=== PATIENT | female | born 1950 | race Caucasian/White ===

== ENCOUNTER 2016-09-03 07:36 | Outpatient (RCR) | payer BC ==
--- OUTSIDE RECORDS SUMMARY | 2016-08-28 08:23 | XMS REPORT | Continuity of Care Document ---
Author Author [facility] Organization [facility] Address Unknown Phone Unavailable Care Team Providers Care Human Resources Training Manager Name Role Phone MANE CUNNINGHAM MD PCP Insurance Providers Payer Name Policy Number Subscriber Name Relationship [facility] [id number] Glenda George 20 Self / Same As Patient Advance Directives Directive Response Recorded Date/Time Advance Directives No 01/04/15 7:58am Health Care Power of Pmp No 01/04/15 7:58am Organ Donor Yes 01/04/15 7:58am Resuscitation Status Full Code 01/04/15 7:58am Problems No known problems or medical conditions. Medications Medication Dose Route Sig Days/Qty Instructions Order Date Discontinued Date Status [place]-3/Dha/Epa/Fish Oil 2,000 Mg PO DAILY TAKES 2 (1000MG) CAPS IN THE MORNING AND 1 (1000MG) CAP IN THE EVENING 01/23/13 Active Niacin/Inositol Niacinate 1 Each PO DAILY 01/23/13 03/09/13 Discontinued Aspirin 81 Mg PO DAILY 01/23/13 Active Amlodipine Besylate (Norvasc 5 Mg) 7.5 Mg PO BEDTIME 01/23/13 Active Lisinopril 40 Mg PO DAILY 01/23/13 03/09/13 Discontinued Pravastatin Sodium 40 Mg PO DAILY 01/23/13 Active Metformin HCl (Glucophage) 1,000 Mg PO TWICE A DAY 01/23/13 Active Estradiol/Drospirenone 1 Each PO DAILY 01/23/13 03/09/13 Discontinued [place]-3/Dha/Epa/Fish Oil 1,000 Mg PO BEDTIME TAKES 2 (1000MG) CAPS IN THE MORNING AND 1 (1000MG) CAP IN THE EVENING 03/09/13 Active Cyanocobalamin 2,000 Mcg PO DAILY 03/09/13 Active Cholecalciferol 1,000 Unit PO DAILY 03/09/13 Active Ascorbate Calcium 500 Mg PO DAILY 03/09/13 Active Estradiol 1 Mg PO DAILY 03/09/13 Active Pioglitazone Hcl 30 Mg PO DAILY 03/09/13 Active Lisinopril (Zestril) 1 Each PO DAILY 05/11/13 Active Social History Social History Problem Response Recorded Date/Time Recent Foreign Travel No 11/22/2014 7:38am Hospital Discharge Instructions No hospital discharge instructions. Plan of Care No plan of care. Functional Status No functional status results. Allergies, Adverse Reactions, Alerts Allergen Type Severity Reaction Status Last Updated No Known Drug Allergies Allergy Unknown Active 09/12/07 Immunizations Name Given Type Date of Pneumonia Vaccine 06/20/12 Historical Date of Influenza Vaccine 06/20/12 Historical Vital Signs Acute Vital Signs Vital Response Date/Time Temperature (Fahrenheit) 97.5 degrees F (97.6 - 99.5) Temperature (Calculated Celsius) 36.00294 degrees C (36.4 - 37.5) Temperature Source Temporal Pulse Rate (adult) 76 bpm (60 - 90) Respiratory Rate 18 bpm (12 - 24) Blood Pressure 141/69 mm Hg Pain Pain Intensity 0 Height (Feet) 5 feet Height (Inches) 6.00 inches Height (Calculated Centimeters) 167.798977 cm Weight (Pounds) 285 pounds Weight (Ounces) 0.0 oz Weight (Calculated Grams) 967420.827 gm Weight (Calculated Kilograms) 129.480802 kilograms Height 5 ft 6 in Weight 285 lb Body Mass Index 46.0 kg/m^2 Results Laboratory Results Test Name Result Units Flags Reference Collection Date/Time Result Date/ Time Comments White Blood Count 7.1 10^3/uL 4.3-11.0 01/04/2015 7:45am 01/04/2015 8: 38am Red Blood Count 3.27 10^6/uL L 4.35-5.85 01/04/2015 7:45am 01/04/2015 8: 38am Hemoglobin 9.0 G/DL L 11.5-16.0 01/04/2015 7:45am 01/04/2015 8:38am Hematocrit 30 % L 35-52 01/04/2015 7:45am 01/04/2015 8:38am Mean Corpuscular Volume 92 FL 80-99 01/04/2015 7:45am 01/04/2015 8: 38am Mean Corpuscular Hemoglobin 28 PG 25-34 01/04/2015 7:45am 01/04/2015 8: 38am Mean Corpuscular Hemoglobin Concent 30 G/DL L 32-36 01/04/2015 7:45am 8:38am Red Cell Distribution Width 14.9 % H 10.0-14.5 01/04/2015 7:45am 2014 8:38am Platelet Count 225 10^3/uL 130-400 01/04/2015 7:45am 01/04/2015 8:38am Mean Platelet Volume 10.5 FL H 7.4-10.4 01/04/2015 7:45am 01/04/2015 8: 38am Neutrophils (%) (Auto) 63 % 42-75 01/04/2015 7:45am 01/04/2015 8:38am Lymphocytes (%) (Auto) 26 % 12-44 01/04/2015 7:45am 01/04/2015 8:38am Monocytes (%) (Auto) 7 % 0-12 01/04/2015 7:45am 01/04/2015 8:38am Eosinophils (%) (Auto) 4 % 0-10 01/04/2015 7:45am 01/04/2015 8:38am Basophils (%) (Auto) 0 % 0-10 01/04/2015 7:45am 01/04/2015 8:38am Neutrophils # (Auto) 4.4 X 10^3 1.8-7.8 01/04/2015 7:45am 01/04/2015 8: 38am Lymphocytes # (Auto) 1.8 X 10^3 1.0-4.0 01/04/2015 7:45am 01/04/2015 8: 38am Monocytes # (Auto) 0.5 X 10^3 0.0-1.0 01/04/2015 7:45am 01/04/2015 8: 38am Eosinophils # (Auto) 0.3 10^3/uL 0.0-0.3 01/04/2015 7:45am 01/04/2015 8 :38am Basophils # (Auto) 0.0 10^3/uL 0.0-0.1 01/04/2015 7:45am 01/04/2015 8: 38am Sodium Level 139 MMOL/L 135-145 01/04/2015 7:45am 01/04/2015 9:04am Potassium Level 5.0 MMOL/L 3.6-5.0 01/04/2015 7:45am 01/04/2015 9:04am Chloride Level 113 MMOL/L H 98-107 01/04/2015 7:45am 01/04/2015 9:04am Carbon Dioxide Level 19 MMOL/L L 21-32 01/04/2015 7:45am 01/04/2015 9: 04am Blood Urea Nitrogen 27 MG/DL H 7-18 01/04/2015 7:45am 01/04/2015 9:04am Creatinine 0.84 MG/DL 0.60-1.30 01/04/2015 7:45am 01/04/2015 9:04am BUN/Creatinine Ratio 32 01/04/2015 7:45am 01/04/2015 9:04am Estimat Glomerular Filtration Rate > 60 01/04/2015 7:45am 2014 9:04am GFR INTERPRETIVE DATA UNITS FOR ESTIMATED GFR (eGFR): mL/min/1.73 M2 REFERENCE RANGE FOR ESTIMATED GFR (eGFR) eGFR NORMAL eGFR >60 MODERATELY DECREASED eGFR 30-59 SEVERLY DECREASED eGFR 15-29 KIDNEY FAILURE <15 (OR DIALYSIS) Glucose Level 96 MG/DL 70-105 01/04/2015 7:45am 01/04/2015 9:04am Calcium Level 9.4 MG/DL 8.5-10.1 01/04/2015 7:45am 01/04/2015 9:04am Total Bilirubin 0.2 MG/DL 0.1-1.0 01/04/2015 7:45am 01/04/2015 9:04am Alkaline Phosphatase 74 U/L 40-136 01/04/2015 7:45am 01/04/2015 9:04am Aspartate Amino Transf (AST/SGOT) 11 U/L 5-34 01/04/2015 7:45am 2014 9:04am Alanine Aminotransferase (ALT/SGPT) 10 U/L 0-55 01/04/2015 7:45am 01/04 9:04am Total Protein 7.3 G/DL 6.4-8.2 01/04/2015 7:45am 01/04/2015 9:04am Albumin 3.9 G/DL 3.2-4.5 01/04/2015 7:45am 01/04/2015 9:04am Triglycerides Level 141 MG/DL <150 01/04/2015 7:45am 01/04/2015 9:04am Cholesterol Level 154 MG/DL < 200 01/04/2015 7:45am 01/04/2015 9:04am HDL Cholesterol 52 MG/DL 40-60 01/04/2015 7:45am 01/04/2015 9:04am LDL Cholesterol Direct 79 MG/DL 1-129 01/04/2015 7:45am 01/04/2015 9: 04am VLDL Cholesterol 28 MG/DL 5-40 01/04/2015 7:45am 01/04/2015 9:04am Thyroid Stimulating Hormone (TSH) 0.68 UIU/ML 0.35-4.94 01/04/2015 7: 45am 01/04/2015 9:19am Hemoglobin A1c 5.8 % 4.5-6.2 01/04/2015 7:45am 01/04/2015 9:23am Ferritin 121 NG/ML 15-150 01/04/2015 7:45am 01/07/2015 7:36am Iron Level 52 UG/DL 35-180 01/04/2015 7:45am 01/07/2015 7:36am Transferrin % Saturation 17 % 15-50 01/04/2015 7:45am 01/07/2015 7: 36am Total Iron Binding Capacity 315 UG/DL 280-380 01/04/2015 7:45am 2014 7:36am TESTING PERFORMED BY: [facility] [address] [place] [address] Procedures No known history of procedures. Encounters Encounter Location Date/Time Discharged Recurring Via [facility] 02/14/15 8:43am
[2016-08-28 08:57] VITALS: BP 177/74
[2016-08-28] MEDS: NS IV SCH (08:57)
[2016-08-28] MEDS: IRON SUCROSE IV SCH (08:57)
[2016-08-28] MEDS: ACETAMINOPHEN 500 MG TAB (TYLENOL) PO PRN (09:01)
[2016-08-28] MEDS: diphenhydrAMINE 50 MG/ML INJ (BENADRYL) IV PRN (09:01)
[2016-08-28 10:39] VITALS: BP 177/74
[2016-08-31] MEDS: NS IV SCH (16:15)
[2016-08-31] MEDS: IRON SUCROSE IV SCH (16:15)
[2016-08-31 18:03] VITALS: BP 133/64
[~2016-09-03] VITALS: Ht 167.6 cm; Wt 129.3 kg
[~2016-09-03 07:36] MED LIST: AMLO5TAB2 PO; ASCO-262 PO; ASP81TEC PO; CHOL10003 PO; CYAN10007 PO; ESTR-21 PO; ESTR1TAB24 PO; LISI40TA PO; METF-380 PO; NIAC1CAP PO; OMEG-12 PO; PIOG30TA25 PO; PRAV40TA PO
[2016-09-03 07:55] VITALS: BP 141/75
[2016-09-03] MEDS: IRON SUCROSE IV SCH (07:55)
[2016-09-03] MEDS: NS IV SCH (07:55)
[2016-09-03] MEDS: diphenhydrAMINE 50 MG/ML INJ (BENADRYL) IV PRN (08:38)
[2016-09-03] MEDS: ACETAMINOPHEN 500 MG TAB (TYLENOL) PO PRN (08:39)
[2016-09-03 09:20] VITALS: BP 141/75
== END 2016-11-26 | disposition home or self-care (01) ==
LOC: SDC 07:36
PROVIDERS: ATTEND Nurse Practitioner Family
DX: D50.9 Iron deficiency anemia, unspecified (principal)
CPT/HCPCS: 96365

== ENCOUNTER → 2016-11-05 | Outpatient (CLI) | payer BC ==
[~2016-11-05] VITALS: Ht 167.6 cm; Wt 129.3 kg
--- OUTSIDE RECORDS SUMMARY | 2016-11-05 08:09 | XMS REPORT | Continuity of Care Document ---
Author Author [facility] Organization [facility] Address Unknown Phone Unavailable Care Team Providers Care Auto Air Conditioning Apprentice Name Role Phone MANE CUNNINGHAM MD PCP Insurance Providers Payer Name Policy Number Subscriber Name Relationship [facility] [id number] Glenda George 20 Self / Same As Patient Advance Directives Directive Response Recorded Date/Time Advance Directives No 01/04/15 7:58am Health Care Power of Windows Server Architect No 01/04/15 7:58am Organ Donor Yes 01/04/15 7:58am Resuscitation Status Full Code 01/04/15 7:58am Problems No known problems or medical conditions. Medications Medication Dose Route Sig Days/Qty Instructions Order Date Discontinued Date Status [place]-3/Dha/Epa/Fish Oil 2,000 Mg PO DAILY TAKES 2 [...] 1 Each PO DAILY 01/23/13 03/09/13 Discontinued [place]-3/Dha/Epa/Fish Oil 1,000 Mg PO BEDTIME TAKES 2 [...] F (97.6 - 99.5) Temperature (Calculated Celsius) 36.66197 degrees C (36.4 - 37.5) Temperature Source Temporal Pulse Rate (adult) 76 bpm (60 - 90) Respiratory Rate 18 bpm (12 - 24) Blood Pressure 141/69 mm Hg Pain Pain Intensity 0 Height (Feet) 5 feet Height (Inches) 6.00 inches Height (Calculated Centimeters) 167.384246 cm Weight (Pounds) 285 pounds Weight (Ounces) 0.0 oz Weight (Calculated Grams) 390607.827 gm Weight (Calculated Kilograms) 129.705408 kilograms Height 5 ft 6 in Weight [...] 01/04/2015 7:45am 2014 7:36am TESTING PERFORMED BY: [facility] [address] [place] [address] Procedures No known history of procedures. Encounters Encounter Location Date/Time Discharged Recurring [facility] 02/14/15 8:43am
[2016-11-05 08:26] VITALS: BP 144/72
== END ==
LOC: EDSTATUS 06-12 08:05 → SDC 08:05
PROVIDERS: ATTEND Family Medicine
DX: Z45.2 Encounter for adjustment and management of vascular access device (principal)
CPT/HCPCS: 96523

== ENCOUNTER → 2017-01-07 | Outpatient (CLI) | payer BC ==
[~2017-01-07] VITALS: Ht 167.6 cm; Wt 129.3 kg
[2017-01-07 11:02] VITALS: BP 133/79
== END ==
LOC: SDC 10:30
PROVIDERS: ATTEND Family Medicine
DX: Z45.2 Encounter for adjustment and management of vascular access device (principal)
CPT/HCPCS: 96523

== ENCOUNTER → 2017-03-04 | Outpatient (CLI) | payer BC, MEDICARE ==
[~2017-03-04] VITALS: Ht 167.6 cm; Wt 129.3 kg
[2017-03-04 09:01] VITALS: BP 154/69
== END ==
LOC: SDC 08:28
PROVIDERS: ATTEND Family Medicine
DX: Z45.2 Encounter for adjustment and management of vascular access device (principal)
CPT/HCPCS: 96523

== ENCOUNTER → 2017-05-27 | Outpatient (CLI) | payer BC, MEDICARE ==
[~2017-05-27] VITALS: Ht 167.6 cm; Wt 129.3 kg
[2017-05-27 08:40] VITALS: BP 168/80
== END ==
LOC: SDC 08:25
PROVIDERS: ATTEND Family Medicine
DX: Z45.2 Encounter for adjustment and management of vascular access device (principal)
CPT/HCPCS: 96523

== ENCOUNTER → 2017-08-06 | Outpatient (CLI) | payer BC, MEDICARE ==
--- NOTE | 2017-08-09 20:00 | Diagnostic Imaging Report ---
Bilateral screening mammogram 2D views with tomosynthesis. The current study was also evaluated with a Computer Aided Detection (CAD) system. INDICATION: Screening. No current complaints stated on the questionnaire. COMPARISON: 08/31/2014. FINDINGS: The breasts are composed of scattered fibroglandular densities. There are occasional benign-appearing calcifications. Allowing for technique and positional differences, no suspicious change is seen. IMPRESSION: No significant change. ACR BI-RADS Category 2: Benign findings. Result letter will be mailed to the patient. Note: At least 10% of breast cancer is not imaged by mammography. Dictated by: Dictated on workstation # [id number]
== END ==
LOC: RAD 12:43
PROVIDERS: ATTEND Family Medicine
DX: Z12.31 Encounter for screening mammogram for malignant neoplasm of breast (principal)
CPT/HCPCS: 77067

== ENCOUNTER → 2017-08-10 | Outpatient (CLI) | payer BC, MEDICARE ==
--- NOTE | 2017-08-10 16:29 | Diagnostic Imaging Report ---
Three views of the left knee. INDICATION: Left knee pain. FINDINGS: No fracture, dislocation, or radiopaque foreign body. There is yjfj-ih-dvyprldu joint space narrowing in the medial compartment and tricompartment osteophyte formation seen. There is no suprapatellar effusion. No fracture, dislocation, or radiopaque foreign body. 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 Dictated by: Dictated on workstation # [id number]
== END ==
LOC: RAD 10:43
PROVIDERS: ATTEND Family Medicine
DX: M17.12 Unilateral primary osteoarthritis, left knee (principal)
CPT/HCPCS: 73562

== ENCOUNTER 2017-08-17 07:31 | Outpatient (RCR) | payer BC, MEDICARE ==
[2017-08-06] MEDS: ACETAMINOPHEN 325 MG TABLET/CAPLET (TYLENOL) PO PRN (10:58)
[2017-08-06] MEDS: IRON SUCROSE 300 MG/NS 250 ML (IVPB) IV SCH ×2 (10:58)
[2017-08-06] MEDS: diphenhydrAMINE 50 MG/ML INJ (BENADRYL) IV PRN (10:58)
[2017-08-06 12:30] VITALS: BP 164/78
[2017-08-09 15:50] VITALS: BP 136/57
[2017-08-09] MEDS: IRON SUCROSE 300 MG/NS 250 ML (IVPB) IV SCH ×2 (16:25)
[2017-08-09 17:58] VITALS: BP 136/57
[2017-08-11 08:35] VITALS: BP 160/63
[2017-08-11] MEDS: IRON SUCROSE 300 MG/NS 250 ML (IVPB) IV SCH ×2 (08:38)
[2017-08-11] MEDS: ACETAMINOPHEN 325 MG TABLET/CAPLET (TYLENOL) PO PRN (10:31)
[2017-08-11] MEDS: diphenhydrAMINE 50 MG/ML INJ (BENADRYL) IV PRN (10:31)
[2017-08-13] MEDS: diphenhydrAMINE 50 MG/ML INJ (BENADRYL) IV PRN (08:09)
[2017-08-13] MEDS: IRON SUCROSE 300 MG/NS 250 ML (IVPB) IV SCH ×2 (08:09)
[2017-08-13] MEDS: ACETAMINOPHEN 325 MG TABLET/CAPLET (TYLENOL) PO PRN (08:09)
[2017-08-13 09:46] VITALS: BP 163/70
[~2017-08-17] VITALS: Ht 167.6 cm; Wt 129.3 kg
[2017-08-17] MEDS: IRON SUCROSE 300 MG/NS 250 ML (IVPB) IV SCH ×2 (08:07)
[2017-08-17 10:00] VITALS: BP 140/63
[2017-10-20] MEDS ORDERED: LISI40TA PO (09:14)
[2017-10-20] MEDS ORDERED: ESTR1TAB24 PO (09:14)
[2017-10-20] MEDS ORDERED: METF1000 PO (09:14)
[2017-10-20] MEDS ORDERED: PRAV40TA2 PO (09:14)
[2017-10-20] MEDS ORDERED: [UNRECOGNIZED DRUG - CODE] PO ×2 (09:14)
[2017-10-20] MEDS ORDERED: CHOL100045 PO (09:14)
[2017-10-20] MEDS ORDERED: ASPI-983 PO (09:14)
[2017-10-20] MEDS ORDERED: PIOG30TA26 PO (09:14)
[2017-10-20] MEDS ORDERED: [UNRECOGNIZED DRUG - CODE] PO (09:14)
[2017-10-20] MEDS ORDERED: AMLO5TAB2 PO (09:14)
[2017-10-20] MEDS ORDERED: ASCO-262 PO (09:14)
== END 2017-11-04 | disposition home or self-care (01) ==
LOC: SDC 07:31
PROVIDERS: ATTEND Family Medicine
DX: D50.9 Iron deficiency anemia, unspecified (principal)
CPT/HCPCS: 96365; 96366

== ENCOUNTER → 2017-10-20 | Outpatient (CLI) | payer BC, MEDICARE ==
[~2017-10-20] VITALS: Ht 167.6 cm; Wt 129.3 kg
[~2017-10-20] MED LIST changes: +ASPI-983 PO; +CHOL100045 PO; +METF1000 PO; +PIOG30TA26 PO; +PRAV40TA2 PO; +[UNRECOGNIZED DRUG - CODE] PO; +[UNRECOGNIZED DRUG - CODE] PO
[2017-10-20 08:46] VITALS: BP 165/73
== END ==
LOC: SDC 07:45
PROVIDERS: ATTEND Family Medicine
DX: Z45.2 Encounter for adjustment and management of vascular access device (principal)
CPT/HCPCS: 96523

== ENCOUNTER → 2018-01-18 | Outpatient (CLI) | payer BC, MEDICARE ==
[~2018-01-18] VITALS: Ht 167.6 cm; Wt 129.3 kg
[~2018-01-18] MED LIST changes: -METF1000 PO; +METF10002 PO
[2018-01-18 12:40] VITALS: BP 136/69
== END ==
LOC: SDC 12:34
PROVIDERS: ATTEND Family Medicine
DX: Z45.2 Encounter for adjustment and management of vascular access device (principal)
CPT/HCPCS: 96523

== ENCOUNTER 2018-03-24 09:37 | Outpatient (CLI) | payer MEDICARE, OTHER ==
[~2018-03-24] VITALS: Ht 167.6 cm; Wt 129.3 kg
[~2018-03-24 09:37] MED LIST changes: -PIOG30TA26 PO; +PIOG30TA71 PO
[2018-03-24 10:00] VITALS: BP 113/74
== END 2018-03-24 10:00 | disposition home or self-care (01) ==
LOC: SDC 09:37
PROVIDERS: ATTEND Family Medicine
DX: Z45.2 Encounter for adjustment and management of vascular access device (principal)
CPT/HCPCS: 96523

== ENCOUNTER → 2018-05-19 | Outpatient (CLI) | payer MEDICARE, OTHER ==
[~2018-05-19] VITALS: Ht 167.6 cm; Wt 129.3 kg
[~2018-05-19] MED LIST changes: +AMLO5TAB7 PO; +METF-399 PO; -METF10002 PO
[2018-05-19 09:55] VITALS: BP 103/61
== END ==
LOC: SDC 09:35
PROVIDERS: ATTEND Family Medicine
DX: Z45.2 Encounter for adjustment and management of vascular access device (principal)
CPT/HCPCS: 96523

== ENCOUNTER 2018-06-28 07:50 | Outpatient (CLI) | payer MEDICARE, OTHER ==
[~2018-06-28] VITALS: Ht 167.6 cm; Wt 129.3 kg
[2018-06-28 08:50] VITALS: BP 128/69
[2018-06-28 09:03] LABS: BASOPHILS % (AUTO) 0 % (0-10); EOSINOPHILS # (AUTO) 0.2 10^3/uL (0.0-0.3); EOSINOPHILS % (AUTO) 2 % (0-10); HEMATOCRIT 29 % (35-52); LYMPHOCYTES # (AUTO) 1.5 X 10^3 (1.0-4.0); LYMPHOCYTES % (AUTO) 21 % (12-44); MEAN CORPUSCULAR HEMOGLOBIN 27 PG (25-34); MEAN CORPUSCULAR HGB CONC 31 G/DL (32-36); MEAN CORPUSCULAR VOLUME 89 FL (80-99); MEAN PLATELET VOLUME 10.2 FL (7.4-10.4); MONOCYTES # (AUTO) 0.7 X 10^3 (0.0-1.0); MONOCYTES % (AUTO) 9 % (0-12); NEUTROPHILS # (AUTO) 4.9 X 10^3 (1.8-7.8); NEUTROPHILS % (AUTO) 68 % (42-75); PLATELET COUNT 253 10^3/uL (130-400); RED CELL DISTRIBUTION WIDTH 16.2 % (10.0-14.5); WHITE BLOOD COUNT 7.2 10^3/uL (4.3-11.0)
== END 2018-06-28 08:55 | disposition home or self-care (01) ==
LOC: SDC 07:50 → LAB 08:55
PROVIDERS: ATTEND Family Medicine
DX: D50.9 Iron deficiency anemia, unspecified (principal)
CPT/HCPCS: 36415; 83540; 85025

== ENCOUNTER 2018-07-18 08:28 | Outpatient (RCR) | payer MEDICARE, OTHER ==
[2018-07-08 08:40] VITALS: BP 125/53
[2018-07-08] MEDS: IRON SUCROSE 200 MG/10 ML (VENOFER) VIAL IV SCH (09:05)
[2018-07-08] MEDS: diphenhydrAMINE 25 MG TAB (BENADRYL) PO SCH (09:11)
[2018-07-08] MEDS: ACETAMINOPHEN 325 MG TABLET PO SCH (09:12)
[2018-07-11 09:00] VITALS: BP 118/60
[2018-07-11] MEDS: IRON SUCROSE 200 MG/10 ML (VENOFER) VIAL IV SCH (09:21)
[2018-07-11] MEDS: diphenhydrAMINE 25 MG TAB (BENADRYL) PO SCH (09:27)
[2018-07-11] MEDS: ACETAMINOPHEN 325 MG TABLET PO SCH (09:27)
[2018-07-13] MEDS: IRON SUCROSE 200 MG/10 ML (VENOFER) VIAL IV SCH (09:54)
[2018-07-13 10:20] VITALS: BP 106/52
[2018-07-13] MEDS: ACETAMINOPHEN 325 MG TABLET PO SCH (12:05)
[2018-07-13] MEDS: diphenhydrAMINE 25 MG TAB (BENADRYL) PO SCH (12:05)
[2018-07-15] MEDS: IRON SUCROSE 200 MG/10 ML (VENOFER) VIAL IV SCH (08:27)
[2018-07-15] MEDS: diphenhydrAMINE 25 MG TAB (BENADRYL) PO SCH (08:43)
[2018-07-15] MEDS: ACETAMINOPHEN 325 MG TABLET PO SCH (08:44)
[2018-07-15 08:55] VITALS: BP 120/52
[~2018-07-18] VITALS: Ht 167.6 cm; Wt 129.3 kg
[~2018-07-18 08:28] MED LIST changes: +IRON SUCROSE 200 MG/10 ML (VENOFER) VIAL IV ONE
[2018-07-18] MEDS: IRON SUCROSE 200 MG/10 ML (VENOFER) VIAL IV SCH (08:39)
[2018-07-18] MEDS: ACETAMINOPHEN 325 MG TABLET PO SCH (08:48)
[2018-07-18] MEDS: diphenhydrAMINE 25 MG TAB (BENADRYL) PO SCH (08:48)
[2018-07-18 09:15] VITALS: BP 122/61
== END 2018-07-18 09:15 | disposition home or self-care (01) ==
LOC: SDC 08:28
PROVIDERS: ATTEND Family Medicine
DX: D50.9 Iron deficiency anemia, unspecified (principal)
CPT/HCPCS: 96365

== ENCOUNTER 2018-09-08 09:24 | Outpatient (RCR) | payer MEDICARE, OTHER ==
[~2018-09-08] VITALS: Ht 167.6 cm; Wt 129.3 kg
[~2018-09-08 09:24] MED LIST changes: -IRON SUCROSE 200 MG/10 ML (VENOFER) VIAL IV ONE
[2018-09-08 10:09] VITALS: BP 155/57
== END 2018-09-26 | disposition home or self-care (01) ==
LOC: SDC 09:24
PROVIDERS: ATTEND Family Medicine
DX: Z45.2 Encounter for adjustment and management of vascular access device (principal)
CPT/HCPCS: 96523

== ENCOUNTER 2018-09-15 10:21 | Outpatient (RCR) | payer MEDICARE, OTHER ==
[2018-09-01 12:33] LABS: ABSOLUTE RETIC # 83 10e9/L (24-90); BASOPHILS % (AUTO) 0 % (0-10); EOSINOPHILS # (AUTO) 0.3 10^3/uL (0.0-0.3); EOSINOPHILS % (AUTO) 3 % (0-10); HEMATOCRIT 32 % (35-52); HEMOGLOBIN 9.6 G/DL (11.5-16.0); LYMPHOCYTES # (AUTO) 1.4 X 10^3 (1.0-4.0); LYMPHOCYTES % (AUTO) 16 % (12-44); MEAN CORPUSCULAR HEMOGLOBIN 28 PG (25-34); MEAN CORPUSCULAR HGB CONC 30 G/DL (32-36); MEAN CORPUSCULAR VOLUME 95 FL (80-99); MEAN PLATELET VOLUME 9.6 FL (7.4-10.4); MONOCYTES # (AUTO) 0.7 X 10^3 (0.0-1.0); MONOCYTES % (AUTO) 7 % (0-12); NEUTROPHILS # (AUTO) 6.6 X 10^3 (1.8-7.8); NEUTROPHILS % (AUTO) 74 % (42-75); PLATELET COUNT 219 10^3/uL (130-400); RED CELL DISTRIBUTION WIDTH 15.5 % (10.0-14.5); RETICULOCYTE % 2.45 % (0.50-2.40); WHITE BLOOD COUNT 8.9 10^3/uL (4.3-11.0)
[2018-09-01 12:52] LABS: ALBUMIN 4.1 GM/DL (3.2-4.5); BILIRUBIN,TOTAL 0.2 MG/DL (0.1-1.0); CALCIUM 9.8 MG/DL (8.5-10.1); CREATININE SERUM 0.98 MG/DL (0.60-1.30); POTASSIUM 5.3 MMOL/L (3.6-5.0); TOTAL PROTEIN 7.8 GM/DL (6.4-8.2)
[~2018-09-15 10:21] MED LIST changes: -AMLO5TAB7 PO; +AMLO5TAB9 PO
== END 2018-11-30 | disposition home or self-care (01) ==
LOC: ONC 10:21
PROVIDERS: ATTEND Internal Medicine Hematology & Oncology
DX: D64.9 Anemia, unspecified (principal); E11.9 Type 2 diabetes mellitus without complications; I10 Essential (primary) hypertension; E78.5 Hyperlipidemia, unspecified; Z79.82 Long term (current) use of aspirin; Z79.84 Long term (current) use of oral hypoglycemic drugs; Z79.899 Other long term (current) drug therapy; Z87.891 Personal history of nicotine dependence
CPT/HCPCS: 36415; 80053; 82525; 82607; 82668; 82728; 82746; 83540; 83883; 84155; 84165; 84238; 85025; 85045; 99213; 99214

== ENCOUNTER → 2018-11-15 | Outpatient (CLI) | payer MEDICARE, OTHER ==
[~2018-11-15] VITALS: Ht 167.6 cm; Wt 129.3 kg
[~2018-11-15] MED LIST changes: +CATHETER FLUSH 10 ML SYR IV PRN; +CATHETER FLUSH 10 ML SYR IV SCH
[2018-11-15 10:20] VITALS: BP 145/73
== END ==
LOC: EDSTATUS 09-27 09:54 → SDC 09:55
PROVIDERS: ATTEND Family Medicine
DX: Z45.2 Encounter for adjustment and management of vascular access device (principal)
CPT/HCPCS: 96523

== ENCOUNTER → 2019-01-27 | Outpatient (CLI) | payer MEDICARE, OTHER ==
[~2019-01-27] VITALS: Ht 167.6 cm; Wt 129.3 kg
[~2019-01-27] MED LIST changes: -CATHETER FLUSH 10 ML SYR IV PRN; -CATHETER FLUSH 10 ML SYR IV SCH
[2019-01-27 11:20] VITALS: BP 123/60
== END | disposition home or self-care (01) ==
LOC: SDC 11:15
PROVIDERS: ATTEND Family Medicine
DX: Z45.2 Encounter for adjustment and management of vascular access device (principal)
CPT/HCPCS: 96523

== ENCOUNTER → 2019-03-24 | Outpatient (CLI) | payer MEDICARE, OTHER ==
[~2019-03-24] VITALS: Ht 167.6 cm; Wt 129.3 kg
[~2019-03-24] MED LIST changes: +CATHETER FLUSH 10 ML SYR IV PRN
[2019-03-24 08:45] VITALS: BP 145/83
== END ==
LOC: SDC 08:33
PROVIDERS: ATTEND Family Medicine
DX: Z45.2 Encounter for adjustment and management of vascular access device (principal)
CPT/HCPCS: 96523

== ENCOUNTER → 2019-05-19 | Outpatient (CLI) | payer MEDICARE, OTHER ==
[~2019-05-19] VITALS: Ht 167.6 cm; Wt 129.3 kg
[~2019-05-19] MED LIST changes: -CATHETER FLUSH 10 ML SYR IV PRN
[2019-05-19 08:00] VITALS: BP 145/61
== END ==
LOC: SDC 07:56
PROVIDERS: ATTEND Family Medicine
DX: Z45.2 Encounter for adjustment and management of vascular access device (principal)
CPT/HCPCS: 96523

== ENCOUNTER 2019-09-22 08:31 | Outpatient (RCR) | payer MEDICARE, OTHER ==
[2019-07-28 08:15] VITALS: BP 141/66
[~2019-09-22] VITALS: Ht 162.6 cm
[~2019-09-22 08:31] MED LIST changes: +CATHETER FLUSH 10 ML SYR IV PRN
[2019-09-22 08:43] VITALS: BP 148/80
== END 2019-10-26 | disposition home or self-care (01) ==
LOC: SDC 08:31
PROVIDERS: ATTEND Nurse Practitioner Family
DX: Z45.2 Encounter for adjustment and management of vascular access device (principal)
CPT/HCPCS: 96523

== ENCOUNTER 2019-10-24 14:48 | Outpatient (RCR) | payer MEDICARE, OTHER ==
[~2019-10-24 14:48] MED LIST changes: -CATHETER FLUSH 10 ML SYR IV PRN
== END 2020-01-22 | disposition home or self-care (01) ==
PROVIDERS: ATTEND Family Medicine
DX: I89.0 Lymphedema, not elsewhere classified (principal)

== ENCOUNTER → 2019-11-20 | Outpatient (CLI) | payer MEDICARE, OTHER ==
[~2019-11-20] VITALS: Ht 162.6 cm
[2019-11-20 08:10] VITALS: BP 108/82
== END ==
LOC: EDSTATUS 10-27 08:04 → SDC 08:04
PROVIDERS: ATTEND Nurse Practitioner Family
DX: Z45.2 Encounter for adjustment and management of vascular access device (principal)
CPT/HCPCS: 96523

== ENCOUNTER → 2019-11-23 | Outpatient (CLI) | payer MEDICARE, OTHER | LOC: WOUNDCARE 08:46 | PROVIDERS: ATTEND Surgery | DX: E11.622 Type 2 diabetes mellitus with other skin ulcer (principal); E11.52 Type 2 diabetes mellitus with diabetic peripheral angiopathy with gangrene; I70.262 Atherosclerosis of native arteries of extremities with gangrene, left leg; L97.221 Non-pressure chronic ulcer of left calf limited to breakdown of skin; L97.211 Non-pressure chronic ulcer of right calf limited to breakdown of skin; I89.0 Lymphedema, not elsewhere classified; E66.01 Morbid (severe) obesity due to excess calories; I65.22 Occlusion and stenosis of left carotid artery | CPT/HCPCS: 99214 ==

== ENCOUNTER → 2019-11-28 | Outpatient (CLI) | payer MEDICARE, OTHER | LOC: LAB 10:30 | PROVIDERS: ATTEND Surgery | DX: E11.622 Type 2 diabetes mellitus with other skin ulcer (principal); L97.221 Non-pressure chronic ulcer of left calf limited to breakdown of skin; I89.0 Lymphedema, not elsewhere classified; E66.01 Morbid (severe) obesity due to excess calories; I65.22 Occlusion and stenosis of left carotid artery ==

== ENCOUNTER → 2019-11-28 | Outpatient (CLI) | payer MEDICARE, OTHER | LOC: WOUNDCARE 09:11 | PROVIDERS: ATTEND Surgery | DX: E11.622 Type 2 diabetes mellitus with other skin ulcer (principal); E11.52 Type 2 diabetes mellitus with diabetic peripheral angiopathy with gangrene; I96 Gangrene, not elsewhere classified; L97.221 Non-pressure chronic ulcer of left calf limited to breakdown of skin; I65.22 Occlusion and stenosis of left carotid artery; I89.0 Lymphedema, not elsewhere classified; E66.01 Morbid (severe) obesity due to excess calories | CPT/HCPCS: 99213 ==

== ENCOUNTER → 2019-11-28 | Outpatient (CLI) | payer MEDICARE, OTHER ==
--- NOTE | 2019-11-28 13:10 | Diagnostic Imaging Report ---
INDICATION: Routine screening. Comparison is made prior mammogram from 08/06/2017 and 08/31/2014. 2-D and 3-D bilateral screening mammography was performed with CAD. Scattered fibroglandular densities are identified bilaterally. Scattered benign calcifications are noted in both breasts. No mass or malignant-appearing microcalcifications are seen. Axillae are unremarkable. IMPRESSION: BI-RADS Category 2 No mammographic features suspicious for malignancy are identified. ACR BI-RADS Category 2: Benign findings. Result letter will be mailed to the patient. Note: At least 10% of breast cancer is not imaged by mammography. Dictated by: Dictated on workstation # [id number]
--- NOTE | 2019-11-28 14:22 | Diagnostic Imaging Report ---
PROCEDURE: US carotid duplex, bilateral. TECHNIQUE: Multiple real-time grayscale images were obtained over the carotid arteries in various projections, bilaterally. Additional spectral analysis and color Doppler duplex images were also obtained. INDICATION: Bilateral carotid bruits. FINDINGS: There is some mild plaque identified in the bilateral carotid bulbs and carotid bifurcations. Velocities are normal bilaterally. No velocity elevation or stenosis is seen. Both vertebral arteries show antegrade flow. IMPRESSION: Mild bilateral carotid plaque. There is no evidence of a hemodynamically significant stenosis. Parameters based on the consensus panel Price-Scale and Doppler ultrasound criteria published July 2003, Radiology, Volume 229. DOPPLER (peak systolic velocity M/S Right Left CCA .76 1.06 ICA Proximal .69 .89 ICA Mid .86 1 ICA Distal .92 .91 RATIO 1.20 .94 ECA 1.07 1.32 VERT .74 .52 Dictated by: Dictated on workstation # [id number]
== END ==
LOC: RAD 10:21
PROVIDERS: ATTEND Family Medicine
DX: Z12.31 Encounter for screening mammogram for malignant neoplasm of breast (principal); I65.23 Occlusion and stenosis of bilateral carotid arteries
CPT/HCPCS: 36415; 77067; 84134; 93880

== ENCOUNTER → 2019-12-07 | Outpatient (CLI) | payer MEDICARE, OTHER | LOC: WOUNDCARE 08:01 | PROVIDERS: ATTEND Surgery | DX: E11.622 Type 2 diabetes mellitus with other skin ulcer (principal); E11.620 Type 2 diabetes mellitus with diabetic dermatitis; L97.221 Non-pressure chronic ulcer of left calf limited to breakdown of skin; I89.0 Lymphedema, not elsewhere classified; E66.01 Morbid (severe) obesity due to excess calories; I65.22 Occlusion and stenosis of left carotid artery | CPT/HCPCS: 99213 ==

== ENCOUNTER → 2019-12-21 | Outpatient (CLI) | payer MEDICARE, OTHER | LOC: WOUNDCARE 08:08 | PROVIDERS: ATTEND Surgery | DX: E11.622 Type 2 diabetes mellitus with other skin ulcer (principal); E11.620 Type 2 diabetes mellitus with diabetic dermatitis; L97.221 Non-pressure chronic ulcer of left calf limited to breakdown of skin; I89.0 Lymphedema, not elsewhere classified; E66.01 Morbid (severe) obesity due to excess calories | CPT/HCPCS: 99213 ==

== ENCOUNTER → 2020-01-04 | Outpatient (CLI) | payer MEDICARE, OTHER | LOC: WOUNDCARE 08:12 | PROVIDERS: ATTEND Surgery | DX: E11.622 Type 2 diabetes mellitus with other skin ulcer (principal); L97.221 Non-pressure chronic ulcer of left calf limited to breakdown of skin; I89.0 Lymphedema, not elsewhere classified; E66.01 Morbid (severe) obesity due to excess calories | CPT/HCPCS: 29581 ==

== ENCOUNTER → 2020-01-08 | Outpatient (CLI) | payer MEDICARE, OTHER | LOC: WOUNDCARE 09:50 | PROVIDERS: ATTEND Surgery | DX: E11.622 Type 2 diabetes mellitus with other skin ulcer (principal); L97.222 Non-pressure chronic ulcer of left calf with fat layer exposed; I89.0 Lymphedema, not elsewhere classified; E66.01 Morbid (severe) obesity due to excess calories | CPT/HCPCS: 99213 ==

== ENCOUNTER → 2020-01-15 | Outpatient (CLI) | payer MEDICARE, OTHER ==
[2020-01-15 08:14] VITALS: BP 177/97
== END ==
LOC: SDC 07:56
PROVIDERS: ATTEND Family Medicine
DX: Z45.2 Encounter for adjustment and management of vascular access device (principal)
CPT/HCPCS: 96523

== ENCOUNTER → 2020-01-25 | Outpatient (CLI) | payer MEDICARE, OTHER | LOC: WOUNDCARE 08:11 | PROVIDERS: ATTEND Surgery | DX: E11.622 Type 2 diabetes mellitus with other skin ulcer (principal); L97.222 Non-pressure chronic ulcer of left calf with fat layer exposed; I89.0 Lymphedema, not elsewhere classified; E66.01 Morbid (severe) obesity due to excess calories | CPT/HCPCS: 99213 ==

== ENCOUNTER → 2020-03-11 | Outpatient (CLI) | payer MEDICARE, OTHER ==
[~2020-03-11] VITALS: Ht 167.6 cm
[2020-03-11 10:30] VITALS: BP 170/79
== END ==
LOC: SDC 10:02
PROVIDERS: ATTEND Nurse Practitioner Family
DX: Z45.2 Encounter for adjustment and management of vascular access device (principal)
CPT/HCPCS: 96523

== ENCOUNTER 2020-04-25 12:56 | Outpatient (RCR) | payer MEDICARE, OTHER | END 2020-04-29 | disposition home or self-care (01) | PROVIDERS: ATTEND Family Medicine | DX: I89.0 Lymphedema, not elsewhere classified (principal); M17.0 Bilateral primary osteoarthritis of knee ==

== ENCOUNTER → 2020-05-06 | Outpatient (CLI) | payer MEDICARE, OTHER ==
[2020-05-06 08:30] VITALS: BP 162/66
== END ==
LOC: SDC 08:22
PROVIDERS: ATTEND Nurse Practitioner Family
DX: Z45.2 Encounter for adjustment and management of vascular access device (principal)
CPT/HCPCS: 96523

== ENCOUNTER → 2020-07-01 | Outpatient (CLI) | payer MEDICARE, OTHER ==
[~2020-07-01] MED LIST changes: +ASPI-1238 PO; -ASPI-983 PO
[2020-07-01 08:30] VITALS: BP 146/66
== END ==
LOC: SDC 08:13
PROVIDERS: ATTEND Family Medicine
DX: Z45.2 Encounter for adjustment and management of vascular access device (principal)
CPT/HCPCS: 96523

== ENCOUNTER → 2020-07-25 | Outpatient (CLI) | payer MEDICARE, OTHER ==
[~2020-07-25] MED LIST changes: +AMLO-250 PO; -AMLO5TAB9 PO
== END ==
LOC: WOUNDCARE 08:56
PROVIDERS: ATTEND Surgery
DX: I89.0 Lymphedema, not elsewhere classified (principal); L97.221 Non-pressure chronic ulcer of left calf limited to breakdown of skin; E66.01 Morbid (severe) obesity due to excess calories; E11.622 Type 2 diabetes mellitus with other skin ulcer; I70.203 Unspecified atherosclerosis of native arteries of extremities, bilateral legs; I96 Gangrene, not elsewhere classified; Z68.44 Body mass index [BMI] 60.0-69.9, adult
CPT/HCPCS: 99214

== ENCOUNTER → 2020-07-31 | Outpatient (CLI) | payer MEDICARE, OTHER ==
--- NOTE | 2020-07-31 11:13 | Diagnostic Imaging Report ---
PROCEDURE: US Bilateral lower extremity arterial. TECHNIQUE: Multiple real-time grayscale images are obtained through both lower extremity arterial systems with color Doppler imaging and color Doppler spectral analysis. INDICATION: Atherosclerosis and diabetes. Study is somewhat limited due to patient's body habitus. FINDINGS: Right lower extremity: Right common femoral artery does show triphasic waveforms. There are biphasic waveforms in the superficial femoral artery and popliteal artery. The proximal and mid anterior tibial artery is not visualized. Distal anterior tibial artery is biphasic. Posterior tibial artery is monophasic throughout its course. Dorsalis pedis artery is biphasic and patent. Left lower extremity: Left common femoral artery is monophasic. There are some biphasic waveforms in the proximal left SFA with monophasic waveforms in the mid left SFA. There are also some monophasic waveforms in the popliteal artery. The proximal and mid anterior tibial artery is monophasic with biphasic waveforms distally. Posterior tibial artery is biphasic and patent. The dorsalis pedis is monophasic. IMPRESSION: The velocities appear to be fairly symmetric bilaterally apart from some dampened velocities within the posterior tibial artery on the right compared to the left. There is some dampening of velocities in the right popliteal artery compared to the left as well. The proximal and mid right anterior tibial artery was not visualized. Dictated by: Dictated on workstation # [id number]
== END ==
LOC: RAD 09:00
PROVIDERS: ATTEND Surgery
DX: I70.203 Unspecified atherosclerosis of native arteries of extremities, bilateral legs (principal); I89.0 Lymphedema, not elsewhere classified; L97.221 Non-pressure chronic ulcer of left calf limited to breakdown of skin; E66.01 Morbid (severe) obesity due to excess calories; E11.622 Type 2 diabetes mellitus with other skin ulcer
CPT/HCPCS: 93925

== ENCOUNTER → 2020-08-01 | Outpatient (CLI) | payer MEDICARE, OTHER | LOC: WOUNDCARE 08:22 | PROVIDERS: ATTEND Surgery | DX: I89.0 Lymphedema, not elsewhere classified (principal); L97.221 Non-pressure chronic ulcer of left calf limited to breakdown of skin; E66.01 Morbid (severe) obesity due to excess calories; E11.622 Type 2 diabetes mellitus with other skin ulcer; E11.52 Type 2 diabetes mellitus with diabetic peripheral angiopathy with gangrene | CPT/HCPCS: 99213 ==

== ENCOUNTER → 2020-08-08 | Outpatient (CLI) | payer MEDICARE, OTHER | LOC: WOUNDCARE 08:12 | PROVIDERS: ATTEND Surgery | DX: I89.0 Lymphedema, not elsewhere classified (principal); L97.221 Non-pressure chronic ulcer of left calf limited to breakdown of skin; E66.01 Morbid (severe) obesity due to excess calories; E11.622 Type 2 diabetes mellitus with other skin ulcer | CPT/HCPCS: 99213 ==

== ENCOUNTER → 2020-08-22 | Outpatient (CLI) | payer MEDICARE, OTHER | LOC: WOUNDCARE 08:17 | PROVIDERS: ATTEND Surgery | DX: I89.0 Lymphedema, not elsewhere classified (principal); L97.221 Non-pressure chronic ulcer of left calf limited to breakdown of skin; E66.01 Morbid (severe) obesity due to excess calories; E11.622 Type 2 diabetes mellitus with other skin ulcer; L30.9 Dermatitis, unspecified | CPT/HCPCS: 99212 ==

== ENCOUNTER → 2020-09-05 | Outpatient (CLI) | payer MEDICARE, OTHER | LOC: WOUNDCARE 08:23 | PROVIDERS: ATTEND Surgery | DX: I89.0 Lymphedema, not elsewhere classified (principal); E66.01 Morbid (severe) obesity due to excess calories; L30.9 Dermatitis, unspecified | CPT/HCPCS: 99212 ==

== ENCOUNTER → 2020-09-19 | Outpatient (CLI) | payer MEDICARE, OTHER | LOC: WOUNDCARE 08:15 | PROVIDERS: ATTEND Surgery | DX: I89.0 Lymphedema, not elsewhere classified (principal); E66.01 Morbid (severe) obesity due to excess calories; L30.9 Dermatitis, unspecified | CPT/HCPCS: 99212 ==

== ENCOUNTER → 2021-01-31 | Day surgery (SDC) | payer MEDICARE, OTHER ==
[2020-11-20 10:32] VITALS: BP 154/93
[~2021-01-31] VITALS: Ht 152 cm
[~2021-01-31] MED LIST changes: +LISI40TA9 PO
[2021-01-31 09:00] VITALS: BP 145/70
== END | disposition home or self-care (01) ==
LOC: EDSTATUS 11-12 09:56 → SDC 11-20 09:57
PROVIDERS: ATTEND Family Medicine
DX: Z45.2 Encounter for adjustment and management of vascular access device (principal)
CPT/HCPCS: 96523

== ENCOUNTER → 2021-05-08 | Outpatient (CLI) | payer MEDICARE, OTHER ==
[~2021-05-08] VITALS: Ht 157 cm; Wt 100.0 kg
[2021-05-08 08:10] VITALS: BP 129/61
== END ==
LOC: SDC 08:04
PROVIDERS: ATTEND Nurse Practitioner Family
DX: Z45.2 Encounter for adjustment and management of vascular access device (principal)
CPT/HCPCS: 96523

== ENCOUNTER 2021-07-03 08:37 | Outpatient (CLI) | payer MEDICARE, OTHER ==
[2021-07-03 08:50] VITALS: BP 133/61
== END 2021-07-03 09:31 | disposition home or self-care (01) ==
LOC: SDC 08:37
PROVIDERS: ATTEND Family Medicine
DX: Z45.2 Encounter for adjustment and management of vascular access device (principal)
CPT/HCPCS: 96523

== ENCOUNTER → 2021-08-28 | Outpatient (CLI) | payer MEDICARE, OTHER ==
[~2021-08-28] MED LIST changes: +CYAN2000 PO; -[UNRECOGNIZED DRUG - CODE] PO
[2021-08-28 09:04] VITALS: BP 146/69
== END ==
LOC: SDC 08:49
PROVIDERS: ATTEND Family Medicine
DX: Z45.2 Encounter for adjustment and management of vascular access device (principal)
CPT/HCPCS: 96523

== ENCOUNTER → 2021-10-31 | Outpatient (CLI) | payer MEDICARE, OTHER ==
[~2021-10-31] VITALS: Wt 100.0 kg
[2021-10-31 09:00] VITALS: BP 141/65
== END ==
LOC: SDC 08:45
PROVIDERS: ATTEND Family Medicine
DX: Z45.2 Encounter for adjustment and management of vascular access device (principal)
CPT/HCPCS: 96523

== ENCOUNTER → 2021-12-26 | Outpatient (CLI) | payer MEDICARE, OTHER ==
[2021-12-26 09:00] VITALS: BP 131/58
== END ==
LOC: SDC 08:57
PROVIDERS: ATTEND Family Medicine
DX: Z45.2 Encounter for adjustment and management of vascular access device (principal)
CPT/HCPCS: 96523

== ENCOUNTER → 2022-02-03 | Outpatient (CLI) | payer MEDICARE, OTHER ==
--- NOTE | 2022-02-03 13:18 | Diagnostic Imaging Report ---
INDICATION: Routine screening. COMPARISON: 11/28/2019 and 08/06/2017. TECHNIQUE: 2D and 3D bilateral screening mammography was performed with CAD. FINDINGS: Scattered fibroglandular densities are identified bilaterally. An ovoid retroareolar density in the right breast appears stable. No new mass or malignant-appearing microcalcifications are seen. There are scattered benign calcifications in both breasts. No malignant-appearing microcalcifications are seen. The axillae are unremarkable. IMPRESSION: No mammographic features suspicious for malignancy are identified. ACR BI-RADS Category 2: Benign findings. Result letter will be mailed to the patient. Note: At least 10% of breast cancer is not imaged by mammography. Dictated by: Dictated on workstation # [id number]
== END ==
LOC: RAD 08:45
PROVIDERS: ATTEND Family Medicine
DX: Z12.31 Encounter for screening mammogram for malignant neoplasm of breast (principal); Z78.0 Asymptomatic menopausal state
CPT/HCPCS: 77063; 77067

== ENCOUNTER → 2022-02-03 | Outpatient (CLI) | payer MEDICARE, OTHER ==
[~2022-02-03] MED LIST changes: +IRON DEXTRAN 1,000 MG/NS 250 ML IVPB IV ONE; +IRON DEXTRAN 25 MG/NS 6.25 ML TOTAL VOLUME IV ONE
[2022-02-03 13:45] VITALS: BP 130/53
== END ==
LOC: SDC 10:32
PROVIDERS: ATTEND Nurse Practitioner Family
DX: D50.9 Iron deficiency anemia, unspecified (principal)
CPT/HCPCS: 96365

== ENCOUNTER → 2022-02-03 | Outpatient (CLI) | payer MEDICARE, OTHER ==
[~2022-02-03] MED LIST changes: -IRON DEXTRAN 1,000 MG/NS 250 ML IVPB IV ONE; -IRON DEXTRAN 25 MG/NS 6.25 ML TOTAL VOLUME IV ONE
== END ==
LOC: WOUNDCARE 09:02
PROVIDERS: ATTEND Family Medicine
DX: L97.221 Non-pressure chronic ulcer of left calf limited to breakdown of skin (principal); L97.211 Non-pressure chronic ulcer of right calf limited to breakdown of skin; I89.0 Lymphedema, not elsewhere classified; E66.01 Morbid (severe) obesity due to excess calories; E11.621 Type 2 diabetes mellitus with foot ulcer; L97.509 Non-pressure chronic ulcer of other part of unspecified foot with unspecified severity; D50.8 Other iron deficiency anemias; E11.22 Type 2 diabetes mellitus with diabetic chronic kidney disease; N18.30 Chronic kidney disease, stage 3 unspecified
CPT/HCPCS: 99214

== ENCOUNTER → 2022-02-05 | Outpatient (CLI) | payer MEDICARE, OTHER ==
--- NOTE | 2022-02-05 13:02 | Diagnostic Imaging Report ---
INDICATION: Peripheral vascular disease. TECHNIQUE: Noninvasive study performed in the routine fashion. FINDINGS: On the right side, ankle-brachial index was 0.98 for the calf and 0.90 for the posterior tibial artery at the ankle and 0.92 for dorsalis pedis at the ankle. Digital ankle-brachial index fell to 0.44. On the left side, the ankle-brachial index at the calf level was 1.10, posterior tibial was 0.90 at the ankle level, and dorsalis pedis was 0.89 at the ankle level. Ankle-brachial index dropped to 0.60 at the digital level. Waveforms appeared symmetric. IMPRESSION: Evidence of distal small vessel disease as described above. Dictated by: Dictated on workstation # [id number]
== END ==
LOC: RAD 09:45
PROVIDERS: ATTEND Family Medicine
DX: L97.221 Non-pressure chronic ulcer of left calf limited to breakdown of skin (principal); I73.9 Peripheral vascular disease, unspecified
CPT/HCPCS: 93923

== ENCOUNTER → 2022-02-09 | Outpatient (CLI) | payer MEDICARE, OTHER | LOC: WOUNDCARE 08:01 | PROVIDERS: ATTEND Family Medicine | DX: L97.221 Non-pressure chronic ulcer of left calf limited to breakdown of skin (principal); L97.211 Non-pressure chronic ulcer of right calf limited to breakdown of skin; I89.0 Lymphedema, not elsewhere classified; E66.01 Morbid (severe) obesity due to excess calories; E11.622 Type 2 diabetes mellitus with other skin ulcer; D50.8 Other iron deficiency anemias; N18.30 Chronic kidney disease, stage 3 unspecified; D63.1 Anemia in chronic kidney disease; E11.52 Type 2 diabetes mellitus with diabetic peripheral angiopathy with gangrene; B37.2 Candidiasis of skin and nail | CPT/HCPCS: 29581; A6207; A6253; G0463 ==

== ENCOUNTER → 2022-02-12 | Outpatient (CLI) | payer MEDICARE, OTHER | LOC: WOUNDCARE 08:06 | PROVIDERS: ATTEND Family Medicine | DX: E11.622 Type 2 diabetes mellitus with other skin ulcer (principal); L97.221 Non-pressure chronic ulcer of left calf limited to breakdown of skin; L97.211 Non-pressure chronic ulcer of right calf limited to breakdown of skin; E11.51 Type 2 diabetes mellitus with diabetic peripheral angiopathy without gangrene; D63.1 Anemia in chronic kidney disease; E11.40 Type 2 diabetes mellitus with diabetic neuropathy, unspecified; I10 Essential (primary) hypertension; I89.0 Lymphedema, not elsewhere classified; I96 Gangrene, not elsewhere classified | CPT/HCPCS: 29581; A6207; A6253; G0463 ==

== ENCOUNTER → 2022-02-17 | Outpatient (CLI) | payer MEDICARE, OTHER | LOC: WOUNDCARE 08:40 | PROVIDERS: ATTEND Family Medicine | DX: E11.622 Type 2 diabetes mellitus with other skin ulcer (principal); L97.221 Non-pressure chronic ulcer of left calf limited to breakdown of skin; I89.0 Lymphedema, not elsewhere classified; D50.8 Other iron deficiency anemias; N18.30 Chronic kidney disease, stage 3 unspecified; E66.01 Morbid (severe) obesity due to excess calories; E11.52 Type 2 diabetes mellitus with diabetic peripheral angiopathy with gangrene; I96 Gangrene, not elsewhere classified; Z68.44 Body mass index [BMI] 60.0-69.9, adult | CPT/HCPCS: 29581; G0463; 29580 ==

== ENCOUNTER → 2022-02-23 | Outpatient (CLI) | payer MEDICARE, OTHER | LOC: WOUNDCARE 08:03 | PROVIDERS: ATTEND Family Medicine | DX: I89.0 Lymphedema, not elsewhere classified (principal); E11.622 Type 2 diabetes mellitus with other skin ulcer; E11.52 Type 2 diabetes mellitus with diabetic peripheral angiopathy with gangrene; E11.22 Type 2 diabetes mellitus with diabetic chronic kidney disease; I96 Gangrene, not elsewhere classified; D50.8 Other iron deficiency anemias; N18.30 Chronic kidney disease, stage 3 unspecified | CPT/HCPCS: 99212 ==

== ENCOUNTER → 2022-03-05 | Outpatient (CLI) | payer MEDICARE, OTHER | LOC: CARD 08:06 | PROVIDERS: ATTEND Internal Medicine Cardiovascular Disease | DX: R06.00 Dyspnea, unspecified (principal) | CPT/HCPCS: 93306 ==

== ENCOUNTER → 2022-03-10 | Outpatient (CLI) | payer MEDICARE, OTHER ==
[~2022-03-10] VITALS: Ht 162 cm; Wt 155.0 kg
[~2022-03-10] MED LIST changes: +REGADENOSON 0.4 MG/5 ML SYR (LEXISCAN) IV ONE
[2022-03-10] MEDS: CATHETER FLUSH 10 ML SYR IVP PRN ×2 (08:01→09:37)
[2022-03-10 09:36] VITALS: BP 155/70
--- NOTE | 2022-03-11 15:04 | STRESS TEST ---
DATE OF SERVICE: 03/10/2022 RESTING AND POST REGADENOSON TECHNETIUM-99M TETROFOSMIN SPECT CT IMAGING ORDERING PHYSICIAN: Dr. Calix. PRIMARY PHYSICIAN: Dr. Lezama. CLINICAL DIAGNOSIS: Shortness of breath. Baseline images were carried out after injection of 10.55 mCi of technetium-99m Tetrofosmin. This was followed by 0.4 mg regadenoson and 28.4 mCi of technetium-99m Tetrofosmin for stress imaging. The electrocardiogram showed sinus rhythm at baseline. It did not change significantly with the regadenoson infusion. The patient did not report symptoms. This is a technically difficult study because of the patient's body habitus. Review of images shows a patchy tracer uptake. This is seen both at rest and following regadenoson infusion. Corrected images do not exhibit significant defect. Gated images show normal global left ventricular systolic function with normal regional wall motion. Left ventricular ejection fraction is calculated to be 83%. CONCLUSIONS: 1. Technically difficult study. 2. There does not appear to be significant myocardial ischemia or infarction on this study. 3. Normal to hyperdynamic left ventricular systolic function with a calculated ejection fraction of 83%. Job ID: [id number] DocumentID: [id number] Dictated Date: 03/11/2022 09:23:26 [employer] Professor Date: 03/11/2022 15:03:57 Dictated By: SEYMOUR CALIX MD, MA, FACP, FACC,
== END ==
LOC: CARD 08:15
PROVIDERS: ATTEND Internal Medicine Cardiovascular Disease
DX: R06.02 Shortness of breath (principal)
CPT/HCPCS: 78452; 93017; A9502

== ENCOUNTER → 2022-04-22 | Outpatient (CLI) | payer MEDICARE, OTHER ==
[~2022-04-22] MED LIST changes: -REGADENOSON 0.4 MG/5 ML SYR (LEXISCAN) IV ONE
== END ==
LOC: WOUNDCARE 13:12
PROVIDERS: ATTEND Family Medicine
DX: E11.622 Type 2 diabetes mellitus with other skin ulcer (principal); L97.212 Non-pressure chronic ulcer of right calf with fat layer exposed; L92.2 Granuloma faciale [eosinophilic granuloma of skin]; I89.0 Lymphedema, not elsewhere classified; E66.01 Morbid (severe) obesity due to excess calories; D50.9 Iron deficiency anemia, unspecified; I87.333 Chronic venous hypertension (idiopathic) with ulcer and inflammation of bilateral lower extremity; Z68.44 Body mass index [BMI] 60.0-69.9, adult
CPT/HCPCS: 29581; A6253; G0463

== ENCOUNTER → 2022-04-22 | Outpatient (CLI) | payer MEDICARE, OTHER ==
[~2022-04-22] VITALS: Wt 155.0 kg
[2022-04-22 10:30] VITALS: BP 138/48
== END ==
LOC: SDC 10:20
PROVIDERS: ATTEND Nurse Practitioner Family
DX: Z45.2 Encounter for adjustment and management of vascular access device (principal)
CPT/HCPCS: 96523

== ENCOUNTER → 2022-04-29 | Outpatient (CLI) | payer MEDICARE, OTHER | LOC: WOUNDCARE 08:46 | PROVIDERS: ATTEND Family Medicine | DX: I89.0 Lymphedema, not elsewhere classified (principal); L97.212 Non-pressure chronic ulcer of right calf with fat layer exposed; L97.222 Non-pressure chronic ulcer of left calf with fat layer exposed; E11.622 Type 2 diabetes mellitus with other skin ulcer; E11.52 Type 2 diabetes mellitus with diabetic peripheral angiopathy with gangrene; I96 Gangrene, not elsewhere classified; D50.9 Iron deficiency anemia, unspecified; I87.333 Chronic venous hypertension (idiopathic) with ulcer and inflammation of bilateral lower extremity; E66.01 Morbid (severe) obesity due to excess calories; Z68.44 Body mass index [BMI] 60.0-69.9, adult | CPT/HCPCS: 29581; A6253; G0463 ==

== ENCOUNTER → 2022-05-06 | Outpatient (CLI) | payer MEDICARE, OTHER | LOC: WOUNDCARE 09:00 | PROVIDERS: ATTEND Family Medicine | DX: I89.0 Lymphedema, not elsewhere classified (principal); E11.622 Type 2 diabetes mellitus with other skin ulcer; D50.9 Iron deficiency anemia, unspecified; I87.333 Chronic venous hypertension (idiopathic) with ulcer and inflammation of bilateral lower extremity; D46.4 Refractory anemia, unspecified; E66.01 Morbid (severe) obesity due to excess calories; Z68.44 Body mass index [BMI] 60.0-69.9, adult | CPT/HCPCS: 29581; G0463 ==

== ENCOUNTER → 2022-05-13 | Outpatient (CLI) | payer MEDICARE, OTHER | LOC: WOUNDCARE 08:55 | PROVIDERS: ATTEND Family Medicine | DX: I87.333 Chronic venous hypertension (idiopathic) with ulcer and inflammation of bilateral lower extremity (principal); I89.0 Lymphedema, not elsewhere classified; E66.01 Morbid (severe) obesity due to excess calories; E11.621 Type 2 diabetes mellitus with foot ulcer; D50.9 Iron deficiency anemia, unspecified; D46.4 Refractory anemia, unspecified | CPT/HCPCS: 99212 ==

== ENCOUNTER → 2022-06-04 | Outpatient (CLI) | payer MEDICARE, OTHER | LOC: WOUNDCARE 13:15 | PROVIDERS: ATTEND Family Medicine | DX: I89.0 Lymphedema, not elsewhere classified (principal); L97.222 Non-pressure chronic ulcer of left calf with fat layer exposed; E66.01 Morbid (severe) obesity due to excess calories; E11.52 Type 2 diabetes mellitus with diabetic peripheral angiopathy with gangrene; I96 Gangrene, not elsewhere classified; E11.622 Type 2 diabetes mellitus with other skin ulcer; D50.9 Iron deficiency anemia, unspecified; D46.4 Refractory anemia, unspecified; B37.2 Candidiasis of skin and nail; L03.116 Cellulitis of left lower limb; I87.332 Chronic venous hypertension (idiopathic) with ulcer and inflammation of left lower extremity; Z68.44 Body mass index [BMI] 60.0-69.9, adult | CPT/HCPCS: 11042; A6253; G0463 ==

== ENCOUNTER → 2022-06-09 | Outpatient (CLI) | payer MEDICARE, OTHER | LOC: WOUNDCARE 08:22 | PROVIDERS: ATTEND Family Medicine | DX: I89.0 Lymphedema, not elsewhere classified (principal); E66.01 Morbid (severe) obesity due to excess calories; E11.622 Type 2 diabetes mellitus with other skin ulcer; D50.9 Iron deficiency anemia, unspecified; D46.4 Refractory anemia, unspecified; L97.222 Non-pressure chronic ulcer of left calf with fat layer exposed; I87.332 Chronic venous hypertension (idiopathic) with ulcer and inflammation of left lower extremity | CPT/HCPCS: 29581; G0463 ==

== ENCOUNTER → 2022-06-16 | Outpatient (CLI) | payer MEDICARE, OTHER | LOC: WOUNDCARE 08:20 | PROVIDERS: ATTEND Family Medicine | DX: Z53.9 Procedure and treatment not carried out, unspecified reason (principal) | CPT/HCPCS: 99212 ==

== ENCOUNTER → 2022-06-24 | Outpatient (CLI) | payer MEDICARE, OTHER ==
[~2022-06-24] VITALS: Wt 155.0 kg
[2022-06-24 08:50] VITALS: BP 141/51
== END ==
LOC: SDC 08:39
PROVIDERS: ATTEND Nurse Practitioner Family
DX: Z45.2 Encounter for adjustment and management of vascular access device (principal)
CPT/HCPCS: 96523

== ENCOUNTER → 2022-08-10 | Outpatient (CLI) | payer MEDICARE, OTHER ==
[2022-08-12 11:29] LABS: BASOPHILS % (AUTO) 1 % (0-10); EOSINOPHILS % (AUTO) 3 % (0-10); HEMATOCRIT 25 % (35-52); HEMOGLOBIN 7.4 g/dL (11.5-16.0); LYMPHOCYTES % (AUTO) 14 % (12-44); MEAN CORPUSCULAR HEMOGLOBIN 28 pg (25-34); MEAN CORPUSCULAR HGB CONC 29 g/dL (32-36); MEAN CORPUSCULAR VOLUME 96 fL (80-99); MEAN PLATELET VOLUME 10.2 fL (9.0-12.2); MONOCYTES % (AUTO) 7 % (0-12); NEUTROPHILS # (AUTO) 6.6 X 10^3 (1.8-7.8); NEUTROPHILS % (AUTO) 75 % (42-75); PLATELET COUNT 205 10^3/uL (130-400); WHITE BLOOD COUNT 8.7 10^3/uL (4.3-11.0)
[2022-08-12 11:30] LABS: BASOPHILS # (AUTO) 0.1 10^3/uL (0.0-0.1); EOSINOPHILS # (AUTO) 0.2 10^3/uL (0.0-0.3); LYMPHOCYTES # (AUTO) 1.3 X 10^3 (1.0-4.0); MONOCYTES # (AUTO) 0.6 X 10^3 (0.0-1.0)
== END ==
LOC: LABNPT 09:30
PROVIDERS: ATTEND Family Medicine
DX: Z01.89 Encounter for other specified special examinations (principal)
CPT/HCPCS: 82728; 83540; 83550; 85025

== ENCOUNTER → 2022-08-10 | Outpatient (CLI) | payer MEDICARE, OTHER ==
[2022-08-10 09:50] LABS: BASOPHILS # (AUTO) 0.1 10^3/uL (0.0-0.1); BASOPHILS % (AUTO) 1 % (0-10); EOSINOPHILS # (AUTO) 0.2 10^3/uL (0.0-0.3); EOSINOPHILS % (AUTO) 3 % (0-10); HEMATOCRIT 25 % (35-52); HEMOGLOBIN 7.4 g/dL (11.5-16.0); LYMPHOCYTES # (AUTO) 1.3 10^3/uL (1.0-4.0); LYMPHOCYTES % (AUTO) 14 % (12-44); MEAN CORPUSCULAR HEMOGLOBIN 28 pg (25-34); MEAN CORPUSCULAR HGB CONC 29 g/dL (32-36); MEAN CORPUSCULAR VOLUME 96 fL (80-99); MEAN PLATELET VOLUME 10.2 fL (9.0-12.2); MONOCYTES # (AUTO) 0.6 10^3/uL (0.0-1.0); MONOCYTES % (AUTO) 7 % (0-12); NEUTROPHILS # (AUTO) 6.6 10^3/uL (1.8-7.8); NEUTROPHILS % (AUTO) 75 % (42-75); PLATELET COUNT 205 10^3/uL (130-400); WHITE BLOOD COUNT 8.7 10^3/uL (4.3-11.0)
[2022-08-10 10:04] LABS: ALANINE AMINOTRANSFERASE < 6 U/L (0-55); ALBUMIN 3.9 GM/DL (3.2-4.5); ALKALINE PHOSPHATASE 66 U/L (40-136); BILIRUBIN,TOTAL 0.2 MG/DL (0.1-1.0); BUN/CREATININE RATIO 14; CALCIUM 9.2 MG/DL (8.5-10.1); CARBON DIOXIDE 16 MMOL/L (21-32); CHLORIDE 113 MMOL/L (98-107); CREATININE SERUM 1.29 MG/DL (0.60-1.30); GFR ESTIMATED 45; GLUCOSE 111 MG/DL (70-105); POTASSIUM 4.8 MMOL/L (3.6-5.0); SODIUM 140 MMOL/L (135-145); TOTAL PROTEIN 8.1 GM/DL (6.4-8.2)
== END ==
LOC: WOUNDCARE 08:33
PROVIDERS: ATTEND Family Medicine
DX: L97.212 Non-pressure chronic ulcer of right calf with fat layer exposed (principal); I89.0 Lymphedema, not elsewhere classified; E11.622 Type 2 diabetes mellitus with other skin ulcer; E66.01 Morbid (severe) obesity due to excess calories; D46.4 Refractory anemia, unspecified; E11.22 Type 2 diabetes mellitus with diabetic chronic kidney disease; N18.30 Chronic kidney disease, stage 3 unspecified; G90.09 Other idiopathic peripheral autonomic neuropathy; I12.9 Hypertensive chronic kidney disease with stage 1 through stage 4 chronic kidney disease, or unspecified chronic kidney disease; T78.8XXA Other adverse effects, not elsewhere classified, initial encounter
CPT/HCPCS: 11042; 80053; 82607; 82728; 82746; 83036; 83540; 83550; 85025; A6197; G0463; 36415

== ENCOUNTER → 2022-08-17 | Outpatient (CLI) | payer MEDICARE, OTHER | LOC: WOUNDCARE 08:07 | PROVIDERS: ATTEND Family Medicine | DX: I89.0 Lymphedema, not elsewhere classified (principal); I96 Gangrene, not elsewhere classified; E11.622 Type 2 diabetes mellitus with other skin ulcer; E11.22 Type 2 diabetes mellitus with diabetic chronic kidney disease; E11.52 Type 2 diabetes mellitus with diabetic peripheral angiopathy with gangrene; D46.4 Refractory anemia, unspecified; I12.9 Hypertensive chronic kidney disease with stage 1 through stage 4 chronic kidney disease, or unspecified chronic kidney disease; N18.30 Chronic kidney disease, stage 3 unspecified; L97.212 Non-pressure chronic ulcer of right calf with fat layer exposed; G90.09 Other idiopathic peripheral autonomic neuropathy; T78.8XXA Other adverse effects, not elsewhere classified, initial encounter; Z68.44 Body mass index [BMI] 60.0-69.9, adult | CPT/HCPCS: 11042; G0463 ==

== ENCOUNTER → 2022-08-24 | Outpatient (CLI) | payer MEDICARE, OTHER | LOC: WOUNDCARE 08:05 | PROVIDERS: ATTEND Family Medicine | DX: I89.0 Lymphedema, not elsewhere classified (principal); E11.622 Type 2 diabetes mellitus with other skin ulcer; I12.9 Hypertensive chronic kidney disease with stage 1 through stage 4 chronic kidney disease, or unspecified chronic kidney disease; E11.22 Type 2 diabetes mellitus with diabetic chronic kidney disease; N18.30 Chronic kidney disease, stage 3 unspecified; D46.4 Refractory anemia, unspecified; G90.09 Other idiopathic peripheral autonomic neuropathy; E66.01 Morbid (severe) obesity due to excess calories; Z68.44 Body mass index [BMI] 60.0-69.9, adult | CPT/HCPCS: 99212 ==

== ENCOUNTER 2022-08-31 08:26 | Outpatient (RCR) | payer MEDICARE, OTHER ==
[2022-08-24 08:40] VITALS: BP 156/61
[2022-08-24] MEDS: FERRIC CARBOXYMALTOSE INJ 750 MG in NS (IVPB) 250 ML IV SCH (09:35)
[2022-08-31 08:45] VITALS: BP 166/64
[2022-08-31] MEDS: FERRIC CARBOXYMALTOSE INJ 750 MG in NS (IVPB) 250 ML IV SCH (09:06)
== END 2022-09-19 | disposition home or self-care (01) ==
LOC: SDC 08:26
PROVIDERS: ATTEND Family Medicine
DX: D50.8 Other iron deficiency anemias (principal)
CPT/HCPCS: 96365

== ENCOUNTER 2022-12-11 12:52 | Inpatient (IN) | payer MEDICARE, OTHER ==
[~2022-12-11] VITALS: Ht 162 cm; Wt 158.8 kg
--- NOTE | 2022-12-11 14:11 | ED General ---
General Chief Complaint: General Problems/Pain Stated Complaint: CHEST CONGESTION | BILAT FOOT PAIN Nursing Triage Note: PT TO TRIAGE PER W/C PT CO OF CONGESTION FOR APPROX 3 WEEKS, PAIN IN LOWER EXT BILAT 05/30. PT HAS NOT BEEN GETTING OUT OF RECLINER SINCE WEDNESDAY EVENING. PT HAS NOT BEEN GETTING UP TO EAT,DRINK OR USE BATHROOM. PT HAS 2 OPEN WOUNDS, ONE ON COCCYX AND ONE ON LOWER EXT. PT HAS LYMPHADEMA OF LOWER EXT. PT HAS TAKEN 12 ALIEVE ALREADY TODAY FOR LEG PAIN Source of Information: Patient History of Present Illness Date Seen by Provider: Dec 11, 2022 Time Seen by Provider: 13:55 Initial Comments Patient is a 72-year-old female who presents to the emergency room with her daughter chief complaint congestion, cough for about 3 weeks, lower extremity pain in her feet that is severe and "sores on my butt". Patient is a diabetic but states that she has good control of her diabetes her hemoglobin A1c is 5. She states due to her congestion and cough and the pain in her feet however she has been relatively immobile for the last several days. Her daughter does come over to the house to help her. She states the cough is occasionally productive of clear yellow sputum. No fevers or chills. She states she has been taking massive amounts of Aleve for the pain in her feet 12 today and in the past 24 during the day. ("whatever will take care of the pain") She is morbidly obese. History of hypertension. No heart disease no history of kidney disease. She does suffer from chronic lymphedema but does not attend the lymphedema lymphedema/wound care clinic anymore. She describes the pain in her feet as a on fire/burning sensation. this pain has intensified this week whereas normally she states it has never lasted this long. Timing/Duration: 1 Week Severity: Severe (burning) Associated Systoms: Weakness Allergies and Home Medications Allergies Coded Allergies: No Known Drug Allergies (Verified , 09/12/07) Patient Home Medication List Home Medication List Reviewed: Yes Amlodipine Besylate (Amlodipine Besylate) 5 Mg Tablet, 7.5 MG PO HS, (Reported) Entered as Reported by: AGUILA MACK on 10/20/17913 Ascorbate Calcium (Vitamin C) 500 Mg Tablet, 500 MG PO DAILY, (Reported) Entered as Reported by: AGUILA MCAK on 10/20/17913 Aspirin (Aspirin EC) 81 Mg Tablet.dr, 81 MG PO DAILY, (Reported) Entered as Reported by: AGUILA MACK on 10/20/17913 Cholecalciferol (Vitamin D3) (Vitamin D) 1,000 Unit Tablet, 1,000 UNIT PO DAILY, (Reported) Entered as Reported by: AGUILA MACK on 10/20/17913 Cyanocobalamin (Vitamin B-12) (Vitamin B-12) 2,000 Mcg Tablet.er, 2,000 MCG PO DAILY, (Reported) Entered as Reported by: AGUILA MACK on 10/20/17913 Estradiol (Estradiol Tablet) 1 Mg Tablet, 1 MG PO DAILY, (Reported) Entered as Reported by: AGUILA MACK on 10/20/17913 Lisinopril (Lisinopril) 40 Mg Tablet, 40 MG PO DAILY, (Reported) Entered as Reported by: AGUILA MACK on 10/20/17913 Metformin HCl (Metformin HCl) 1,000 Mg Tablet, 1,000 MG PO BID, (Reported) Entered as Reported by: AGUILA MACK on 10/20/17913 [place]-3/Dha/Epa/Fish Oil ([place]-3 Fish Oil 1,000 mg Sfgl) 1,000 Mg Capsule, 2,000 MG PO DAILY, (Reported) Entered as Reported by: AGUILA MACK on 10/20/17913 [place]-3/Dha/Epa/Fish Oil ([place]-3 Fish Oil 1,000 mg Sfgl) 1,000 Mg Capsule, 1,000 MG PO HS, (Reported) Entered as Reported by: AGUILA MACK on 10/20/17913 Pioglitazone HCl (Pioglitazone HCl) 30 Mg Tablet, 30 MG PO DAILY, (Reported) Entered as Reported by: AGUILA MACK on 10/20/17913 Pravastatin Sodium (Pravastatin Sodium) 40 Mg Tablet, 40 MG PO DAILY, (Reported) Entered as Reported by: AGUILA MACK on 10/20/17913 Review of Systems Review of Systems Constitutional: see HPI EENTM: no symptoms reported Respiratory: cough, phlegm Cardiovascular: no symptoms reported Gastrointestinal: no symptoms reported Genitourinary: decreased output Musculoskeletal: joint pain (Bilateral foot pain plantar surface) Skin: other ("Sores" to buttock) Psychiatric/Neurological: No Symptoms Reported All Other Systems Reviewed Negative Unless Noted: Yes Past Klcvldg-Bxkkyj-Rbiphm Hx Patient Social History Tobacco Use?: No Substance use?: No Alcohol Use?: No Pt feels they are or have been: No Immunizations Up To Date Tetanus Booster (TDap): Unknown Influenza Vaccine Up-to-Date: Yes; Up-to-Date First/Initial COVID19 Vaccinat: YES Second COVID19 Vaccination Tomás: YES Past Medical History Surgery/Hospitalization HX: LYMPHADEMA, HTN, DIABETES, HYST, INFUSAPORT, IRON DEF ANEMIA, BILATERAL FOOT SURG. CATERACTS DAVE Physical Exam Vital Signs Vital Signs - First Documented 12/11/22 13:25 Temp 36.5 Pulse 90 Resp 16 B/P (MAP) 136/79 (98) Pulse Ox 100 Capillary Refill : Less Than 3 Seconds Height, Weight, BMI Height: 5'6.00" Weight: 285lbs. 0.0oz. [id number]; 57.00 BMI Method: General Appearance: No Apparent Distress, WD/WN, Obese, Other (Pleasant smiling interactive, no acute distress) Eyes: Bilateral Eye Normal Inspection, Bilateral Eye PERRL, Bilateral Eye EOMI HEENT: PERRL/EOMI, TMs Normal, Pharynx Normal, Moist Mucous Membranes Neck: Normal Inspection Respiratory: Lungs Clear, Normal Breath Sounds, No Accessory Muscle Use, No Respiratory Distress Cardiovascular: Regular Rate, Rhythm, Normal Peripheral Pulses, Systolic Murmur (? 3/6 maik lusb) Gastrointestinal: Non Tender, Soft Genital/Rectal: Other (Shallow ulcerations noted upper third of the bilateral buttocks no surrounding) Back: Normal Inspection Extremity: No Calf Tenderness, Other (Severe lymphedema bilateral lower extremities, no open wounds on the feet) Neurologic/Psychiatric: Alert, Oriented x3, No Motor/Sensory Deficits, Normal Mood/Affect Skin: Warm/Dry, Pallor (Slight), Other (In all skin folds the patient has extensive candidal dermatitis especially under the breasts, under the pannus in the folds of the lower extremities) Progress/Results/Core Measures Suspected Sepsis SIRS Temperature: Pulse: 90 Respiratory Rate: 16 Laboratory Tests 12/11/22 14:18: White Blood Count 13.2H Blood Pressure 136 /79 Mean: 98 Laboratory Tests 12/11/22 14:18: Creatinine 4.31H, Platelet Count 197, Total Bilirubin 0.2 Results/Orders Lab Results Laboratory Tests Test 12/11/22 14:18 12/11/22 14:30 Range/Units White Blood Count 13.2 H 4.3-11.0 10^3/uL Red Blood Count 2.31 L 3.80-5.11 10^6/uL Hemoglobin 6.8 *L 11.5-16.0 g/dL Hematocrit 23 L 35-52 % Mean Corpuscular Volume 101 H 80-99 fL Mean Corpuscular Hemoglobin 29 25-34 pg Mean Corpuscular Hemoglobin Concent 29 L 32-36 g/dL Red Cell Distribution Width 16.2 H 10.0-14.5 % Platelet Count 197 130-400 10^3/uL Mean Platelet Volume 10.4 9.0-12.2 fL Immature Granulocyte % (Auto) 1 % Neutrophils (%) (Auto) 80 H 42-75 % Lymphocytes (%) (Auto) 8 L 12-44 % Monocytes (%) (Auto) 9 0-12 % Eosinophils (%) (Auto) 2 0-10 % Basophils (%) (Auto) 0 0-10 % Neutrophils # (Auto) 10.6 H 1.8-7.8 10^3/uL Lymphocytes # (Auto) 1.0 1.0-4.0 10^3/uL Monocytes # (Auto) 1.1 H 0.0-1.0 10^3/uL Eosinophils # (Auto) 0.3 0.0-0.3 10^3/uL Basophils # (Auto) 0.0 0.0-0.1 10^3/uL Immature Granulocyte # (Auto) 0.1 0.0-0.1 10^3/uL Neutrophils % (Manual) 80 % Lymphocytes % (Manual) 11 % Monocytes % (Manual) 5 % Eosinophils % (Manual) 1 % Band Neutrophils 3 % Polychromasia SLIGHT Macrocytosis SLIGHT Sodium Level 137 135-145 MMOL/L Potassium Level 5.4 H 3.6-5.0 MMOL/L Chloride Level 117 H 98-107 MMOL/L Carbon Dioxide Level 11 L 21-32 MMOL/L Anion Gap 9 5-14 MMOL/L Blood Urea Nitrogen 64 H 7-18 MG/DL Creatinine 4.31 H 0.60-1.30 MG/DL Estimat Glomerular Filtration Rate 10 BUN/Creatinine Ratio 15 Glucose Level 100 70-105 MG/DL Calcium Level 8.7 8.5-10.1 MG/DL Phosphorus Level 4.7 2.3-4.7 MG/DL Total Bilirubin 0.2 0.1-1.0 MG/DL Direct Bilirubin 0.1 0.0-0.3 MG/DL Indirect Bilirubin 0.1 MG/DL Aspartate Amino Transf (AST/SGOT) 14 5-34 U/L Alanine Aminotransferase (ALT/SGPT) 9 0-55 U/L Alkaline Phosphatase 60 40-136 U/L Total Protein 7.3 6.4-8.2 GM/DL Albumin 3.5 3.2-4.5 GM/DL Urine Color YELLOW Urine Clarity CLOUDY Urine pH 5.5 5-9 Urine Specific [place] 1.025 H 1.016-1.022 Urine Protein 3+ H NEGATIVE Urine Glucose (UA) NEGATIVE NEGATIVE Urine Ketones NEGATIVE NEGATIVE Urine Nitrite NEGATIVE NEGATIVE Urine Bilirubin NEGATIVE NEGATIVE Urine Urobilinogen 0.2 < = 1.0 MG/DL Urine Leukocyte Esterase 3+ H NEGATIVE Urine RBC (Auto) 3+ H NEGATIVE Urine RBC >100 H /HPF Urine WBC >100 H /HPF Urine Crystals NONE /LPF Urine Bacteria LARGE H /HPF Urine Casts NONE /LPF Urine Mucus NEGATIVE /LPF Urine Culture Indicated YES Micro Results Microbiology 12/11/22 Urine Culture - Preliminary, Resulted Probable E.coli My Orders Orders - NICKY MOSES MD Ed Iv/Invasive Line Start (12/11/22 14:05) Cbc With Automated Diff (12/11/22 14:05) Basic Metabolic Panel (12/11/22 14:05) Ua Culture If Indicated (12/11/22 14:05) Manual Differential (12/11/22 14:18) Urine Culture (12/11/22 14:30) Liver Panel (12/11/22 15:46) Phosphorus (12/11/22 15:46) Ceftriaxone 1 Gm Pre-Mix (Rocephin 1 Gm (12/11/22 16:00) Catheter(Urinary) Insert & Ass 03,15 (12/11/22 15:46) Lidocaine 2% (Urojet) (Xylocaine Urojet) (12/11/22 16:00) Pantoprazole Injection (Protonix Injecti (12/11/22 16:00) Red Cells Leukocytes Reduced (12/11/22 15:52) Type And Screen (12/11/22 15:52) Vital Signs/I&O 12/11/22 12/11/22 13:25 16:43 Temp 36.5 Pulse 90 89 Resp 16 22 B/P (MAP) 136/79 (98) 114/81 Pulse Ox 100 98 12/12/22 00:00 Intake Total 50 ml Balance 50 ml Capillary Refill : Less Than 3 Seconds Blood Pressure Mean: 98 Progress Note : Time: 15:40 Progress Note Patient seen and examined by me, evaluation today includes physical exam, CBC, basic metabolic panel and urinalysis. Physical exam pertinent for morbidly obese female awake, pleasant alert conversant in no acute distress. Vital signs are stable. Not requiring supplemental oxygen. Patient's primary complaint is foot pain, decreased urine output generalized weakness. Using large amounts of Aleve for foot pain. She has diffuse candidal dermatitis in skin folds. Soft abdomen, clear lungs although somewhat diminished secondary to obesity. Heart is regular. No focal neurologic deficits. Was able to spontaneously void for us. Differential diagnosis based on history and physical examination neuropathy, acute kidney injury secondary to NSAID use, UTI/sepsis Labs reviewed, CBC shows elevated white blood cell count at 13.2. Hemoglobin 6.8, platelets 197. Basic metabolic panel shows sodium of 137, potassium of 5.4, chloride 117, CO2 of 11, BUN of 64, creatinine of 4.3 which is significantly off of her prior baseline. Serum glucose is 100. Urinalysis shows 3+ protein with greater than 100 whites and reds and large bacteria. Bárbara rodríguez was treated in the emergency room with normal saline as well as Rocephin 1 g IV for urinary tract infection. Pichardo catheter was placed due to acute kidney injury/renal failure. I have discussed findings and plan of care for admission with the patient and family letting them know that the patient was in acute renal failure and might possibly be transferred to a facility with nephrology services. Daughter was very tearful at this information. I discussed the case with Dr. Alexia Neil on for the hospitalist service who recommended adding phosphorus level, liver functions. Was agreeable with transfusion and hydration overnight to see if we could improve her renal function at all. Patient will be admitted to the medical floor. Patient has no concerning findings for sepsis at this time. She is not tachycardic, hypotensive, altered. Suspect she does have some degree of neuropathy secondary to her obesity. Antibiotics for her urinary tract infection. Counseling on NSAID use. Departure Communication (Admissions) Time/Spoke to Admitting Phy: 15:[address] Neil - admit IP cardiac stepdown Impression Primary Impression: Acute renal failure Qualified Codes: N17.9 - Acute kidney failure, unspecified Additional Impressions: Adverse effect of other nonsteroidal anti-inflammatory drugs [NSAID], initial encounter Anemia Qualified Codes: D64.9 - Anemia, unspecified Candidal dermatitis Disposition: ADMITTED INPATIENT Condition: Stable Admissions Decision to Admit Reason: Admit from ER (General) Decision to Admit/Date: Dec 11, 2022 Time/Decision to Admit Time: 15:47 Departure-Patient Inst. Referrals: MANE CUNNINGHAM MD (PCP/Family) Primary Care Physician Copy Copies To 1: MANE CUNNINGHAM MD, KATHRYN M MD Dec 11, 2022 14:11
[2022-12-11 14:25] LABS: BASOPHILS % (AUTO) 0 % (0-10); EOSINOPHILS # (AUTO) 0.3 10^3/uL (0.0-0.3); EOSINOPHILS % (AUTO) 2 % (0-10); HEMATOCRIT 23 % (35-52); LYMPHOCYTES % (AUTO) 8 % (12-44); MEAN CORPUSCULAR HEMOGLOBIN 29 pg (25-34); MEAN CORPUSCULAR HGB CONC 29 g/dL (32-36); MEAN CORPUSCULAR VOLUME 101 fL (80-99); MEAN PLATELET VOLUME 10.4 fL (9.0-12.2); MONOCYTES # (AUTO) 1.1 10^3/uL (0.0-1.0); MONOCYTES % (AUTO) 9 % (0-12); NEUTROPHILS # (AUTO) 10.6 10^3/uL (1.8-7.8); NEUTROPHILS % (AUTO) 80 % (42-75); PLATELET COUNT 197 10^3/uL (130-400); WHITE BLOOD COUNT 13.2 10^3/uL (4.3-11.0)
[2022-12-11 14:28] LABS: HEMOGLOBIN 6.8 g/dL (11.5-16.0)
[2022-12-11 14:40] LABS: POTASSIUM 5.4 MMOL/L (3.6-5.0)
[2022-12-11 14:41] LABS: CALCIUM 8.7 MG/DL (8.5-10.1)
[2022-12-11 14:45] LABS: CREATININE SERUM 4.31 MG/DL (0.60-1.30)
[2022-12-11 14:49] LABS: BILIRUBIN,URINE NEGATIVE (NEGATIVE); CLARITY,URINE CLOUDY; COLOR,URINE YELLOW; GLUCOSE, URINE (UA) NEGATIVE (NEGATIVE); KETONES,URINE NEGATIVE (NEGATIVE); LEUKOCYTE ESTERASE ,URINE 3+ (NEGATIVE); NITRITE,URINE NEGATIVE (NEGATIVE); PH,URINE 5.5 (5-9); PROTEIN,URINE 3+ (NEGATIVE)
[2022-12-11 14:58] LABS: BAND NEUTROPHILS 3 %; EOSINOPHILS % (MANUAL) 1 %; LYMPHOCYTES % (MANUAL) 11 %; MONOCYTES % (MANUAL) 5 %; NEUTROPHILS % (MANUAL) 80 %; POLYCHROMASIA SLIGHT
[2022-12-11 15:10] LABS: BACTERIA,URINE LARGE /HPF; RBC,URINE >100 /HPF; WBC,URINE >100 /HPF
[2022-12-11 15:55] LABS: ALBUMIN 3.5 GM/DL (3.2-4.5)
[2022-12-11 15:58] LABS: TOTAL PROTEIN 7.3 GM/DL (6.4-8.2)
[2022-12-11 15:59] LABS: BILIRUBIN,TOTAL 0.2 MG/DL (0.1-1.0)
[2022-12-11] MEDS ORDERED: cefTRIAXone 1 GM PRE-MIX 50 ML IV ONE (16:00)
[2022-12-11] MEDS ORDERED: PANTOPRAZOLE 40 MG (PROTONIX) VIAL IV ONE (16:00)
[2022-12-11] MEDS ORDERED: LIDOCAINE UROJET 2% GEL 10 ML PKG TOP ONE (16:00)
[2022-12-11 16:01] LABS: PHOSPHORUS 4.7 MG/DL (2.3-4.7)
[2022-12-11 16:03] LABS: BILIRUBIN,DIRECT 0.1 MG/DL (0.0-0.3); BILIRUBIN,INDIRECT 0.1 MG/DL
[2022-12-11] MEDS ORDERED: metFORMIN 500 MG (GLUCOPHAGE) TAB PO SCH (18:00)
[2022-12-11] MEDS ORDERED: RT-ALBUTEROL SULF 2.5 MG/3 ML PRE-MIX VIAL INH PRN (18:15)
[2022-12-11] MEDS: NS IV 1000 ML 1,000 ML IV SCH ×2 (18:15→23:31)
[2022-12-11 20:00] VITALS: BP 118/57
[2022-12-11] MEDS ORDERED: MILK OF MAGNESIA 400 MG/5 ML 30 ML UDC PO PRN (20:30)
[2022-12-11] MEDS ORDERED: BENZONATATE 100 MG (TESSALON) CAPSULE PO PRN (20:30)
[2022-12-11] MEDS ORDERED: ONDANSETRON 4 MG/2 ML (SDV) Z0FRAN IV PRN (20:30)
[2022-12-11] MEDS ORDERED: ACETAMINOPHEN 325 MG TABLET PO PRN (20:30)
[2022-12-11] MEDS ORDERED: MELATONIN 3 MG TABLET PO PRN (20:30)
[2022-12-11] MEDS ORDERED: ANTACID SUSP 30 ML UDC (MYLANTA) PO PRN (20:30)
[2022-12-11] MEDS ORDERED: amLODIPine 5 MG (NORVASC) TAB PO SCH (21:00)
[2022-12-11 21:06] VITALS: BP 118/54
[2022-12-11 21:21] VITALS: BP 107/54
[2022-12-11 23:02] VITALS: BP 103/51
[2022-12-12] VITALS (9 sets, daily range): BP systolic 96–113; BP diastolic 34–63
[2022-12-12] MEDS ORDERED: NS IV 1000 ML 1,000 ML IV SCH (02:30)
[2022-12-12 04:17] LABS: HEMATOCRIT 21 % (35-52); MEAN CORPUSCULAR HEMOGLOBIN 29 pg (25-34); MEAN CORPUSCULAR HGB CONC 29 g/dL (32-36); MEAN CORPUSCULAR VOLUME 100 fL (80-99); MEAN PLATELET VOLUME 10.2 fL (9.0-12.2); PLATELET COUNT 170 10^3/uL (130-400); WHITE BLOOD COUNT 10.3 10^3/uL (4.3-11.0)
[2022-12-12 04:29] LABS: HEMOGLOBIN 6.3 g/dL (11.5-16.0)
[2022-12-12 04:34] LABS: POTASSIUM 5.4 MMOL/L (3.6-5.0)
[2022-12-12 04:35] LABS: CALCIUM 7.7 MG/DL (8.5-10.1)
[2022-12-12 04:39] LABS: CREATININE SERUM 4.6 MG/DL (0.60-1.30)
[2022-12-12] MEDS ORDERED: NS IV 500 ML 500 ML IV SCH (04:45)
[2022-12-12] MEDS ORDERED: PANTOPRAZOLE 40 MG (PROTONIX) VIAL IV SCH (09:00)
[2022-12-12] MEDS ORDERED: MICONAZOLE 2% POWDER (DESENEX AF) 90 GM TOP SCH (09:00)
[2022-12-12] MEDS ORDERED: lisINopril 20 MG (PRINIVIL) TABLET PO SCH (09:00)
[2022-12-12] MEDS ORDERED: SODIUM POLYSTYRENE POWDER 15 GM BOTTLE PO NR (10:00)
[2022-12-12] MEDS ORDERED: SODIUM BICARBONATE 8.4% SYR 150 MEQ in D5W 1000 ML IV SOLUTION 1,000 ML IV SCH (10:00)
--- NOTE | 2022-12-12 10:31 | Short Stay Summary-Hospitalist ---
History of Present Illness HPI/Chief Complaint Pt is a 72CF with a PMH of HTN, NIDDMII who presented to the ER due to leg pain. She states she has had a cough/cold for 2-3 weeks and this week she developed lower extremity pain. Her daughter brought her a bottle of Aleve to her on her on 11/12 and between then and yesterday afternoon she took 12 tabs. She was found to have an elevated creatinine of 4.3. She was admitted overnight for IVF to see if creatinine would improve. She was mildly hypotensive overnight and urine output was minimal. Potassium has remained 5.4 and she remains acidotic. Discussed plan with her and daughter to attempt transfer for nephrology evaluation. They are in agreement with plan and request Casey. Source: patient Date Seen 12/12/22 Time Seen by a Provider: 08:20 Attending Physician Shraddha Lezama MD PCP Admitting Physician: Alley Neil MD Attending Physician: Alley Neil MD Referring Physician Date of Admission Dec 11, 2022 at 17:02 Home Medications & Allergies Home Medications Reviewed patient Home Medication Reconciliation performed by pharmacy medication reconciliations oscillograph technician and/or nursing. Patients Allergies have been reviewed. Allergies Allergies Coded Allergies No Known Drug Allergies ([id number]/24/07) Past Wpprwop-Ehlaiw-Ctjswa Hx Patient Social History Tobacco Use?: No Use of E-Cig and/or Vaping dev: No Substance use?: No Alcohol Use?: No Pt feels they are or have been: No Immunizations Up To Date Date of Influenza Vaccine: Jun 20, 2022 First/Initial COVID19 Vaccinat: YES Second COVID19 Vaccination Tomás: YES Tetanus Booster (TDap): Unknown Date of Pneumonia Vaccine: Jun 20, 2012 Current Status status: No Advance Directives: No Communicates: Verbally Primary Language: Afghan Preferred Spoken Language: Afghan Is interpretation needed?: No Sensory deficits: Vision impairment Implanted or Applied Medical D: Port-a-cath Review of Systems Constitutional: see HPI Physical Exam Physical Exam Vital Signs Vital Signs - First Documented 12/11/22 12/11/22 12/12/22 13:25 18:49 08:26 Temp 36.5 Pulse 90 Resp 16 B/P (MAP) 136/79 (98) Pulse Ox 100 O2 Delivery Room Air O2 Flow Rate 0.00 Capillary Refill : Less Than 3 Seconds Height, Weight, BMI Height: 5'6.00" Weight: 285lbs. 0.0oz. [id number]; 60.50 BMI Method: General Appearance: No Apparent Distress, WD/WN, Obese, Other (Pleasant smiling interactive, no acute distress) Eyes: Bilateral Eye Normal Inspection, Bilateral Eye PERRL, Bilateral Eye EOMI HEENT: PERRL/EOMI, Moist Mucous Membranes Respiratory: Lungs Clear, No Accessory Muscle Use, No Respiratory Distress Cardiovascular: Regular Rate, Rhythm, Systolic Murmur Gastrointestinal: Normal Bowel Sounds, Non Tender, Soft Genital/Rectal: Other (Shallow ulcerations noted upper third of the bilateral buttocks no surrounding) Back: Normal Inspection Extremity: No Calf Tenderness, Other (Severe bilateral lower extremity lymphedema with skin thickening and peeling) Neurologic/Psychiatric: Alert, Oriented x3, Normal Mood/Affect Skin: Warm/Dry, Pallor (mild) Results Results/Procedures Labs Laboratory Tests 12/11/22 14:18 12/12/22 04:00 Patient resulted labs reviewed. Short Stay Diagnosis Discharge Diagnosis-Short Stay Admission Diagnosis Acute Oligouric Renal Failure Final Discharge Diagnosis Acute Oligouric Renal Failure Conclusion Plan Acute Oligouric Renal Failure Hyperkalemia Adverse effect of NSAIDs Creatine 1.2 in July up to 4.3 on admission Despite 3L of fluid and 2u pRBCs Creatinine up further to 4.6 today UOP minimal overnight Discussed with Dr Palomares at [facility] who accepts for transfer Recommended Bicarb gtt and Kayexelate- ordered Hold metformin and lisinopril Anemia Chronic- baseline 7.4 in July 1 unit given by ER and downto 6.3 with IVF overnight 1 more unit pRBCs ordered UTI No evidence of sepsis Continue IV abx Culture with e coli HTN BP lower side of normal overnight Continue IVF Hold antihypertensives NIDDMII BS well controlled, hold metformin Diagnosis/Problems Diagnosis/Problems (1) Essential (primary) hypertension (2) Debility (3) HLD (hyperlipidemia) (4) Non-insulin dependent type 2 diabetes mellitus (5) Normocytic anemia (6) Obesity (7) UTI (urinary tract infection) (8) Adverse effect of other nonsteroidal anti-inflammatory drugs [NSAID], initial encounter Status: Acute (9) Acute renal failure Status: Acute Qualifiers: Qualified Codes: N17.9 - Acute kidney failure, unspecified (10) Anemia Status: Acute Qualifiers: Qualified Codes: D64.9 - Anemia, unspecified ALLEY NEIL MD Dec 12, 2022 10:31
[2022-12-12] MEDS ORDERED: GABAPENTIN 100 MG (NEURONTIN) CAP PO NR (11:45)
[2022-12-12] MEDS ORDERED: cefTRIAXone 1 GM IV (PRE-MIX) 50 ML IV SCH (16:00)
== END 2022-12-12 17:05 | disposition short-term general hospital (02) | DRG 683 ==
LOC: EDUNIT# 12:52 → ER 12:55 → CSD 17:02
PROVIDERS: ADMIT Family Medicine; ATTEND Family Medicine
DX: N17.9 Acute kidney failure, unspecified (principal); N39.0 Urinary tract infection, site not specified; Z68.43 Body mass index [BMI] 50.0-59.9, adult; E87.5 Hyperkalemia; D64.9 Anemia, unspecified; B96.20 Unspecified Escherichia coli [E. coli] as the cause of diseases classified elsewhere; I10 Essential (primary) hypertension; E11.9 Type 2 diabetes mellitus without complications; T39.395A Adverse effect of other nonsteroidal anti-inflammatory drugs [NSAID], initial encounter; L98.419 Non-pressure chronic ulcer of buttock with unspecified severity; E78.5 Hyperlipidemia, unspecified; R53.81 Other malaise; E66.01 Morbid (severe) obesity due to excess calories; I89.0 Lymphedema, not elsewhere classified; B37.2 Candidiasis of skin and nail; G62.9 Polyneuropathy, unspecified; Z79.84 Long term (current) use of oral hypoglycemic drugs; Z79.899 Other long term (current) drug therapy
CPT/HCPCS: 36415; 51701; 51702; 80048; 80076; 81000; 84100; 85007; 85014; 85018; 85027; 86850; 86900; 86901; 86920; 87077; 87088; 87186; 94760

== ENCOUNTER → 2023-03-18 | Outpatient (CLI) | payer MEDICARE, OTHER ==
[2023-03-18 14:41] LABS: BASOPHILS % (AUTO) 1 % (0-10); EOSINOPHILS # (AUTO) 0.3 10^3/uL (0.0-0.3); EOSINOPHILS % (AUTO) 3 % (0-10); HEMATOCRIT 27 % (35-52); HEMOGLOBIN 8.3 g/dL (11.5-16.0); LYMPHOCYTES # (AUTO) 1.4 10^3/uL (1.0-4.0); LYMPHOCYTES % (AUTO) 18 % (12-44); MEAN CORPUSCULAR HEMOGLOBIN 30 pg (25-34); MEAN CORPUSCULAR HGB CONC 31 g/dL (32-36); MEAN CORPUSCULAR VOLUME 97 fL (80-99); MEAN PLATELET VOLUME 9.6 fL (9.0-12.2); MONOCYTES # (AUTO) 0.6 10^3/uL (0.0-1.0); MONOCYTES % (AUTO) 8 % (0-12); NEUTROPHILS # (AUTO) 5.7 10^3/uL (1.8-7.8); NEUTROPHILS % (AUTO) 71 % (42-75); PLATELET COUNT 210 10^3/uL (130-400)
[2023-03-18 14:53] LABS: ALBUMIN 3.9 GM/DL (3.2-4.5)
[2023-03-18 14:54] LABS: POTASSIUM 4.6 MMOL/L (3.6-5.0)
[2023-03-18 14:55] LABS: CALCIUM 9.5 MG/DL (8.5-10.1)
[2023-03-18 14:56] LABS: TOTAL PROTEIN 8.3 GM/DL (6.4-8.2)
[2023-03-18 14:58] LABS: BILIRUBIN,TOTAL 0.2 MG/DL (0.1-1.0)
[2023-03-18 14:59] LABS: CREATININE SERUM 1.81 MG/DL (0.60-1.30)
== END ==
LOC: WOUNDCARE 12:42
PROVIDERS: ATTEND Family Medicine
DX: L97.212 Non-pressure chronic ulcer of right calf with fat layer exposed (principal); L97.222 Non-pressure chronic ulcer of left calf with fat layer exposed; I89.0 Lymphedema, not elsewhere classified; E11.622 Type 2 diabetes mellitus with other skin ulcer; E66.01 Morbid (severe) obesity due to excess calories; Z68.43 Body mass index [BMI] 50.0-59.9, adult; B37.2 Candidiasis of skin and nail; L03.115 Cellulitis of right lower limb; L03.116 Cellulitis of left lower limb; D46.4 Refractory anemia, unspecified; E11.22 Type 2 diabetes mellitus with diabetic chronic kidney disease; N18.4 Chronic kidney disease, stage 4 (severe)
CPT/HCPCS: 11042; 11045; 80053; 83036; 85025; 87070; 87077; 87186; 87205; A6253; G0463; 36415

== ENCOUNTER → 2023-03-22 | Outpatient (CLI) | payer MEDICARE, OTHER | LOC: WOUNDCARE 07:53 | PROVIDERS: ATTEND Family Medicine | DX: S81.801A Unspecified open wound, right lower leg, initial encounter (principal); I10 Essential (primary) hypertension; E11.40 Type 2 diabetes mellitus with diabetic neuropathy, unspecified; I49.3 Ventricular premature depolarization | CPT/HCPCS: 29581; A6253; G0463 ==

== ENCOUNTER → 2023-03-26 | Outpatient (CLI) | payer MEDICARE, OTHER ==
--- NOTE | 2023-03-26 14:00 | Diagnostic Imaging Report ---
INDICATION: 73-year-old female, peripheral vascular disease. Lower extremity swelling. History of diabetes and hyperlipidemia with hypertension.. TECHNIQUE: Segmental pulse pressures were performed of the upper and lower extremities. FINDINGS: Resting Doppler Blood Pressures RIGHT Brachial: 168 mmHg Ankle (Posterior Tibial): 150 mm Hg Index: 0.89 Ankle (Dorsalis Pedis): 163 mm Hg Index: 0.97 LEFT Brachial: 164 mmHg Ankle (Posterior Tibial): 107 mm Hg Index: 0.93 Ankle (Dorsalis Pedis): 136 mm Hg Index: 0.81 IMPRESSION: Ankle-brachial indices as above. Ankle-Brachial Index Diagnosis/Interpretation <=0.90 Peripheral Arterial Disease 0.91-0.99 Borderline 1.00-1.40 Normal >1.40 Concern for noncompressible arteries, (assoc with Diabetes Mellitus) Dictated by: Dictated on workstation # [id number]
== END ==
LOC: RAD 07:07
PROVIDERS: ATTEND Family Medicine
DX: L97.212 Non-pressure chronic ulcer of right calf with fat layer exposed (principal); L97.222 Non-pressure chronic ulcer of left calf with fat layer exposed; I89.0 Lymphedema, not elsewhere classified; E11.622 Type 2 diabetes mellitus with other skin ulcer; E66.01 Morbid (severe) obesity due to excess calories; Z68.43 Body mass index [BMI] 50.0-59.9, adult; B37.2 Candidiasis of skin and nail; L03.115 Cellulitis of right lower limb; L03.116 Cellulitis of left lower limb; N18.4 Chronic kidney disease, stage 4 (severe); D63.1 Anemia in chronic kidney disease; I73.9 Peripheral vascular disease, unspecified; E78.5 Hyperlipidemia, unspecified
CPT/HCPCS: 93923

== ENCOUNTER → 2023-03-26 | Outpatient (CLI) | payer MEDICARE, OTHER | LOC: WOUNDCARE 08:38 | PROVIDERS: ATTEND Family Medicine | DX: E11.622 Type 2 diabetes mellitus with other skin ulcer (principal); L97.212 Non-pressure chronic ulcer of right calf with fat layer exposed; L97.222 Non-pressure chronic ulcer of left calf with fat layer exposed; I89.0 Lymphedema, not elsewhere classified; E66.01 Morbid (severe) obesity due to excess calories; E11.22 Type 2 diabetes mellitus with diabetic chronic kidney disease; N18.4 Chronic kidney disease, stage 4 (severe); B37.2 Candidiasis of skin and nail; L03.115 Cellulitis of right lower limb; L03.116 Cellulitis of left lower limb; D46.4 Refractory anemia, unspecified; D50.8 Other iron deficiency anemias; B95.61 Methicillin susceptible Staphylococcus aureus infection as the cause of diseases classified elsewhere; Z68.43 Body mass index [BMI] 50.0-59.9, adult | CPT/HCPCS: 29581; G0463 ==

== ENCOUNTER → 2023-04-02 | Outpatient (CLI) | payer MEDICARE, OTHER | LOC: WOUNDCARE 08:01 | PROVIDERS: ATTEND Family Medicine | DX: L97.212 Non-pressure chronic ulcer of right calf with fat layer exposed (principal); L97.222 Non-pressure chronic ulcer of left calf with fat layer exposed; I89.0 Lymphedema, not elsewhere classified; E11.622 Type 2 diabetes mellitus with other skin ulcer; E66.01 Morbid (severe) obesity due to excess calories; Z68.51 Body mass index [BMI] pediatric, less than 5th percentile for age; Z68.43 Body mass index [BMI] 50.0-59.9, adult; D46.4 Refractory anemia, unspecified; E11.22 Type 2 diabetes mellitus with diabetic chronic kidney disease; N18.4 Chronic kidney disease, stage 4 (severe); D50.8 Other iron deficiency anemias; I70.232 Atherosclerosis of native arteries of right leg with ulceration of calf; Y82.8 Other medical devices associated with adverse incidents | CPT/HCPCS: 99212 ==

== ENCOUNTER 2023-05-05 11:03 | Outpatient (RCR) | payer MEDICARE, OTHER ==
[~2023-05-05] VITALS: Ht 162.6 cm; Wt 162.0 kg
[2023-05-05] MEDS ORDERED: IRON SUCROSE 200 MG/10 ML VIAL IV ONE ×2 (11:27→11:45)
[2023-05-05 12:10] VITALS: BP 132/50
== END 2023-05-05 12:10 | disposition home or self-care (01) ==
LOC: SDC 11:03
PROVIDERS: ATTEND Family Medicine
DX: D50.8 Other iron deficiency anemias (principal)
CPT/HCPCS: 96365

== ENCOUNTER 2023-07-28 23:34 | Inpatient (IN) | payer MEDICARE, OTHER ==
[~2023-07-28] VITALS: Ht 162.5 cm; Wt 162.4 kg
--- NOTE | 2023-07-28 23:57 | ED Lower Extremity ---
General Chief Complaint: Lower Extremity Stated Complaint: FOOT PAIN/LEG SWELLING Source: patient, EMS Exam Limitations: no limitations History of Present Illness Date Seen by Provider: Jul 28, 2023 Time Seen by Provider: 23:37 Initial Comments 73-year-old female with history of chronic lymphedema presents emergency department today for leg swelling, pain bilaterally. She states symptoms worse in the last 3 daysbut overall present for about 3 weeks. Notably she did stop her lasix around that time due to increased urination. She has severe difficulty as here obesity makes it hard for her to get around. She has had an increase in swelling and pain, clear drainage bilaterally. She states the last time this happened she was in renal failure wants to be sure that she is not currently in renal failure. She has seen wound care in the past but states "I have not been able to get there." She last saw them in February. She has not been wearing her compression stockings due to increased swelling making it difficult to get them on. All other systems reviewed and negative except documented per HPI. Voice recognition software was used to help create this chart Allergies and Home Medications Allergies Coded Allergies: No Known Drug Allergies (Verified , 09/12/07) Patient Home Medication List Home Medication List Reviewed: Yes Amlodipine Besylate (Amlodipine Besylate) 5 Mg Tablet, 5 MG PO DAILY, (Reported) Entered as Reported by: AGUILA MACK on 10/20/17913 Last Action: Reviewed Ascorbate Calcium (Vitamin C) 500 Mg Tablet, 500 MG PO DAILY, (Reported) Entered as Reported by: AGUILA MACK on 10/20/17913 Last Action: Reviewed Aspirin (Aspirin EC) 81 Mg Tablet.dr, 81 MG PO HS, (Reported) Entered as Reported by: AGUILA MACK on 10/20/17913 Last Action: Reviewed Cholecalciferol (Vitamin D3) (Vitamin D3) 25 Mcg (1000 Unit) Tablet, 25 MCG PO DAILY, (Reported) Entered as Reported by: LINDA MURCIA on 07/29/23 2725 Last Action: Reviewed Cyanocobalamin (Vitamin B-12) (Vitamin B-12) 2,000 Mcg Tablet.er, 2,000 MCG PO DAILY, (Reported) Entered as Reported by: AGUILA MACK on 10/20/17913 Last Action: Reviewed Doxycycline Hyclate (Doxycycline Hyclate) 100 Mg Tablet, 100 MG PO BID@17 Prescribed by: JAYLENE JACKSON on 07/30/231102 Empagliflozin (Jardiance) 10 Mg Tablet, 10 MG PO DAILY, (Reported) Entered as Reported by: LINDA MURCIA on 07/29/231624 Last Action: Reviewed Ferrous Sulfate (Iron) 325 Mg (65 Mg Iron) Tablet, 650 MG PO DAILY, (Reported) Entered as Reported by: LINDA MURCIA on 07/29/231624 Last Action: Reviewed Fluconazole (Fluconazole) 100 Mg Tablet, 100 MG PO DAILY Prescribed by: JAYLENE JACKSON on 07/30/231102 Miconazole Nitrate (Lotrimin AF) 2 % Powder, 1 GM TOP BID Prescribed by: JAYLENE JACKSON on 07/30/231102 [place]-3/Dha/Epa/Fish Oil ([place]-3 Fish Oil 1,000 mg Sfgl) 1,000 Mg Capsule, 2,000 MG PO DAILY, (Reported) Entered as Reported by: AGUILA MACK on 10/20/17913 Last Action: Reviewed [place]-3/Dha/Epa/Fish Oil ([place]-3 Fish Oil 1,000 mg Sfgl) 1,000 Mg Capsule, 1,000 MG PO HS, (Reported) Entered as Reported by: AGUILA MACK on 10/20/17913 Last Action: Reviewed Pioglitazone HCl (Pioglitazone HCl) 45 Mg Tablet, 45 MG PO DAILY, (Reported) Entered as Reported by: LINDA MURCIA on 07/29/231624 Last Action: Reviewed Pravastatin Sodium (Pravastatin Sodium) 40 Mg Tablet, 40 MG PO HS, (Reported) Entered as Reported by: AGUILA MACK on 10/20/17913 Last Action: Reviewed Discontinued Medications Cholecalciferol (Vitamin D3) (Vitamin D) 1,000 Unit Tablet, 1,000 UNIT PO DAILY, (Reported) Discontinued Reason: Prescription changed Entered as Reported by: AGUILA MACK on 10/20/17913 Estradiol (Estradiol Tablet) 1 Mg Tablet, 1 MG PO DAILY, (Reported) Discontinued Reason: No Longer Taking Entered as Reported by: AGUILA MACK on 10/20/17913 Last Action: Discontinued Lisinopril (Lisinopril) 40 Mg Tablet, 40 MG PO DAILY, (Reported) Discontinued Reason: No Longer Taking Entered as Reported by: AGUILA MACK on 10/20/17913 Last Action: Discontinued Metformin HCl (Metformin HCl) 1,000 Mg Tablet, 1,000 MG PO BID, (Reported) Discontinued Reason: No Longer Taking Entered as Reported by: AGUILA MACK on 10/20/17913 Last Action: Discontinued Pioglitazone HCl (Pioglitazone HCl) 30 Mg Tablet, 30 MG PO DAILY, (Reported) Discontinued Reason: Prescription changed Entered as Reported by: AGUILA MACK on 10/20/17913 Review of Systems Constitutional: see HPI Past Ortzltc-Ofxgxy-Ngwssw Hx Patient Social History Tobacco Use?: No Substance use?: No Alcohol Use?: No Immunizations Up To Date Tetanus Booster (TDap): Unknown First/Initial COVID19 Vaccinat: YES Second COVID19 Vaccination Tomás: YES Third COVID19 Vaccination Date: YES Past Medical History Surgery/Hospitalization HX: LYMPHADEMA, HTN, DIABETES, HYST, INFUSAPORT, IRON DEF ANEMIA, BILATERAL FOOT SURG. CATERACTS DAVE Physical Exam Vital Signs Capillary Refill : Height, Weight, BMI Height: 5'6.00" Weight: 285lbs. 0.0oz. [id number]; 60.50 BMI Method: General Appearance: WD/WN, no apparent distress Cardiovascular: regular rate, rhythm, no murmur Respiratory: chest non-tender, lungs clear, normal breath sounds Gastrointestinal: soft, other (Morbidly obese) Legs: bilateral leg other (Lymphedema with clear drainage bilateral lower ex tremities. There is a foul smell emanating from her legs bilaterally. No erythema, induration or purulence.) Neurologic/Psychiatric: alert, oriented x 3 Skin: other (Lymphedema venous stasis changes bilateral lower extremities.) Progress/Results/Core Measures Results/Orders Lab Results My Orders Vital Signs/I&O Critical Care Note Critical Care Total Time (minutes) 60 Departure Communication (Admissions) Patient found to be significantly anemic. Her legs appear to be chronically swollen with lymphedema. There is a foul odor emanating. There is no overt infection however. Ordered 2 units of packed red blood cells to be transfused. Given significant anemia we will need to monitor her in the hospital. She does have elevated creatinine which does appear to be close to her baseline at this time but slightly elevated. Impression Primary Impression: Anemia Qualified Codes: D64.9 - Anemia, unspecified Additional Impression: Lymphedema Disposition: ADMITTED INPATIENT Condition: Stable Admissions Decision to Admit Reason: Admit from ER (General) Departure-Patient Inst. Referrals: MANE CUNNINGHAM MD (PCP/Family) Primary Care Physician Scripts Fluconazole (Fluconazole) 100 Mg Tablet 100 MG PO DAILY for 7 Days, #7 TAB Prov: JAYLENE JACKSON MD 07/30/23 Miconazole Nitrate (Lotrimin AF) 2 % Powder 1 GM TOP BID for 7 Days, #1 EA Prov: JAYLENE JACKSON MD 07/30/23 Doxycycline Hyclate (Doxycycline Hyclate) 100 Mg Tablet 100 MG PO BID@07,17 for 7 Days, #14 TAB Prov: JAYLENE JACKSON MD 07/30/23 FAVIOLA PHAM DO Jul 28, 2023 23:57
[2023-07-29] VITALS (13 sets, daily range): BP systolic 115–161; BP diastolic 60–97
[2023-07-29 00:03] LABS: BASOPHILS % (AUTO) 0 % (0-10); EOSINOPHILS # (AUTO) 0.4 10^3/uL (0.0-0.3); EOSINOPHILS % (AUTO) 4 % (0-10); LYMPHOCYTES # (AUTO) 1.8 10^3/uL (1.0-4.0); LYMPHOCYTES % (AUTO) 19 % (12-44); MEAN CORPUSCULAR HEMOGLOBIN 29 pg (25-34); MEAN CORPUSCULAR HGB CONC 28 g/dL (32-36); MEAN CORPUSCULAR VOLUME 105 fL (80-99); MEAN PLATELET VOLUME 9.3 fL (9.0-12.2); MONOCYTES # (AUTO) 0.8 10^3/uL (0.0-1.0); MONOCYTES % (AUTO) 9 % (0-12); NEUTROPHILS # (AUTO) 6.2 10^3/uL (1.8-7.8); NEUTROPHILS % (AUTO) 67 % (42-75); PLATELET COUNT 246 10^3/uL (130-400); WHITE BLOOD COUNT 9.3 10^3/uL (4.3-11.0)
[2023-07-29 00:14] LABS: ALBUMIN 3.6 GM/DL (3.2-4.5); POTASSIUM 4.4 MMOL/L (3.6-5.0)
[2023-07-29 00:15] LABS: CALCIUM 8.6 MG/DL (8.5-10.1)
[2023-07-29 00:16] LABS: TOTAL PROTEIN 7.6 GM/DL (6.4-8.2)
[2023-07-29 00:17] LABS: HEMATOCRIT 18 % (35-52)
[2023-07-29 00:18] LABS: BILIRUBIN,TOTAL 0.3 MG/DL (0.1-1.0)
[2023-07-29 00:20] LABS: CREATININE SERUM 2.06 MG/DL (0.60-1.30)
[2023-07-29] MEDS ORDERED: FUROSEMIDE INJECTION 40 MG/4 ML VIAL IVP ONE (00:45)
[2023-07-29] MEDS ORDERED: NS IV 500 ML 500 ML IV PRN (01:45)
[2023-07-29] MEDS ORDERED: NS IV 500 ML 500 ML ONE (01:53)
[2023-07-29] MEDS ORDERED: fentaNYL INJECTION 100 MCG/2 ML VIAL IV PRN (02:00)
[2023-07-29] MEDS ORDERED: CATHETER FLUSH 10 ML SYR IVP PRN (02:00)
[2023-07-29] MEDS ORDERED: ONDANSETRON INJECTION 4 MG/2 ML (SDV) IV PRN ×2 (02:00→05:00)
[2023-07-29] MEDS ORDERED: MILK OF MAGNESIA 400 MG/5 ML 30 ML UDC PO PRN (05:00)
[2023-07-29] MEDS ORDERED: ONDANSETRON 4 MG ORAL DISSOLVE TABLET PO PRN (05:00)
[2023-07-29] MEDS ORDERED: BISACODYL 10 MG SUPPOSITORY PR PRN (05:00)
[2023-07-29] MEDS ORDERED: ACETAMINOPHEN 325 MG TABLET PO PRN (05:00)
[2023-07-29] MEDS ORDERED: oxyCODONE IMMEDIATE RELEASE 5 MG TABLET PO PRN (05:00)
[2023-07-29] MEDS ORDERED: MELATONIN 3 MG TABLET PO PRN (05:00)
[2023-07-29] MEDS ORDERED: CALCIUM CARBONATE 500 MG CHEW TABLET PO PRN (05:00)
[2023-07-29] MEDS ORDERED: ANTACID SUSPENSION 30 ML UDC PO PRN (05:00)
[2023-07-29] MEDS ORDERED: diphenhydrAMINE INJ 50 MG/ML VIAL IVP PRN (05:00)
[2023-07-29] MEDS ORDERED: diphenhydrAMINE 25 MG TABLET PO PRN (05:00)
[2023-07-29] MEDS ORDERED: HYDROmorphone INJECTION 2 MG/ML VIAL IV PRN (05:00)
[2023-07-29] MEDS ORDERED: LACTULOSE SYRUP 10GM/15ML 30ML UDC PO PRN (05:00)
[2023-07-29] MEDS: CATHETER FLUSH 10 ML SYR IVP SCH ×3 (05:36→20:15)
--- NOTE | 2023-07-29 09:04 | Physical Therapy Evaluation ---
PT Evaluation-General Medical Diagnosis Admission Date Jul 28, 2023 at 23:36 Medical Diagnosis: Foot pain/Leg swelling Onset Date: Jul 25, 2023 Therapy Diagnosis Therapy Diagnosis: Decreased functional mobility Height/Weight Height (Feet): 5 Height (Inches): 6.00 Weight (Pounds): 285 Weight (Ounces): 0.0 Precautions Precautions/Isolations: Fall Prevention, Standard Precautions Weight Bear Status Right Lower Extremity: Right Full Weight Bearing Left Lower Extremity: Left Full Weight Bearing Referral Physician: Doe Reason for Referral: Evaluation/Treatment Medical History Pertinent Medical History: DM, HTN Additional Medical History LYMPHADEMA, HTN, DIABETES, HYST, INFUSAPORT, IRON DEF ANEMIA, BILATERAL FOOT SURG. CATERACTS DAVE Current History Pt is a 73 y/o female with history of chronic lymphedema that presented to ED on 07/28/23 for leg swelling, pain bilaterally. Pt reports the pain and swelling was getting worse over the last few days. Reviewed History: Yes Social History Home: Single Level Current Living Status: Alone Entry Into Home: Stairs With Railing PT Steps Into Home: 4 PT Steps Inside Home: 1 Prior Prior Level of Function SCALE: Activities may be completed with or without assistive devices. 6-Qmsxoyyror-tgdjfhi completes the activity by him/herself with no assistance from a helper. 5-Set-up or Clean-up Assistance-helper sets up or cleans up; patient completes activity. [place] assists only prior to or following the activity. 4-Supervision or Touching Assistance-helper provides verbal cues and/or t ouching/steadying and/or contact guard assistance as patient completes activity. Assistance may be provided throughout the activity or intermittently. 3-Partial/Moderate Assistance-helper does LESS THAN HALF the effort. [place] lifts, holds or supports trunk or limbs, but provides less than half the effort. 2-Substantial/Maximal Assistance-helper does MORE THAN HALF the effort. [place] lifts or holds trunk or limbs and provides more than half the effort. 1-Qmzezreby-bgikwu does ALL the effort. Patient does none of the effort to complete the activity. Or, the assistance of 2 or more helpers is required for the patient to complete the activity. If activity was not attempted, code reason: 7-Patient Refused. 9-Not Applicable-not attempted and the patient did not perform the activity before the current illness, exacerbation or injury. 10-Not Attempted due to Environmental Limitations-(lack of equipment, weather restraints, etc.). 88-Not Attempted due to Medical Conditions or Safety Concerns. Bed Mobility: 6 Transfers (B,C,W/C): 6 Gait: 6 Stairs: 6 Wheelchair Mobility: 1 Indoor Mobility (Ambulation): Independent Stairs: Independent Prior Devices Use: Manual wheelchair, Mechanical lift No AD in the home; Outside the home, the pt utilized a SPC or w/c for longer distances PT Evaluation-Current Subjective Pt is agreeable to PT. Denies pain. Pain Numeric Pain Scale: 0-No Pain Location: No Pain Reported Pt/Family Goals Safely return home Objective Patient Orientation: Person, Place, Time, Situation ROM/Strength ROM Lower Extremities WFL Strength Lower Extremities B LE MMT = 3+/5 grossly Sensory Vision: Wears Glasses Hearing: Functional Hand Dominance: Right Sensation Right Upper Extremit: Intact Sensation Left Upper Extremity: Intact Sensation Right Lower Extremit: Impaired Sensation Left Lower Extremity: Impaired Transfers Sit to Stand (QC): 4 Chair/Sve-uu-Kzyau Xfer(QC): 4 Gait Does the Patient Walk?: Yes Mode of Locomotion: Both Anticipated Mode of Locomotion: Both Walk 10 feet (QC): 4 Walk 50 ft with 2 Turns(QC): 88 Walk 150 ft (QC): 88 Distance: 20ft Gait Assistive Device: FWW Balance Sitting Static: Normal Sitting Dynamic: Good Standing Static: Fair Standing Dynamic: Fair Treatment PT eval completed. Pt completed sit to stand transfers with SBA. Pt ambulated 20ft with the FWW and SBA/CGA. After treatment session, pt was sitting up in the recliner with call light in reach and all needs met. Assessment/Needs Pt tolerated PT well, with good effort. Rehab Potential: Good PT Long-Term Goals Lodge Officer Goals PT Long-Term Goals Time Frame: Aug 05, 2023 Roll Left & Right (QC): 9 Sit to Lying (QC): 9 Lying-Sitting on Side/Bed(QC): 9 Sit to Stand (QC): 6 Chair/Tnt-og-Ytfxm Xfer(QC): 6 Toilet Transfer (QC): 6 Car Transfer (QC): 6 Does the Patient Walk: Yes Walk 10 feet (QC): 6 Walk 50ft with 2 Turns (QC): 6 1 Step (curb) (QC): 6 4 Steps (QC): 6 PT Plan Problem List Problem List: Activity Tolerance, Functional Strength, Safety, Balance, Gait, Transfer, Bed Mobility, ROM Treatment/Plan Treatment Plan: Continue Plan of Care Treatment Plan: Bed Mobility, Education, Functional Activity Magaly, Functional Strength, Group Therapy, Gait, Safety, Therapeutic Exercise, Transfers Treatment Duration: Aug 05, 2023 Frequency: 5 times per week Estimated Hrs Per Day: .25 hour per day Patient and/or Family Agrees t: Yes Safety Risks/Education Patient Education: Gait Training, Transfer Techniques, Correct Positioning, Safety Issues Teaching Recipient: Patient Teaching Methods: Demonstration, Discussion Response to Teaching: Reinforcement Needed Discharge Recommendations Therapy Discharge Recommendati: Post Acute PT Time Time In: 901 Time Out: 927 DATE: Jul 29, 2023 Total Billed Treatment Time: 26 Total Billed Treatment 26 min [facility] KATE LOPEZ PT Jul 29, 2023 09:04
[2023-07-29] MEDS: SENNOSIDES 8.6 MG TABLET PO SCH ×2 (09:27→20:09)
[2023-07-29] MEDS: DOCUSATE SODIUM 100 MG CAPSULE PO SCH ×2 (09:27→20:09)
--- NOTE | 2023-07-29 11:31 | Occupational Therapy Eval ---
OT Evaluation-General/PLF Medical Diagnosis Admission Date Jul 28, 2023 at 23:36 Medical Diagnosis: Foot pain/Leg swelling Onset Date: Jul 25, 2023 Therapy Diagnosis Therapy Diagnosis: decr self care, weakness, decr func mob Height/Weight Height (Feet): 5 Height (Inches): 6.00 Weight (Pounds): 285 Weight (Ounces): 0.0 Precautions Precautions/Isolations: Fall Prevention, Standard Precautions Referral Physician: Doe Referral Reason: Evaluation/Treatment Medical History Pertinent Medical History: DM, HTN Additional Medical History Chronic lymphedema bilat LEs, anemia. Bilat cataract surgery Current History Leg swelling worse last three days. Concerned that she was in kidney failure. Pending wound care for LEs - said that they will wrap legs Reviewed History: Yes Social History Home: Single Level Current Living Status: Alone Entry Into Home: Stairs With Railing Steps Into Home: 4 Steps Inside Home: 1 ADL-Prior Level of Function SCALE: Activities may be completed with or without assistive devices. 1-Yqhsuetxnt-wqzvezu completes the activity by him/herself with no assistance from a helper. 5-Set-up or Clean-up Assistance-helper sets up or cleans up; patient completes activity. [place] assists only prior to or following the activity. 4-Supervision or Touching Assistance-helper provides verbal cues and/or touching/steadying and/or contact guard assistance as patient completes activity. Assistance may be provided throughout the activity or intermittently. 3-Partial/Moderate Assistance-helper does LESS THAN HALF the effort. [place] lifts, holds or supports trunk or limbs, but provides less than half the effort. 2-Substantial/Maximal Assistance-helper does MORE THAN HALF the effort. [place] lifts or holds trunk or limbs and provides more than half the effort. 3-Ptygllsqx-fuimax does ALL the effort. Patient does none of the effort to complete the activity. Or, the assistance of 2 or more helpers is required for the patient to complete the activity. If activity was not attempted, code reason: 7-Patient Refused. 9-Not Applicable-not attempted and the patient did not perform the activity before the current illness, exacerbation or injury. 10-Not Attempted due to Environmental Limitations-(lack of equipment, weather restraints, etc.). 88-Not Attempted due to Medical Conditions or Safety Concerns. ADL PLOF Comments Pt reported that she is independent in all basic self care skills except can't put on her socks. Shower isn't working so she has been doing sponge baths. Recently stopped driving because she has difficulty getting legs under the steering wheel but can transfer into passenger side. Retired - worked at [employer]. Self Care: Independent Functional Cognition: Independent DME/Equipment: Tub/Shower OT Current Status Subjective Pt seen in room, up in recliner, agreeable to OT. No pain reported. Appearance Alert, cooperative Mental Status/Objective Attachments: Central Line Current Glasses/Contacts: Yes Hearing Aids: No Dentures/Partials: No Hand Dominance: Right Upper Extremity ROM Grossly WFL bilat Upper Extremity Coordination No problems observed Upper Extremity Sensation Pt reported decreased sensation in feet Upper Extremity Strength Grossly 5/5 bilat ADL-Treatment ADL-Current Pt reportedly transferred from bed to recliner with SBA. Washed face, under arms, arms and chest with setup, warm water in basin. Brushed teeth with setup. Brushed hair setup. Pt had redness noted under R arm and breast, reported to RN. Pt has not toileted but she anticipated no problem getting on/off tall toilet with grab bars. Pt left up in recliner, all needs met. Eating (QC): 6 (Pt report) Oral Hygiene (QC): 5 Education OT Patient Education: Purpose of tx/functional activities, Rehab process Teaching Recipient: Patient Teaching Methods: Discussion Response to Teaching: Verbalize Understanding OT Construction Area Manager Goals Construction Area Manager Goals Time Frame: Aug 02, 2023 Eating (QC): 6 Oral Hygiene (QC): 6 Toileting Hygiene (QC): 5 Shower/Bathe Self (QC): 4 Upper Body Dressing (QC): 5 Lower Body Dressing (QC): 4 Additional Goals: 1-Demonstrate ADL Tasks, 2-Verbalize Understanding, 3- ImproveStrength/Magaly 1=Demonstrate adherence to instructed precautions during ADL tasks. 2=Patient will verbalize/demonstrate understanding of assistive devices/modifications for ADL. 3=Patient will improve strength/tolerance for activity to enable patient to perform ADL's. OT Education/Plan Problem List/Assessment Assessment: Decreased Activ Tolerance, Dependent Transfers, Impaired Self-Care Skills Pt would benefit from skilled OT to increase her independence in basic self care and to decrease caregiver burden Discharge Recommendations Plan/Recommendations: Continue POC Treatment Plan/Plan of Care Treatment,Training & Education: Yes Patient would benefit from OT for education, treatment and training to promote independence in ADL's, mobility, safety and/or upper extremity function for ADL's. Plan of Care: ADL Retraining, Functional Mobility, UE Funct Exercise/Act Treatment Duration: Aug 02, 2023 Frequency: 3 times per week (3-5 times) Estimated Hrs Per Day: .25 hour per day Agreement: Yes Rehab Potential: Good Time Start Time: 10:08 Stop Time: 10:41 DATE: Jul 29, 2023 Total Time Billed (hr/min): 43 Billed Treatment Time visit, OT eval low intensity 15 minutes, ADL 28 minutes TREY SMALL OT Jul 29, 2023 11:31
[2023-07-29 12:07] LABS: BASOPHILS % (AUTO) 0 % (0-10); EOSINOPHILS # (AUTO) 0.3 10^3/uL (0.0-0.3); EOSINOPHILS % (AUTO) 3 % (0-10); HEMATOCRIT 23 % (35-52); LYMPHOCYTES # (AUTO) 1.2 10^3/uL (1.0-4.0); LYMPHOCYTES % (AUTO) 12 % (12-44); MEAN CORPUSCULAR HEMOGLOBIN 29 pg (25-34); MEAN CORPUSCULAR HGB CONC 30 g/dL (32-36); MEAN CORPUSCULAR VOLUME 95 fL (80-99); MEAN PLATELET VOLUME 9.1 fL (9.0-12.2); MONOCYTES # (AUTO) 0.8 10^3/uL (0.0-1.0); MONOCYTES % (AUTO) 8 % (0-12); NEUTROPHILS % (AUTO) 77 % (42-75); PLATELET COUNT 250 10^3/uL (130-400); WHITE BLOOD COUNT 10.4 10^3/uL (4.3-11.0)
[2023-07-29 12:14] LABS: HEMOGLOBIN 6.9 g/dL (11.5-16.0)
--- NOTE | 2023-07-29 12:16 | Wound Care Assessment ---
Wound Care Assessment Date Seen by Provider: Jul 29, 2023 Time Seen by Provider: 12:08 Chief Complaint Bilateral LE swelling and pain HPI Glenda Iraheat is a 73yoF with past medical history of lymphedema, HTN, diabetes mellitus type 2, morbid obesity, and chronic anemia presenting with worsening bilateral LE swelling and pain. She noticed the swelling worsen 2-3 weeks ago. Around this time she stopped taking her lasix due to frequent urination and soiling clothes. She has also noted some redness and pain in the popliteal areas. She has had fungal infection of skin folds in the past and tries to wash these daily and keep them dry but has noticed more moisture behind her knees recently. She denies fevers/chills. She has gained significant weight since her past visits. She is still able to ambulate with assistance but this has gotten more difficult. Denies chest pain, shortness of breath, N/V. Past Medical History: Admits Diabetes Type II, Admits Heart Disease; Denies Lupas Smoking Status: Never a Smoker Recreational Drug Use: No Alcohol Use: Denies Use Review of Systems General: No Chills HEENT: No Head Aches Pulmonary: No Dyspnea, No Cough Cardiovascular: No: Chest Pain, Palpitations Gastrointestinal: No: Nausea, Vomiting Neurological: No: Weakness, Confusion Exam Vital Signs Date Time Temp Pulse Resp B/P (MAP) Pulse Ox O2 Delivery O2 Flow Rate FiO2 07/29/23 11:36 36.7 83 16 147/72 (97) 98 Room Air 07/29/23 09:27 0.00 07/29/23 05:14 21 Capillary Refill : Less Than 3 Seconds General Appearance: no apparent distress, obese HEENT: PERRL/EOMI Neck: supple Respiratory: no respiratory distress, no accessory muscle use Gastrointestinal: non tender, soft Extremities: inflammation, pedal edema, swelling, other (Chronic lymphedematous changes bilaterally with dry skin. Popliteal fossa bl red and painful, likely cadidal intertrigo) Neurologic/Psychiatric: alert, oriented x 3 Skin: other (chronic lymphedema BL lower extremities, weeping circumferential. Foul odor) Skin Problem Location: lower extremities Skin Character: drainage, erythema, scales, swelling, thickening, other (lymphorrhea and papillomatosis due to chronic obesity related lymphedema) Results Laboratory Tests 07/28/23 23:45: White Blood Count 9.3, Red Blood Count 1.71L, Hemoglobin 5.0*L, Hematocrit 18*L, Mean Corpuscular Volume 105H, Mean Corpuscular Hemoglobin 29, Mean Corpuscular Hemoglobin Concent 28L, Red Cell Distribution Width 18.7H, Platelet Count 246, Mean Platelet Volume 9.3, Immature Granulocyte % (Auto) 1, Neutrophils (%) (Auto) 67, Lymphocytes (%) (Auto) 19, Monocytes (%) (Auto) 9, Eosinophils (%) (Auto) 4, Basophils (%) (Auto) 0, Neutrophils # (Auto) 6.2, Lymphocytes # (Auto) 1.8, Monocytes # (Auto) 0.8, Eosinophils # (Auto) 0.4H, Basophils # (Auto) 0.0, Immature Granulocyte # (Auto) 0.1, Sodium Level 139, Potassium Level 4.4, Chloride Level 107, Carbon Dioxide Level 20L, Anion Gap 12, Blood Urea Nitrogen 27H, Creatinine 2.06H, Estimat Glomerular Filtration Rate 25, BUN/Creatinine Ratio 13, Glucose Level 132H, Calcium Level 8.6, Corrected Calcium 8.9, Total Bilirubin 0.3, Aspartate Amino Transf (AST/SGOT) 13, Alanine Aminotransferase (ALT/SGPT) 8, Alkaline Phosphatase 66, Total Protein 7.6, Albumin 3.6 07/29/23 12:00: Assessment/Plan/Dx Chronic lymphedema- worsened (likely related to worsening anemia and cessation of diuretics) Candidal Intertrigo Cellulitis HTN HLD T2DM Anemia requiring transfusion Plan 1 and 2- Topical miconazole powder to affected areas, oral difulcan and oral doxycyline due to past cultures of LE wounds. Apply interdry fabric to skin folds. Keep legs open to air with elevation. 3. Per primary team 4. per primary team 5. per primary team 6. per primary team, receiving 2 units of LRRBCs, iron panel and B12 level pending Supervisory-Addendum Brief Verification & Attestation Participated in pt care: history, MDM, physical Personally performed: exam, history, MDM, supervision of care Care discussed with: Medical Student Procedures: n/a Results interpretation: Verified all documentation CASANDRA MILLIGAN Jul 29, 2023 12:16 ARASH BUENO MD Jul 29, 2023 14:29
[2023-07-29 12:17] LABS: RETICULOCYTE % 5.81 % (0.50-2.40)
[2023-07-29 12:20] LABS: POTASSIUM 4.3 MMOL/L (3.6-5.0)
[2023-07-29 12:21] LABS: CALCIUM 8.8 MG/DL (8.5-10.1)
[2023-07-29 12:25] LABS: CREATININE SERUM 2.09 MG/DL (0.60-1.30)
[2023-07-29] MEDS ORDERED: EMPA10TA PO (16:25)
[2023-07-29] MEDS ORDERED: FERR-84 PO (16:25)
[2023-07-29] MEDS ORDERED: PIOG45TA65 PO (16:25)
[2023-07-29] MEDS ORDERED: CHOL10004 PO (16:25)
--- NOTE | 2023-07-29 17:50 | History & Physical-Hospitalist ---
History of Present Illness HPI/Chief Complaint Glenda Iraheta is a 73 year old female with PMH HTN, T2DM, HLD, CKD, lymphedema, decubitus ulcer, super super obesity, who presented with leg pain. She has also been feeling weak. She has been lightheaded upon standing. She has chronic wounds on her legs and sacrum. She follows with wound care. She also has anemia of chronic disease. She has kidney disease and follows with nephrology. Source: patient Exam Limitations: no limitations Date Seen 07/29/23 Time Seen by a Provider: 10:30 Attending Physician Shraddha Lezama MD PCP Admitting Physician: Catarina Azar DO Attending Physician: Jaylene Jackson MD Referring Physician Date of Admission Jul 28, 2023 at 23:36 Home Medications & Allergies Home Medications Reviewed patient Home Medication Reconciliation performed by pharmacy medication reconciliations treatment technician and/or nursing. Patients Allergies have been reviewed. Allergies Allergies Coded Allergies No Known Drug Allergies (Uoverqqe00/24/07) Past Kijeblp-Ftizkx-Pbypzw Hx Patient Social History Tobacco Use?: No Smoking Status: Never a Smoker Substance use?: No Alcohol Use?: No Pt feels they are or have been: No Immunizations Up To Date Date of Influenza Vaccine: Jul 10, 2023 First/Initial COVID19 Vaccinat: YES Second COVID19 Vaccination Tomás: YES Tetanus Booster (TDap): Unknown Date of Pneumonia Vaccine: Jun 20, 2012 Current Status status: No status: No Advance Directives: No Communicates: Verbally Primary Language: Lao Preferred Spoken Language: Lao Is interpretation needed?: No Sensory deficits: Vision impairment Implanted or Applied Medical D: Port-a-cath Family Medical History No Pertinent Family Hx Review of Systems Constitutional: dizziness, weakness Respiratory: no symptoms reported Cardiovascular: no symptoms reported Gastrointestinal: no symptoms reported Physical Exam Physical Exam Vital Signs Vital Signs - First Documented 07/28/23 07/29/23 07/29/23 23:37 05:14 07:24 Temp 36.5 Pulse 99 Resp 20 B/P (MAP) 157/70 (99) Pulse Ox 98 O2 Delivery Room Air O2 Flow Rate 0.00 FiO2 21 Capillary Refill : Less Than 3 Seconds Height, Weight, BMI Height: 5'6.00" Weight: 285lbs. 0.0oz. [age]yo; 61.50 BMI Method: General Appearance: No Apparent Distress, Obese HEENT: PERRL/EOMI, Pharynx Normal Neck: Normal Inspection, Supple Respiratory: No Respiratory Distress, Decreased Breath Sounds Cardiovascular: Regular Rate, Rhythm, No Murmur Gastrointestinal: Normal Bowel Sounds, Non Tender, Soft Extremity: Inflammation, Swelling Neurologic/Psychiatric: Alert, Normal Mood/Affect, Motor Weakness Skin: Other (lymphedema, decubitus ulcer) Results Results/Procedures Labs Laboratory Tests 07/28/23 23:45 07/29/23 12:00 Patient resulted labs reviewed. Assessment/Plan Admission Diagnosis Symptomatic anemia Admission Status: Inpatient Order (span 2 midnights) Reason for Inpatient Admission: Blood transfusion Weakness Assessment and Plan Symptomatic anemia Anemia of chronic disease Chronic kidney disease, stage 4 Hgb 5 on arrival s/p 2 units PRBC Hgb improved to 6.9 Transfuse 1 more unit PRBC Iron, B12, folate labs pending Renal function at baseline, Cr 2 Chronic lymphedema Decubitus ulcer Verito intertrigo Wound care consulted Doxycycline Diflucan Miconazole powder T2DM Sliding scale insulin Super super obesity Debility PT/OT IRU evaluation HTN HLD Resume home meds as able DVT prophylaxis: Lovenox Diagnosis/Problems Diagnosis/Problems (1) Symptomatic anemia (2) Anemia of chronic disease Status: Chronic (3) CKD (chronic kidney disease) stage 4, GFR 15-29 ml/min Status: Chronic (4) Super-super obese Status: Chronic (5) Decubitus ulcer Status: Acute (6) HTN (hypertension) Status: Chronic (7) T2DM (type 2 diabetes mellitus) Status: Chronic Qualifiers: Diabetes mellitus terminal worker insulin use: without terminal worker use (8) Lymphedema Status: Acute (9) HLD (hyperlipidemia) Status: Chronic (10) Debility Status: Acute (11) Candidal intertrigo Status: Acute Clinical Quality Measures DVT/VTE Risk/Contraindication: Contraindications-Pharm: Other *list below* Contraindications-Mechi: Other *list below* Other: severe anemia severe dermatitis of legs JAYLENE JACKSON MD Jul 29, 2023 17:50
[2023-07-29] MEDS ORDERED: ENOXAPARIN 40 MG/0.4 ML SYRINGE SQ SCH ×2 (18:00→18:30)
[2023-07-29] MEDS: ENOXAPARIN 40 MG/0.4 ML SYRINGE SQ SCH (18:18)
[2023-07-29] MEDS: MICONAZOLE 2% POWDER 90 GM TOP SCH (20:15)
[2023-07-30] VITALS (7 sets, daily range): BP systolic 107–159; BP diastolic 51–79
[2023-07-30] MEDS: ENOXAPARIN 40 MG/0.4 ML SYRINGE SQ SCH (05:27)
[2023-07-30] MEDS: CATHETER FLUSH 10 ML SYR IVP SCH ×2 (05:27→14:10)
[2023-07-30 06:10] LABS: BASOPHILS % (AUTO) 0 % (0-10); EOSINOPHILS # (AUTO) 0.3 10^3/uL (0.0-0.3); EOSINOPHILS % (AUTO) 4 % (0-10); HEMATOCRIT 23 % (35-52); LYMPHOCYTES # (AUTO) 1.3 10^3/uL (1.0-4.0); LYMPHOCYTES % (AUTO) 18 % (12-44); MEAN CORPUSCULAR HEMOGLOBIN 29 pg (25-34); MEAN CORPUSCULAR HGB CONC 31 g/dL (32-36); MEAN CORPUSCULAR VOLUME 94 fL (80-99); MEAN PLATELET VOLUME 9.3 fL (9.0-12.2); MONOCYTES # (AUTO) 0.6 10^3/uL (0.0-1.0); MONOCYTES % (AUTO) 8 % (0-12); NEUTROPHILS # (AUTO) 5.2 10^3/uL (1.8-7.8); NEUTROPHILS % (AUTO) 69 % (42-75); PLATELET COUNT 233 10^3/uL (130-400); WHITE BLOOD COUNT 7.5 10^3/uL (4.3-11.0)
[2023-07-30 06:22] LABS: HEMOGLOBIN 6.9 g/dL (11.5-16.0)
[2023-07-30 06:49] LABS: ALBUMIN 3.4 GM/DL (3.2-4.5); BILIRUBIN,TOTAL 0.3 MG/DL (0.1-1.0); CALCIUM 8.4 MG/DL (8.5-10.1); CREATININE SERUM 2.25 MG/DL (0.60-1.30); POTASSIUM 4.5 MMOL/L (3.6-5.0); TOTAL PROTEIN 7.2 GM/DL (6.4-8.2)
[2023-07-30] MEDS: DOCUSATE SODIUM 100 MG CAPSULE PO SCH (09:00)
[2023-07-30] MEDS: SENNOSIDES 8.6 MG TABLET PO SCH (09:00)
[2023-07-30] MEDS: MICONAZOLE 2% POWDER 90 GM TOP SCH (09:01)
--- NOTE | 2023-07-30 09:51 | Physical Therapy Daily Note ---
PT Daily Note-Current Subjective Patient agrees to therapy. Patient states she is back to "normal" and desires to go home. Pain Section J - Health Conditions 1. Rarely or not at all 2. Occasionally 3. Frequently 4. Almost constantly 8. Unable to answer Pain Effect on Sleep: 1 Pain Interference with Therapy: 1 Pain Interference w/Day-to-Day: 1 Mental Status Patient Orientation: Normal For Age Transfers SCALE: Activities may be completed with or without assistive devices. 2-Hqvpdtctoy-okvrmck completes the activity by him/herself with no assistance from a helper. 5-Set-up or Clean-up Assistance-helper sets up or cleans up; patient completes activity. [place] assists only prior to or following the activity. 4-Supervision or Touching Assistance-helper provides verbal cues and/or touching/steadying and/or contact guard assistance as patient completes activity. Assistance may be provided throughout the activity or intermittently. 3-Partial/Moderate Assistance-helper does LESS THAN HALF the effort. [place] lifts, holds or supports trunk or limbs, but provides less than half the effort. 2-Substantial/Maximal Assistance-helper does MORE THAN HALF the effort. [place] lifts or holds trunk or limbs and provides more than half the effort. 1-Yxgpggqtj-ocgcme does ALL the effort. Patient does none of the effort to complete the activity. Or, the assistance of 2 or more helpers is required for the patient to complete the activity. If activity was not attempted, code reason: 7-Patient Refused. 9-Not Applicable-not attempted and the patient did not perform the activity before the current illness, exacerbation or injury. 10-Not Attempted due to Environmental Limitations-(lack of equipment, weather restraints, etc.). 88-Not Attempted due to Medical Conditions or Safety Concerns. Sit to Stand (QC): 6 Weight Bearing Right Lower Extremity: Right Full Weight Bearing Left Lower Extremity: Left Full Weight Bearing Gait Training Distance: 75' Walk 10 feet (QC): 6 Walk 50 ft with 2 Turns(QC): 6 Gait Assistive Device: FWW safe and functional with no deviation Assessment Patient is currently at OF with all gross motor skills safely and does not require continued skilled PT intervention at this time. PT Residential Goals Bone Worker Goals PT Bone Worker Goals Time Frame: Aug 05, 2023 Roll Left & Right (QC): 9 Sit to Lying (QC): 9 Lying-Sitting on Side/Bed(QC): 9 Sit to Stand (QC): 6 Chair/Trc-wt-Cqycw Xfer(QC): 6 Toilet Transfer (QC): 6 Car Transfer (QC): 6 Does the Patient Walk: Yes Walk 10 feet (QC): 6 Walk 50ft with 2 Turns (QC): 6 1 Step (curb) (QC): 6 4 Steps (QC): 6 PT Plan Treatment/Plan Treatment Plan: Discontinue PT Treatment Plan: Bed Mobility, Education, Functional Activity Magaly, Functional Strength, Group Therapy, Gait, Safety, Therapeutic Exercise, Transfers Treatment Duration: Aug 05, 2023 Frequency: 5 times per week Estimated Hrs Per Day: .25 hour per day Patient and/or Family Agrees t: Yes Time Time In: 845 Time Out: 900 DATE: Jul 30, 2023 Total Billed Treatment Time: 15 Total Billed Treatment 1 visit FA 15 min EMI NG PT Jul 30, 2023 09:50
--- NOTE | 2023-07-30 10:57 | Occupational Ther Daily Note ---
OT Current Status-Daily Note Subjective Pt seen in room, up in chair, agreeable to OT. No pain mentioned. Appearance Alert, cooperative Mental Status/Objective Attachments: Central Line ADL-Treatment Pt wished to shower this am. Coordinated with nursing for dressing removal. Pt got up out of chair without assistance but required a couple attempts. Walked SBA with FWW to bathroom and toileted with SBA, using taller toilet and grab bar. Transferred into walk-in shower with SBA, got on and off bench without assistance, using grab bars. Pt able to assist with setup. Pt left in shower to wash hair and body. Indep with standing to wash re and upper body. Help washing back. Care transferred to nursing since dressings will need to be changed. Pt educ logging contractor light in shower. Pt hopes to be discharged soon. Therapy Code Descriptions/Definitions Functional [place] Measure: 0=Not Assessed/NA 4=Minimal Assistance 1=Total Assistance 5=Supervision or Setup 2=Maximal Assistance 6=Modified [place] 3=Moderate Assistance 7=Complete IndependenceSCALE: Activities may be completed with or without assistive devices. 8-Ftwwkkxfcz-ihurdww completes the activity by him/herself with no assistance from a helper. 5-Set-up or Clean-up Assistance-helper sets up or cleans up; patient completes activity. [place] assists only prior to or following the activity. 4-Supervision or Touching Assistance-helper provides verbal cues and/or touching/steadying and/or contact guard assistance as patient completes activity. Assistance may be provided throughout the activity or intermittently. 3-Partial/Moderate Assistance-helper does LESS THAN HALF the effort. [place] lifts, holds or supports trunk or limbs, but provides less than half the effort. 2-Substantial/Maximal Assistance-helper does MORE THAN HALF the effort. [place] lifts or holds trunk or limbs and provides more than half the effort. 0-Dhluatfaf-oqxvwm does ALL the effort. Patient does none of the effort to complete the activity. Or, the assistance of 2 or more helpers is required for the patient to complete the activity. If activity was not attempted, code reason: 7-Patient Refused. 9-Not Applicable-not attempted and the patient did not perform the activity before the current illness, exacerbation or injury. 10-Not Attempted due to Environmental Limitations-(lack of equipment, weather restraints, etc.). 88-Not Attempted due to Medical Conditions or Safety Concerns. Toileting Hygiene (QC): 4 Toilet Transfer (QC): 4 Education OT Patient Education: Modified ADL techniques, Purpose of tx/functional activities, Transfer techniques Teaching Recipient: Patient Teaching Methods: Discussion Response to Teaching: Verbalize Understanding OT Mcc Goals Mcc Goals Time Frame: Aug 02, 2023 Eating (QC): 6 Oral Hygiene (QC): 6 Toileting Hygiene (QC): 5 Shower/Bathe Self (QC): 4 Upper Body Dressing (QC): 5 Lower Body Dressing (QC): 4 Additional Goals: 1-Demonstrate ADL Tasks, 2-Verbalize Understanding, 3- ImproveStrength/Magaly 1=Demonstrate adherence to instructed precautions during ADL tasks. 2=Patient will verbalize/demonstrate understanding of assistive device s/modifications for ADL. 3=Patient will improve strength/tolerance for activity to enable patient to perform ADL's. OT Education/Plan Problem List/Assessment Pt would benefit from skilled OT to increase her independence in basic self care and to decrease caregiver burden Discharge Recommendations Plan/Recommendations: Continue POC Treatment Plan/Plan of Care Patient would benefit from OT for education, treatment and training to promote independence in ADL's, mobility, safety and/or upper extremity function for ADL's. Plan of Care: ADL Retraining, Functional Mobility, UE Funct Exercise/Act Treatment Duration: Aug 02, 2023 Frequency: 3 times per week (3-5 times) Estimated Hrs Per Day: .25 hour per day Agreement: Yes Rehab Potential: Good Time Start Time: 09:01 Stop Time: 09:16 DATE: Jul 30, 2023 Total Time Billed (hr/min): 15 Billed Treatment Time visit, 15 minutes ADL TREY SMALL OT Jul 30, 2023 10:57
[2023-07-30] MEDS ORDERED: MICO90PO TOP (11:03)
[2023-07-30] MEDS ORDERED: FLUC100T10 PO (11:03)
[2023-07-30] MEDS ORDERED: DOXY100T2 PO (11:03)
[2023-07-30 14:17] LABS: HEMOGLOBIN 8.8 g/dL (11.5-16.0)
--- NOTE | 2023-07-30 15:53 | D/C HH Face to Face Order ---
D/C Face to Face Orders Instructions for Patient Via [facility], Patient Instructions/FollowUp: see instructions Physician to follow Patient: Lise Discharge Diet for Home: ADA Diet, Low Sodium Diet Patient Data-Allergies,Ht & Wt Patient Allergies: Coded Allergies: No Known Drug Allergies (Verified , 09/12/07) Height (Feet): 5 Height (Inches): 6.00 Weight (Pounds): 285 Weight (Ounces): 0.0 Home Health Need/Face to Face Date of Face to Face: Jul 30, 2023 Clinical Findings: Generalized weakness and fatigue, Instability, Muscle weakness, Unsteady gait I have seen Pt vttl-rf-jfrr: Yes Discharged To: Home Diagnosis/Conditions: HTN T2DM CKD Anemia Lymphedema Super super obesity Debility Problems/Diagnosis/Condition: (1) Anemia (2) CKD (chronic kidney disease) stage 4, GFR 15-29 ml/min (3) T2DM (type 2 diabetes mellitus) (4) HTN (hypertension) (5) Lymphedema (6) Super-super obese (7) Debility Patient is Homebound due to: [place] fall risk due to instabilty, Muscle weakness Homebound Status Due to the above stated illness, injury or surgical procedure (medical condition or diagnosis) and associated clinical findings, the patient is homebound because of his/her inability to leave home except with aid of a supportive device and/or person AND leaving the home requires a considerable and taxing effort or is medically contraindicated. Pt req the following assistanc: Aid of another person, Walker Home Health Nursing Orders Home Health Services Order: Nursing Services, Command And Control-Evaluate & Treat, Physical Therapy-Evaluate & Treat, Wound Care-Eval/Treat Home Health Infusion Therapy Line Start Date: Jul 28, 2023 Therapy Orders Therapy Orders: OT (must have SN or PT order), Physical Therapy Therapy Specific Orders: Eval assistive deivces, Teach enviro modifications/safety, Gait training, Increase strength/endurance Certify Stmt I certify that this patient is under my care and that I, a nurse practitioner or a physician; a roofer assistant working with me, had a face to face encounter that - meets the physician face to face encounter requirements with this patient as dated. JAYLENE JACKSON MD Jul 30, 2023 15:53
== END 2023-07-30 17:37 | disposition home health service (06) | DRG 683 ==
LOC: EDUNIT# 23:34 → ER 23:35 → 4TH 23:36 → OBSVTOIN 07-29 17:44
PROVIDERS: ADMIT Internal Medicine; ATTEND Internal Medicine
DX: I12.9 Hypertensive chronic kidney disease with stage 1 through stage 4 chronic kidney disease, or unspecified chronic kidney disease (principal); L03.115 Cellulitis of right lower limb; N18.4 Chronic kidney disease, stage 4 (severe); L03.116 Cellulitis of left lower limb; Z68.44 Body mass index [BMI] 60.0-69.9, adult; D63.1 Anemia in chronic kidney disease; L30.4 Erythema intertrigo; B37.2 Candidiasis of skin and nail; I89.0 Lymphedema, not elsewhere classified; E66.01 Morbid (severe) obesity due to excess calories; E11.22 Type 2 diabetes mellitus with diabetic chronic kidney disease; G25.81 Restless legs syndrome; H54.7 Unspecified visual loss; Z79.84 Long term (current) use of oral hypoglycemic drugs; Z79.82 Long term (current) use of aspirin; Z79.899 Other long term (current) drug therapy
CPT/HCPCS: 36415; 36430; 80048; 80053; 82274; 82607; 82728; 83540; 85014; 85018; 85025; 85045; 86850; 86900; 86901; 86920; 94760; 96374; G0378

== ENCOUNTER 2023-08-07 15:10 | Emergency (ER) | payer MEDICARE, OTHER ==
[~2023-08-07] VITALS: Ht 162.5 cm; Wt 162.4 kg
[~2023-08-07 15:10] MED LIST changes: +CHOL10004 PO; +DOXY100T2 PO; +EMPA10TA PO; +FERR-84 PO; +FLUC100T10 PO; +MICO90PO TOP; +PIOG45TA65 PO
[2023-08-07] MEDS ORDERED: amLODIPine 5 MG TABLET PO ONE (16:00)
[2023-08-07 16:17] VITALS: BP_SYST 141; BP_SYST 166; BP_SYST 92; BP_DIAS 57; BP_DIAS 77; BP_DIAS 79
[2023-08-07 16:18] LABS: BASOPHILS % (AUTO) 1 % (0-10); EOSINOPHILS # (AUTO) 0.2 10^3/uL (0.0-0.3); EOSINOPHILS % (AUTO) 4 % (0-10); HEMATOCRIT 27 % (35-52); HEMOGLOBIN 7.7 g/dL (11.5-16.0); LYMPHOCYTES % (AUTO) 20 % (12-44); MEAN CORPUSCULAR HEMOGLOBIN 28 pg (25-34); MEAN CORPUSCULAR HGB CONC 28 g/dL (32-36); MEAN CORPUSCULAR VOLUME 99 fL (80-99); MEAN PLATELET VOLUME 9.7 fL (9.0-12.2); MONOCYTES # (AUTO) 0.7 10^3/uL (0.0-1.0); MONOCYTES % (AUTO) 13 % (0-12); NEUTROPHILS # (AUTO) 3.3 10^3/uL (1.8-7.8); NEUTROPHILS % (AUTO) 63 % (42-75); PLATELET COUNT 227 10^3/uL (130-400); WHITE BLOOD COUNT 5.2 10^3/uL (4.3-11.0)
[2023-08-07 16:22] LABS: POTASSIUM 5.1 MMOL/L (3.6-5.0)
[2023-08-07 16:24] LABS: CALCIUM 8.8 MG/DL (8.5-10.1)
[2023-08-07 16:25] LABS: CLARITY,URINE CLEAR; COLOR,URINE YELLOW; GLUCOSE, URINE (UA) NEGATIVE (NEGATIVE); KETONES,URINE NEGATIVE (NEGATIVE); PROTEIN,URINE TRACE (NEGATIVE)
[2023-08-07 16:26] LABS: BACTERIA,URINE NEGATIVE /HPF; BILIRUBIN,URINE NEGATIVE (NEGATIVE); LEUKOCYTE ESTERASE ,URINE NEGATIVE (NEGATIVE); NITRITE,URINE NEGATIVE (NEGATIVE); SQUAMOUS EPITHELIAL CELL,UR RARE /HPF
[2023-08-07 16:28] LABS: CREATININE SERUM 1.55 MG/DL (0.60-1.30)
[2023-08-07 16:30] LABS: MAGNESIUM 2.1 MG/DL (1.6-2.4)
--- NOTE | 2023-08-07 17:15 | ED General ---
General Chief Complaint: Dizziness/Syncope Stated Complaint: BLOOD PRESSURE PROBLEMS Nursing Triage Note: PATIENT DESCRIBES HAVING A SYNCOPAL EPISODE AT HOME AROUND 1410 TODAY. FIRE WAS NEEDED TO COME TO HER HOME AND HELP HER UP. PATIENT DAUGHTER WANTED PATIENT TO COME IN R/T HER HIGH BLOOD PRESSURE TAKEN BY FIRE WHILE AT HOME. PATIENT IS UNSURE WHAT HAPPENED WHEN SHE FELL STATING I WAS WALKING AND NEXT THING I KNEW I WAS ON THE FLOOR. PATIENT DENIES HITTING HEAD FAR SHE KNEW. Source of Information: Patient Exam Limitations: No Limitations History of Present Illness Date Seen by Provider: Aug 07, 2023 Time Seen by Provider: 15:35 Allergies and Home Medications Allergies Coded Allergies: tramadol (Verified Allergy, Mild, Abdominal Pain, 08/07/23) NAUSEA Patient Home Medication List Amlodipine Besylate (Amlodipine Besylate) 5 Mg Tablet, 5 MG PO DAILY, (Reported) Entered as Reported by: AGUILA MACK on 10/20/17913 Ascorbate Calcium (Vitamin C) 500 Mg Tablet, 500 MG PO DAILY, (Reported) Entered as Reported by: AGUILA MACK on 10/20/17913 Aspirin (Aspirin EC) 81 Mg Tablet.dr, 81 MG PO HS, (Reported) Entered as Reported by: AGUILA MACK on 10/20/17913 Cholecalciferol (Vitamin D3) (Vitamin D3) 25 Mcg (1000 Unit) Tablet, 25 MCG PO DAILY, (Reported) Entered as Reported by: LINDA MURCIA on 07/29/231624 Cyanocobalamin (Vitamin B-12) (Vitamin B-12) 2,000 Mcg Tablet.er, 2,000 MCG PO DAILY, (Reported) Entered as Reported by: AGUILA MACK on 10/20/17913 Doxycycline Hyclate (Doxycycline Hyclate) 100 Mg Tablet, 100 MG PO BID@,17 Prescribed by: JAYLENE JACKSON on 07/30/23 1103 Empagliflozin (Jardiance) 10 Mg Tablet, 10 MG PO DAILY, (Reported) Entered as Reported by: LINDA MURCIA on 07/29/23 162 Ferrous Sulfate (Iron) 325 Mg (65 Mg Iron) Tablet, 650 MG PO DAILY, (Reported) Entered as Reported by: LINDA MURCIA on 07/29/23 162 Fluconazole (Fluconazole) 100 Mg Tablet, 100 MG PO DAILY Prescribed by: JAYLENE JACKSON on 07/30/23 1103 Miconazole Nitrate (Lotrimin AF) 2 % Powder, 1 GM TOP BID Prescribed by: JAYLENE JACKSON on 07/30/23 1103 [place]-3/Dha/Epa/Fish Oil ([place]-3 Fish Oil 1,000 mg Sfgl) 1,000 Mg Capsule, 2,000 MG PO DAILY, (Reported) Entered as Reported by: AGUILA MACK on 10/20/17 0914 [place]-3/Dha/Epa/Fish Oil ([place]-3 Fish Oil 1,000 mg Sfgl) 1,000 Mg Capsule, 1,000 MG PO HS, (Reported) Entered as Reported by: AGUILA MACK on 10/20/17 09 Pioglitazone HCl (Pioglitazone HCl) 45 Mg Tablet, 45 MG PO DAILY, (Reported) Entered as Reported by: LINDA MURCIA on 07/29/23 1625 Pravastatin Sodium (Pravastatin Sodium) 40 Mg Tablet, 40 MG PO HS, (Reported) Entered as Reported by: AGUILA MACK on 10/20/17913 Past Majwsbn-Escfeq-Mlihld Hx Patient Social History Tobacco Use?: No Use of E-Cig and/or Vaping dev: No Substance use?: No Alcohol Use?: No Pt feels they are or have been: No Immunizations Up To Date Tetanus Booster (TDap): Unknown Influenza Vaccine Up-to-Date: Yes; Up-to-Date First/Initial COVID19 Vaccinat: 3 SHOTS Second COVID19 Vaccination Tomás: YES Third COVID19 Vaccination Date: YES Past Medical History Surgery/Hospitalization HX: LYMPHADEMA, HTN, DIABETES, HYST, INFUSAPORT, IRON DEF ANEMIA, BILATERAL FOOT SURG. CATERACTS DAVE Family Medical History No Pertinent Family Hx Physical Exam Vital Signs Vital Signs - First Documented 08/07/23 15:20 Temp 36.6 Pulse 80 Resp 24 B/P (MAP) 118/86 (97) Pulse Ox 100 O2 Delivery Room Air Capillary Refill : Less Than 3 Seconds Height, Weight, BMI Height: 5'6.00" Weight: 285lbs. 0.0oz. 129.195163in; 61.00 BMI Method: Progress/Results/Core Measures Suspected Sepsis SIRS Temperature: Pulse: 100 Respiratory Rate: 24 Laboratory Tests 08/07/23 15:50: White Blood Count 5.2 Blood Pressure 166 /79 Mean: 108 Laboratory Tests 08/07/23 15:50: Creatinine 1.55H, Platelet Count 227 Results/Orders Lab Results Laboratory Tests Test 08/07/23 15:50 08/07/23 16:05 Range/Units White Blood Count 5.2 4.3-11.0 10^3/uL Red Blood Count 2.73 L 3.80-5.11 10^6/uL Hemoglobin 7.7 L 11.5-16.0 g/dL Hematocrit 27 L 35-52 % Mean Corpuscular Volume 99 80-99 fL Mean Corpuscular Hemoglobin 28 25-34 pg Mean Corpuscular Hemoglobin Concent 28 L 32-36 g/dL Red Cell Distribution Width 17.1 H 10.0-14.5 % Platelet Count 227 130-400 10^3/uL Mean Platelet Volume 9.7 9.0-12.2 fL Immature Granulocyte % (Auto) 0 % Neutrophils (%) (Auto) 63 42-75 % Lymphocytes (%) (Auto) 20 12-44 % Monocytes (%) (Auto) 13 H 0-12 % Eosinophils (%) (Auto) 4 0-10 % Basophils (%) (Auto) 1 0-10 % Neutrophils # (Auto) 3.3 1.8-7.8 10^3/uL Lymphocytes # (Auto) 1.0 1.0-4.0 10^3/uL Monocytes # (Auto) 0.7 0.0-1.0 10^3/uL Eosinophils # (Auto) 0.2 0.0-0.3 10^3/uL Basophils # (Auto) 0.0 0.0-0.1 10^3/uL Immature Granulocyte # (Auto) 0.0 0.0-0.1 10^3/uL Sodium Level 140 135-145 MMOL/L Potassium Level 5.1 H 3.6-5.0 MMOL/L Chloride Level 112 H 98-107 MMOL/L Carbon Dioxide Level 20 L 21-32 MMOL/L Anion Gap 8 5-14 MMOL/L Blood Urea Nitrogen 35 H 7-18 MG/DL Creatinine 1.55 H 0.60-1.30 MG/DL Estimat Glomerular Filtration Rate 36 BUN/Creatinine Ratio 23 Glucose Level 105 70-105 MG/DL Calcium Level 8.8 8.5-10.1 MG/DL Magnesium Level 2.1 1.6-2.4 MG/DL Urine Color YELLOW Urine Clarity CLEAR Urine pH 5.0 5-9 Urine Specific [place] 1.020 1.016-1.022 Urine Protein TRACE H NEGATIVE Urine Glucose (UA) NEGATIVE NEGATIVE Urine Ketones NEGATIVE NEGATIVE Urine Nitrite NEGATIVE NEGATIVE Urine Bilirubin NEGATIVE NEGATIVE Urine Urobilinogen 0.2 < = 1.0 MG/DL Urine Leukocyte Esterase NEGATIVE NEGATIVE Urine RBC (Auto) TRACE H NEGATIVE Urine RBC NONE /HPF Urine WBC NONE /HPF Urine Squamous Epithelial Cells RARE /HPF Urine Crystals NONE /LPF Urine Bacteria NEGATIVE /HPF Urine Casts NONE /LPF Urine Mucus NEGATIVE /LPF Urine Culture Indicated NO My Orders Orders - YANDEL MONSALVE MD Ed Iv/Invasive Line Start (08/07/23 15:49) Basic Metabolic Panel (08/07/23 15:49) Cbc And Automated Diff (08/07/23 15:49) Magnesium (08/07/23 15:49) Ua Culture If Indicated (08/07/23 15:49) Amlodipine Tablet (Amlodipine Tablet) (08/07/23 16:00) Vital Signs/I&O 08/07/23 08/07/23 15:20 16:17 Temp 36.6 Pulse 80 78 79 100 Resp 24 B/P (MAP) 118/86 (97) 141/57 (85) 92/77 (82) 166/79 (108) Pulse Ox 100 O2 Delivery Room Air Capillary Refill : Less Than 3 Seconds Blood Pressure Mean: 108 Departure Impression Primary Impression: Fall on same level Qualified Codes: W18.30XA - Fall on same level, unspecified, initial encounter Additional Impressions: Anemia Qualified Codes: D64.9 - Anemia, unspecified Rectal bleeding Labile blood pressure Disposition: 01 HOME, SELF-CARE Condition: Stable Departure-Patient Inst. Decision time for Depature: 17:13 Referrals: MANE LEZAMA MD (PCP/Family) Primary Care Physician Patient Instructions: Bloody stools Add. Discharge Instructions: Continue your medications as previously prescribed. Pursue endoscopy as soon as possible. Include upper endoscopy if permitted by insurance and Dr. Zavala to rule out all possible sources of GI blood loss. Keep your follow-up appointment with Dr. Lezama. At that appointment, discuss possible alternatives to amlodipine as amlodipine could worsen swelling. Continue with physical therapy to promote strength and balance. Obtain labs as previously ordered for next week to monitor your hemoglobin. Your hemoglobin was 8.8 when you left the hospital and is now 7.7. Hemoglobin below 7.0 may require transfusion. Use a walker or cane when necessary to help support your ambulation. Return to care if you have worsening symptoms despite following these instructions. All discharge instructions reviewed with patient and/or family. Voiced understanding. YANDEL MONSALVE MD Aug 07, 2023 17:15
[2023-08-07 17:30] VITALS: BP 156/44
== END 2023-08-07 17:30 | disposition home or self-care (01) ==
LOC: EDUNIT# 15:10 → ER 15:12
DX: I10 Essential (primary) hypertension (principal); D50.9 Iron deficiency anemia, unspecified; K62.5 Hemorrhage of anus and rectum; W18.30XA Fall on same level, unspecified, initial encounter
CPT/HCPCS: 36415; 80048; 81000; 83735; 85025

== ENCOUNTER 2023-08-19 22:20 | Inpatient (IN) | payer MEDICARE, OTHER ==
[~2023-08-19] VITALS: Ht 162 cm; Wt 169.3 kg
[2023-08-19] MEDS ORDERED: PIPERACILLIN/Tazobactam 4.5 GM in NS (IVPB) 100 ML 100 ML IV ONE (22:30)
--- NOTE | 2023-08-19 22:34 | ED General ---
General Stated Complaint: INCREASED PAIN IN FEET Source of Information: Patient, EMS, Old Records History of Present Illness Date Seen by Provider: Aug 19, 2023 Time Seen by Provider: 22:22 Initial Comments PT ARRIVES VIA EMS FROM HOME, WITH MULTIPLE FIREMEN FOR LIFT ASSIST--REQUIRES 6 + PERSON ASSIST FOR TRANSFER FROM EMS COT TO ER COT PT LIVES AT HOME ALONE. PT HAS NOT BEEN ABLE TO GET OUT OF HER CHAIR FOR 3-4 DAYS C/O BILATERAL FOOT PAIN AND CHRONIC LEG SWELLING AND CHRONIC LEG WOUNDS, WELL SORES ON HER BUTTOCKS PT HAS NOT TAKEN ANY OF HER MEDICATIONS FOR 3-4 DAYS BECAUSE SHE COULD NOT GET OUT OF HER CHAIR NO INCREASE IN CHRONIC SHORTNESS OF BREATH, STATES HER HEART HAS BEEN POUNDING AT TIMES PT WAS ADMITTED 07/29-07/30 FOR ANEMIA AND RECEIVED BLOOD TRANSFUSIONS. SHE STATES SHE IS SUPPOSED TO BE HAVING AN UPPER AND LOWER ENDOSCOPY AT SOME TIME FOR FURTHER EVALUATION OF THIS PROBLEM SHE WAS SEEN HERE 08/07/23 FOR FALL--NO INJURIES NOTED. PT HAS CHRONIC LEG WOUNDS, AND CHRONIC BUTTOCKS/SACRAL WOUNDS SHE HAS CHRONIC LEG SWELLING. SHE IS NON INSULIN DEPENDENT DIABETIC, MORBIDLY OBESE, HAS HTN, HYPERLIPIDEMIA PCP: DR. CUNNINGHAM Allergies and Home Medications Allergies Coded Allergies: tramadol (Verified Allergy, Mild, Abdominal Pain, 08/07/23) NAUSEA Patient Home Medication List Home Medication List Reviewed: Yes Amlodipine Besylate (Amlodipine Besylate) 5 Mg Tablet, 5 MG PO DAILY, (Reported) Entered as Reported by: AGUILA MACK on 10/20/17913 Last Action: Continued Ascorbate Calcium (Vitamin C) 500 Mg Tablet, 500 MG PO DAILY, (Reported) Entered as Reported by: AGUILA MACK on 10/20/17913 Last Action: Held Aspirin (Aspirin EC) 81 Mg Tablet.dr, 81 MG PO HS, (Reported) Entered as Reported by: AGUILA MACK on 10/20/17913 Last Action: Continued Cholecalciferol (Vitamin D3) (Vitamin D3) 25 Mcg (1000 Unit) Tablet, 25 MCG PO DAILY, (Reported) Entered as Reported by: LINDA MURCIA on 07/29/23 9395 Last Action: Continued Cyanocobalamin (Vitamin B-12) (Vitamin B-12) 2,000 Mcg Tablet.er, 2,000 MCG PO DAILY, (Reported) Entered as Reported by: AGUILA MACK on 10/20/17913 Last Action: Held Furosemide (Furosemide) 40 Mg Tablet, 40 MG PO MO,WE,FR, (Reported) Entered as Reported by: LINDA MURCIA on 08/20/23 112 Last Action: Continued Gabapentin (Gabapentin) 100 Mg Capsule, 100 MG PO TID, (Reported) Entered as Reported by: LINDA MURCIA on 08/20/23 111 Last Action: Continued [place]-3/Dha/Epa/Fish Oil ([place]-3 Fish Oil 1,000 mg Sfgl) 1,000 Mg (120 Mg-180 Mg) Capsule, 2,000 MG PO DAILY, (Reported) Entered as Reported by: AGUILA MACK on 10/20/17913 Last Action: Held [place]-3/Dha/Epa/Fish Oil ([place]-3 Fish Oil 1,000 mg Sfgl) 1,000 Mg (120 Mg-180 Mg) Capsule, 1,000 MG PO HS, (Reported) Entered as Reported by: AGUILA MACK on 10/20/17913 Last Action: Held Pioglitazone HCl (Pioglitazone HCl) 45 Mg Tablet, 45 MG PO DAILY, (Reported) Entered as Reported by: LINDA MURCIA on 07/29/231624 Last Action: Converted Pravastatin Sodium (Pravastatin Sodium) 40 Mg Tablet, 40 MG PO HS, (Reported) Entered as Reported by: AGUILA MACK on 10/20/17913 Last Action: Converted Discontinued Medications Doxycycline Hyclate (Doxycycline Hyclate) 100 Mg Tablet, 100 MG PO BID@,17 Discontinued Reason: No Longer Taking Prescribed by: JAYLENE JACKSON on 07/30/231102 Last Action: Discontinued Ferrous Sulfate (Iron) 325 Mg (65 Mg Iron) Tablet, 650 MG PO DAILY, (Reported) Discontinued Reason: Duplicate Order Entered as Reported by: LINDA MURCIA on 07/29/231624 Last Action: Discontinued Fluconazole (Fluconazole) 100 Mg Tablet, 100 MG PO DAILY Discontinued Reason: No Longer Taking Prescribed by: JAYLENE JACKSON on 07/30/231102 Last Action: Discontinued Miconazole Nitrate (Lotrimin AF) 2 % Powder, 1 GM TOP BID Discontinued Reason: No Longer Taking Prescribed by: JAYLENE JACKSON on 07/30/231102 Last Action: Discontinued Review of Systems Review of Systems Constitutional: see HPI, malaise, weakness EENTM: no symptoms reported Respiratory: see HPI Cardiovascular: see HPI Gastrointestinal: no symptoms reported Genitourinary: no symptoms reported Musculoskeletal: see HPI Skin: see HPI Psychiatric/Neurological: No Symptoms Reported Hematologic/Lymphatic: See HPI, Anemia Immunological/Allergic: no symptoms reported Past Nyrucyd-Ojdoxa-Bfbhqc Hx Patient Social History Tobacco Use?: No Substance use?: No Alcohol Use?: No Immunizations Up To Date Tetanus Booster (TDap): Unknown First/Initial COVID19 Vaccinat: 3 SHOTS Second COVID19 Vaccination Tomás: YES Third COVID19 Vaccination Date: YES Past Medical History Surgery/Hospitalization HX: LYMPHADEMA, HTN, DIABETES, HYST, INFUSAPORT, IRON DEF ANEMIA, BILATERAL FOOT SURG. CATERACTS DAVE Surgeries: Yes Eye Surgery, Hysterectomy, Oophorectomy, Orthopedic Respiratory: No Cardiac: Yes Chronic Edema/Swelling, High Cholesterol, Hypertension Neurological: No Genitourinary: No Gastrointestinal: No Musculoskeletal: Yes Arthritis Endocrine: Yes (MORBID OBESITY) Diabetes, Non-Insulin dep HEENT: No Cancer: No Psychosocial: No Integumentary: Yes (CHRONIC LEG AND BUTTOCKS WOUNDS) Blood Disorders: Yes (ANEMIA) Adverse Reaction/Blood Tranf: No Family Medical History No Pertinent Family Hx Physical Exam Vital Signs Vital Signs - First Documented 08/19/23 22:23 Temp 37.7 Pulse 94 Resp 20 Pulse Ox 98 O2 Delivery Room Air Capillary Refill : Height, Weight, BMI Height: 5'6.00" Weight: 285lbs. 0.0oz. 129.647856af; 61.00 BMI Method: General Appearance: No Apparent Distress, WD/WN, Obese (MORBIDLY OBESE), Other (EXTREMELY MALODOROUS) HEENT: PERRL/EOMI, Pale Conjunctivae (L), Pale Conjunctivae (R) Neck: Normal Inspection Respiratory: Normal Breath Sounds, No Accessory Muscle Use, No Respiratory Distress Cardiovascular: Regular Rate, Rhythm Gastrointestinal: Non Tender Extremity: Other (PT IS MORBIDLY OBESE, UNABLE TO DETERMINE DEGREEE OF LEG EDEMA--PT WITH EXTENSIVE CHRONIC VENOUS STASIS CHANGES) Focused Exam Sepsis Stage: Ruled Out (DOES NOT MEET CRITERIA) Possible Source: Skin/Soft Tissue Lactate Level 08/19/23 22:35: Lactic Acid Level 0.84 Time of Focused Exam: 23:25 Respiratory: Normal Breath Sounds, No Accessory Muscle Use, No Respiratory Distress Cardiovascular: Regular Rate, Rhythm Capillary Refill: Less Than 3 Seconds Skin: normal color, warm/dry Lactic Acid Level Laboratory Tests Test 08/19/23 22:35 Lactic Acid Level 0.84 MMOL/L (0.50-2.00) Within 3hrs of presentation: Admin fluids, Admin ABX, Blood cultures prior to ABX's, Focus exam, Lactate level Progress/Results/Core Measures Suspected Sepsis SIRS Temperature: Pulse: Respiratory Rate: Laboratory Tests 08/19/23 22:35: White Blood Count 8.7 Blood Pressure / Mean: 08/19/23 22:35: Lactic Acid Level 0.84 Laboratory Tests 08/19/23 22:35: Creatinine 1.57H, INR Comment 1.1, Platelet Count 269, Total Bilirubin 0.3 Results/Orders Lab Results Laboratory Tests Test 08/19/23 22:35 08/19/23 22:45 08/19/23 22:47 08/20/23 00:11 Range/Units White Blood Count 8.7 4.3-11.0 10^3/uL Red Blood Count 2.24 L 3.80-5.11 10^6/uL Hemoglobin 6.4 *L 11.5-16.0 g/dL Hematocrit 22 L 35-52 % Mean Corpuscular Volume 97 80-99 fL Mean Corpuscular Hemoglobin 29 25-34 pg Mean Corpuscular Hemoglobin Concent 29 L 32-36 g/dL Red Cell Distribution Width 17.0 H 10.0-14.5 % Platelet Count 269 130-400 10^3/uL Mean Platelet Volume 10.2 9.0-12.2 fL Immature Granulocyte % (Auto) 1 % Neutrophils (%) (Auto) 70 42-75 % Lymphocytes (%) (Auto) 17 12-44 % Monocytes (%) (Auto) 9 0-12 % Eosinophils (%) (Auto) 3 0-10 % Basophils (%) (Auto) 0 0-10 % Neutrophils # (Auto) 6.1 1.8-7.8 10^3/uL Lymphocytes # (Auto) 1.5 1.0-4.0 10^3/uL Monocytes # (Auto) 0.8 0.0-1.0 10^3/uL Eosinophils # (Auto) 0.3 0.0-0.3 10^3/uL Basophils # (Auto) 0.0 0.0-0.1 10^3/uL Immature Granulocyte # (Auto) 0.0 0.0-0.1 10^3/uL Erythrocyte Sedimentation Rate > 140 H 0-30 MM/HR Prothrombin Time 14.4 12.2-14.7 SEC INR Comment 1.1 0.8-1.4 Activated Partial Thromboplast Time 33 24-35 SEC D-Dimer 2.04 H 0.00-0.49 UG/ML Sodium Level 138 135-145 MMOL/L Potassium Level 5.1 H 3.6-5.0 MMOL/L Chloride Level 110 H 98-107 MMOL/L Carbon Dioxide Level 21 21-32 MMOL/L Anion Gap 7 5-14 MMOL/L Blood Urea Nitrogen 24 H 7-18 MG/DL Creatinine 1.57 H 0.60-1.30 MG/DL Estimat Glomerular Filtration Rate 35 BUN/Creatinine Ratio 15 Glucose Level 110 H 70-105 MG/DL Lactic Acid Level 0.84 0.50-2.00 MMOL/L Calcium Level 8.8 8.5-10.1 MG/DL Corrected Calcium 9.4 8.5-10.1 MG/DL Magnesium Level 2.4 1.6-2.4 MG/DL Total Bilirubin 0.3 0.1-1.0 MG/DL Aspartate Amino Transf (AST/SGOT) 21 5-34 U/L Alanine Aminotransferase (ALT/SGPT) 10 0-55 U/L Alkaline Phosphatase 64 40-136 U/L Troponin I < 0.028 <0.028 NG/ML C-Reactive Protein High Sensitivity 3.32 H 0.00-0.50 MG/DL B-Type Natriuretic Peptide 103.2 H <100.0 PG/ML Total Protein 7.6 6.4-8.2 GM/DL Albumin 3.3 3.2-4.5 GM/DL TSH [place] Testing 1.15 0.35-4.94 UIU/ML Total Creatine Kinase 288 H 29-168 U/L Influenza Type A (RT-PCR) Not Detected Not Detecte Influenza Type B (RT-PCR) Not Detected Not Detecte SARS-CoV-2 RNA (RT-PCR) Not Detected Not Detecte Urine Color YELLOW Urine Clarity CLEAR Urine pH 5.0 5-9 Urine Specific [place] 1.015 L 1.016-1.022 Urine Protein NEGATIVE NEGATIVE Urine Glucose (UA) NEGATIVE NEGATIVE Urine Ketones TRACE H NEGATIVE Urine Nitrite NEGATIVE NEGATIVE Urine Bilirubin NEGATIVE NEGATIVE Urine Urobilinogen 0.2 < = 1.0 MG/DL Urine Leukocyte Esterase NEGATIVE NEGATIVE Urine RBC (Auto) NEGATIVE NEGATIVE Urine RBC RARE /HPF Urine WBC NONE /HPF Urine Squamous Epithelial Cells 0-2 /HPF Urine Crystals PRESENT H /LPF Urine Amorphous Sediment FEW JAY URATES H /LPF Urine Bacteria NEGATIVE /HPF Urine Casts NONE /LPF Urine Mucus NEGATIVE /LPF Urine Culture Indicated CULTURE PENDING Micro Results Microbiology 08/19/23 Gram Stain, Resulted Pending 08/19/23 Wound Culture - Preliminary, Resulted Culture In Progress 08/19/23 Blood Culture - Preliminary, Resulted 08/19/23 Blood Culture - Preliminary, Resulted My Orders Orders - SUSANNE HERNANDEZ DO Ed Iv/Invasive Line Start (08/19/23 22:23) Ekg Tracing (08/19/23 22:) Monitor-Rhythm Ecg Trace Only (08/19/23 22:23) Chest 1 View, Ap/Pa Only (08/19/23 22:23) Bnp [place] (08/19/23 22:23) Cbc And Automated Diff (08/19/23 22:23) Comprehensive Metabolic Panel (08/19/23 22:23) Hs C Reactive Protein (08/19/23 22:23) Fibrin Degradation Products (08/19/23 22:23) Magnesium (08/19/23 22:23) Protime With Inr (08/19/23 22:) Partial Thromboplastin Time (08/19/23 22:23) Thyroid Analyzer (08/19/23 22:23) Erythrocyte Sedimentation Rate (08/19/23 22:23) Troponin I [place] (08/19/23 22:23) Covid 19 Inhouse Test (08/19/23 22:30) Blood Culture (08/19/23 22:30) Urinalysis (08/19/23 22:30) Urine Culture (08/19/23 22:30) Ed Iv/Invasive Line Start (08/19/23 22:30) Vital Signs Adult Sepsis Patie Q15M (08/19/23 22:30) O2 (08/19/23 22:30) Remove Rings In Anticipation O (08/19/23 22:30) Lactic Acid Analyzer (08/19/23 22:30) Piperacillin/Tazobactam (Piperacillin/Ta (08/19/23 22:30) Vancomycin Injection (Vancomycin Injecti (08/19/23 22:30) Influenza A And B By Pcr (08/19/23 22:30) Catheter(Urinary) Insert & Ass 03,15 (08/19/23 22:31) Lidocaine 2% (Urojet) (Lidocaine 2% (Uro (08/19/23 22:45) Red Cells Leukocytes Reduced (08/19/23 23:09) Type And Screen (08/19/23 23:09) Wound Culture (08/19/23 23:42) Medications Given in ED Vital Signs/I&O 08/19/23 22:23 Temp 37.7 Pulse 94 Resp 20 B/P (MAP) Pulse Ox 98 O2 Delivery Room Air Capillary Refill : Departure Communication (Admissions) [id number]--SPOKE WITH DR. MILLER, HOSPITALIST FOR DR. CUNNINGHAM'S PATIENTS, ACCEPTS PT FOR ADMIT Impression Primary Impression: Bilateral lower leg cellulitis Additional Impressions: CHRONIC LEG WOUNDS CHRONIC SACRAL WOUNDS Severe anemia SUPERMORBID OBESITY NIDDM HTN (hypertension) Chronic renal insufficiency Unable to care for self Disposition: ADMITTED INPATIENT Condition: Stable Admissions Decision to Admit Reason: Admit from ER (General) Decision to Admit/Date: Aug 19, 2023 Time/Decision to Admit Time: 23:30 Departure-Patient Inst. Referrals: MANE CUNNINGHAM MD (PCP/Family) Primary Care Physician SUSANNE HERNANDEZ DO Aug 19, 2023 22:34
[2023-08-19] MEDS ORDERED: LIDOCAINE UROJET 2% GEL 10 ML PKG TOP ONE (22:45)
[2023-08-19 22:47] LABS: BASOPHILS % (AUTO) 0 % (0-10); EOSINOPHILS # (AUTO) 0.3 10^3/uL (0.0-0.3); EOSINOPHILS % (AUTO) 3 % (0-10); HEMATOCRIT 22 % (35-52); LYMPHOCYTES # (AUTO) 1.5 10^3/uL (1.0-4.0); LYMPHOCYTES % (AUTO) 17 % (12-44); MEAN CORPUSCULAR HEMOGLOBIN 29 pg (25-34); MEAN CORPUSCULAR HGB CONC 29 g/dL (32-36); MEAN CORPUSCULAR VOLUME 97 fL (80-99); MEAN PLATELET VOLUME 10.2 fL (9.0-12.2); MONOCYTES # (AUTO) 0.8 10^3/uL (0.0-1.0); MONOCYTES % (AUTO) 9 % (0-12); NEUTROPHILS # (AUTO) 6.1 10^3/uL (1.8-7.8); NEUTROPHILS % (AUTO) 70 % (42-75); PLATELET COUNT 269 10^3/uL (130-400); WHITE BLOOD COUNT 8.7 10^3/uL (4.3-11.0)
[2023-08-19 22:57] LABS: INR 1.1 (0.8-1.4); PROTHROMBIN TIME PATIENT 14.4 SEC (12.2-14.7)
[2023-08-19 23:00] LABS: FIBRIN DEGRADATION PRODUCTS 2.04 UG/ML (0.00-0.49)
[2023-08-19 23:07] LABS: ALBUMIN 3.3 GM/DL (3.2-4.5); CHLORIDE 110 MMOL/L (98-107); POTASSIUM 5.1 MMOL/L (3.6-5.0); SODIUM 138 MMOL/L (135-145)
[2023-08-19 23:08] LABS: HEMOGLOBIN 6.4 g/dL (11.5-16.0)
[2023-08-19 23:09] LABS: CALCIUM 8.8 MG/DL (8.5-10.1)
[2023-08-19 23:10] LABS: ERYTHROCYTE SEDIMENTATION RATE > 140 MM/HR (0-30); GLUCOSE 110 MG/DL (70-105); TOTAL PROTEIN 7.6 GM/DL (6.4-8.2)
[2023-08-19 23:11] LABS: BILIRUBIN,TOTAL 0.3 MG/DL (0.1-1.0); CARBON DIOXIDE 21 MMOL/L (21-32)
[2023-08-19 23:13] LABS: ALKALINE PHOSPHATASE 64 U/L (40-136); CREATININE SERUM 1.57 MG/DL (0.60-1.30); GFR ESTIMATED 35
[2023-08-19 23:15] LABS: BUN/CREATININE RATIO 15
[2023-08-19 23:16] LABS: ALANINE AMINOTRANSFERASE 10 U/L (0-55); MAGNESIUM 2.4 MG/DL (1.6-2.4)
[2023-08-19 23:36] LABS: TSH (THYROID ANALYZER) 1.15 UIU/ML (0.35-4.94)
[2023-08-20] VITALS (22 sets, daily range): BP systolic 107–159; BP diastolic 46–70
[2023-08-20] MEDS: VANCOMYCIN INJECTION 1,000 MG in NS (IVPB) 250 ML 250 ML IV SCH ×2 (00:03→03:36)
[2023-08-20] MEDS ORDERED: ONDANSETRON INJECTION 4 MG/2 ML (SDV) IV PRN (01:15)
[2023-08-20] MEDS ORDERED: VASOPRESSIN INJECTION 20 UNIT in NS (IVPB) 100 ML 100 ML IV SCH (01:15)
[2023-08-20] MEDS ORDERED: ACETAMINOPHEN 500 MG TABLET PO PRN (01:15)
[2023-08-20] MEDS ORDERED: EPINEPHrine 1 MG INJECTION 4 MG in NS (IVPB) 250 ML 248 ML IV SCH (01:15)
[2023-08-20] MEDS ORDERED: fentaNYL INJECTION 100 MCG/2 ML VIAL IV PRN (01:15)
[2023-08-20 01:57] LABS: AMORPHOUS SEDIMENT,UR FEW AMOR URATES /LPF; BACTERIA,URINE NEGATIVE /HPF; BILIRUBIN,URINE NEGATIVE (NEGATIVE); CLARITY,URINE CLEAR; COLOR,URINE YELLOW; GLUCOSE, URINE (UA) NEGATIVE (NEGATIVE); KETONES,URINE TRACE (NEGATIVE); LEUKOCYTE ESTERASE ,URINE NEGATIVE (NEGATIVE); NITRITE,URINE NEGATIVE (NEGATIVE); PROTEIN,URINE NEGATIVE (NEGATIVE); RBC,URINE RARE /HPF
[2023-08-20 01:58] LABS: SQUAMOUS EPITHELIAL CELL,UR 0-2 /HPF
[2023-08-20] MEDS ORDERED: VANCOMYCIN 1 GM/NS 250 ML IVPB IV ONE ×2 (02:00)
[2023-08-20] MEDS ORDERED: NS IV 500 ML 500 ML ONE (02:04)
[2023-08-20] MEDS: NOREPINEPHRINE 8 MG/250 ML 250 ML IV SCH ×2 (02:42→09:56)
[2023-08-20] MEDS ORDERED: NS IV 500 ML 500 ML IV ONE (02:45)
[2023-08-20] MEDS ORDERED: NS (IVPB) 250 ML 250 ML ONE (04:34)
[2023-08-20] MEDS ORDERED: VANCOMYCIN 1000 MG/VIAL ONE (04:34)
[2023-08-20] MEDS: PIPERACILLIN/Tazobactam 4.5 GM in NS (IVPB) 100 ML 100 ML IV SCH ×3 (06:14→21:35)
[2023-08-20] MEDS: NS IV 1000 ML 1,000 ML IV SCH ×2 (06:16→13:40)
[2023-08-20] MEDS: inSUlin ASPART 1 UNIT/0.01 ML (PER UNIT) SC SCH ×4 (06:18→20:06)
--- NOTE | 2023-08-20 07:35 | Diagnostic Imaging Report ---
HISTORY: Edema COMPARISON: None TECHNIQUE: Frontal view of the chest. FINDINGS: The lung volumes are mildly low. The cardiac silhouette is mildly prominent, likely related to technique. There is mild central vascular congestion. No large effusion or pneumothorax is seen. No consolidation is seen. The right Port-A-Cath projects over the SVC. IMPRESSION: 1. Mild central vascular congestion, may be accentuated by low lung volumes. Dictated by: Dictated on workstation # [id number]
[2023-08-20 09:18] LABS: BASOPHILS % (AUTO) 0 % (0-10); EOSINOPHILS # (AUTO) 0.2 10^3/uL (0.0-0.3); EOSINOPHILS % (AUTO) 3 % (0-10); HEMATOCRIT 23 % (35-52); LYMPHOCYTES % (AUTO) 15 % (12-44); MEAN CORPUSCULAR HEMOGLOBIN 28 pg (25-34); MEAN CORPUSCULAR HGB CONC 31 g/dL (32-36); MEAN CORPUSCULAR VOLUME 92 fL (80-99); MEAN PLATELET VOLUME 9.8 fL (9.0-12.2); MONOCYTES # (AUTO) 0.7 10^3/uL (0.0-1.0); MONOCYTES % (AUTO) 10 % (0-12); NEUTROPHILS # (AUTO) 5.2 10^3/uL (1.8-7.8); NEUTROPHILS % (AUTO) 72 % (42-75); PLATELET COUNT 211 10^3/uL (130-400); WHITE BLOOD COUNT 7.2 10^3/uL (4.3-11.0)
[2023-08-20 09:23] LABS: ALBUMIN 2.9 GM/DL (3.2-4.5); POTASSIUM 5.1 MMOL/L (3.6-5.0)
[2023-08-20 09:24] LABS: CALCIUM 8.2 MG/DL (8.5-10.1)
[2023-08-20 09:26] LABS: TOTAL PROTEIN 6.8 GM/DL (6.4-8.2)
[2023-08-20 09:27] LABS: BILIRUBIN,TOTAL 0.5 MG/DL (0.1-1.0)
[2023-08-20 09:29] LABS: CREATININE SERUM 1.54 MG/DL (0.60-1.30)
--- NOTE | 2023-08-20 10:11 | Wound Care Assessment ---
Wound Care Assessment Date Seen by Provider: Aug 20, 2023 Time Seen by Provider: 10:06 Chief Complaint Candidal skin infections with weeping lower extremity ulceration and sacral MASD HPI This pleasant 73 year old patient is well known to my outpatient clinic. She is massively obese with well controlled DM2 and a long h/o obesity related lymphedema with recurrent LE ulcerations. She frequently gets superinfections (both bacterial and fungal). On exam today she has circumferential weeping to bilateral LE with cheesy drainage and candidal odor. There are no deep ulcerations. Her sacrum has cheesy discharge as well with evidence of MASD and shearing injury from scooting on transfers. She also has evidence of cutaneous candidal infections in all skin folds. We will agressively treat yeast. I agree with antibiotics to cover for cellulitis as well. Her primary team is also working on treating her chronic refractory anemia (appropriately). Unfortunately, we have counseled Glenda on weight loss many times in the past with no movement in the area. Her recurrent ulcerations have no chance of resolving without reoccurence with her current state of health. Past Medical History: Admits Diabetes Type II, Admits Heart Disease Recreational Drug Use: No Alcohol Use: Denies Use Review of Systems General: Other (super obesity) Cardiovascular: Orthopnea, Paroxysmal Noc. Dyspnea, Edema Neurological: Weakness Exam Vital Signs Date Time Temp Pulse Resp B/P (MAP) Pulse Ox O2 Delivery O2 Flow Rate FiO2 08/20/23 08:00 75 16 126/50 (71) 96 Nasal Cannula 2.00 08/20/23 05:11 36.8 Capillary Refill : Less Than 3 Seconds General Appearance: WD/WN, no apparent distress, obese HEENT: other (normal hearing) Respiratory: other (continuous O2) Extremities: pedal edema, swelling Neurologic/Psychiatric: alert, normal mood/affect, oriented x 3 Skin: rash Skin Problem Location: torso, lower extremities Skin Character: drainage, erythema, rash, thickening Bilateral LE: Circumferential shallow ulceration with weeping and cheesy discharge with foul odor (c/w candidal infection). Massive lymphedema with papillomatosis Sacrum: dusky discoloration with linear shear injury to bilateral buttock c/w MASD and scooting Results Laboratory Tests 08/19/23 22:35: White Blood Count 8.7, Red Blood Count 2.24L, Hemoglobin 6.4*L, Hematocrit 22L, Mean Corpuscular Volume 97, Mean Corpuscular Hemoglobin 29, Mean Corpuscular Hemoglobin Concent 29L, Red Cell Distribution Width 17.0H, Platelet Count 269, Mean Platelet Volume 10.2, Immature Granulocyte % (Auto) 1, Neutrophils (%) (Auto) 70, Lymphocytes (%) (Auto) 17, Monocytes (%) (Auto) 9, Eosinophils (%) (Auto) 3, Basophils (%) (Auto) 0, Neutrophils # (Auto) 6.1, Lymphocytes # (Auto) 1.5, Monocytes # (Auto) 0.8, Eosinophils # (Auto) 0.3, Basophils # (Auto) 0.0, Immature Granulocyte # (Auto) 0.0, Erythrocyte Sedimentation Rate > 140H, Prothrombin Time 14.4, INR Comment 1.1, Activated Partial Thromboplast Time 33, D-Dimer 2.04H, Sodium Level 138, Potassium Level 5.1H, Chloride Level 110H, Carbon Dioxide Level 21, Anion Gap 7, Blood Urea Nitrogen 24H, Creatinine 1.57H, Estimat Glomerular Filtration Rate 35, BUN/Creatinine Ratio 15, Glucose Level 110H, Lactic Acid Level 0.84, Calcium Level 8.8, Corrected Calcium 9.4, Magnesium Level 2.4, Total Bilirubin 0.3, Aspartate Amino Transf (AST/SGOT) 21, Alanine Aminotransferase (ALT/SGPT) 10, Alkaline Phosphatase 64, Troponin I < 0.028, C-Reactive Protein High Sensitivity 3.32H, B-Type Natriuretic Peptide 103.2H, Total Protein 7.6, Albumin 3.3, TSH Cool Testing 1.15 08/19/23 22:45: Total Creatine Kinase 288H 08/19/23 22:47: Influenza Type A (RT-PCR) Not Detected, Influenza Type B (RT-PCR) Not Detected, SARS-CoV-2 RNA (RT-PCR) Not Detected 08/20/23 00:11: Urine Color YELLOW, Urine Clarity CLEAR, Urine pH 5.0, Urine Specific [place] 1.015L, Urine Protein NEGATIVE, Urine Glucose (UA) NEGATIVE, Urine Ketones TRACEH, Urine Nitrite NEGATIVE, Urine Bilirubin NEGATIVE, Urine Urobilinogen 0 .2, Urine Leukocyte Esterase NEGATIVE, Urine RBC (Auto) NEGATIVE, Urine RBC RARE, Urine WBC NONE, Urine Squamous Epithelial Cells 0-2, Urine Crystals PRESENTH, Urine Amorphous Sediment FEW JAY URATESH, Urine Bacteria NEGATIVE, Urine Casts NONE, Urine Mucus NEGATIVE, Urine Culture Indicated CULTURE PENDING 08/20/23 06:18: Glucometer 112H 08/20/23 09:05: White Blood Count 7.2, Red Blood Count 2.47L, Hemoglobin 7.0L, Hematocrit 23L, Mean Corpuscular Volume 92, Mean Corpuscular Hemoglobin 28, Mean Corpuscular Hemoglobin Concent 31L, Red Cell Distribution Width 17.2H, Platelet Count 211, Mean Platelet Volume 9.8, Immature Granulocyte % (Auto) 0, Neutrophils (%) (Auto) 72, Lymphocytes (%) (Auto) 15, Monocytes (%) (Auto) 10, Eosinophils (%) (Auto) 3, Basophils (%) (Auto) 0, Neutrophils # (Auto) 5.2, Lymphocytes # (Auto) 1.0, Monocytes # (Auto) 0.7, Eosinophils # (Auto) 0.2, Basophils # (Auto) 0.0, Immature Granulocyte # (Auto) 0.0, Sodium Level 138, Potassium Level 5.1H, Chloride Level 114H, Carbon Dioxide Level 21, Anion Gap 3L, Blood Urea Nitrogen 21H, Creatinine 1.54H, Estimat Glomerular Filtration Rate 36, BUN/Creatinine Ratio 14, Glucose Level 105, Calcium Level 8.2L, Corrected Calcium 9.1, Total Bilirubin 0.5, Aspartate Amino Transf (AST/SGOT) 21, Alanine Aminotransferase (ALT/SGPT) 10, Alkaline Phosphatase 58, Total Protein 6.8, Albumin 2.9L Assessment/Plan/Dx Assessment: 1. Non-pressure ulcers b/l LE 2. Massive obesity with associated lymphedema 3. Significant cutaneous candidiasis 4. MASD sacrum with shearing injury 5. Chronic refractory anemia 6. DM2 previously well controlled 7. CKD stage 4 8. Generalized weakness Plan: 1. Cleanse with Vashe. Apply miconazole powder and cream bid and leave JENSEN 2. As discussed above 3. Diflucan oral. Miconazole powder and cream accordingly 4. Frequent changes, cream and powder bid with Allevyn BFD 5. defer to primary team 6. Defer to primary team 7. Defer to primary team 8. Defer to primary team ARASH BUENO MD Aug 20, 2023 10:11
[2023-08-20] MEDS ORDERED: HYPOCHLOROUS ACID/NaCl WOUND SOLN 250 ML IR SCH (10:15)
[2023-08-20] MEDS ORDERED: GABA-486 PO (11:12)
[2023-08-20] MEDS ORDERED: FURO40TA4 PO (11:28)
--- NOTE | 2023-08-20 12:47 | History & Physical-Hospitalist ---
History of Present Illness HPI/Chief Complaint Pt is a 73yo with PMH HTN, T2DM, HLD, CKD, lymphedema, decubitus ulcer, morbid obesity who presented to the ER due to weakness and leg pain. She was admitted here earlier this month due to similar was found to be quite anemic and have cellulitis of her lower extremities. She was discharged home and has been having home health but per Dr. Lezama did not make her follow-up appointment with her and per patient has not even been able to get out of bed for the past 3 to 4 days due to her pain. She has had to call the lean manager for assistance and if she could not get up yesterday to go to the bathroom so called them again. She relates it all due to pain in her legs. In the emergency room she was found to weeping erythematous legs and was started on IV antibiotics. She was also found to be anemic again. This morning she reports feeling better now that she has gotten some rest. Source: patient Date Seen 08/20/23 Time Seen by a Provider: 12:16 Attending Physician Shraddha Lezama MD PCP Admitting Physician: Catarina Azar DO Attending Physician: Catarina Azar DO Referring Physician Date of Admission Aug 20, 2023 at 00:44 Home Medications & Allergies Home Medications Reviewed patient Home Medication Reconciliation performed by pharmacy medication reconciliations home service technician and/or nursing. Patients Allergies have been reviewed. Allergies Allergies Coded Allergies tramadol (Verified Allergy, Mild, Abdominal Pain, 08/07/23) NAUSEA Past Fbzsvis-Ihuwaw-Upgtoj Hx Patient Social History Tobacco Use?: No Use of E-Cig and/or Vaping dev: No Substance use?: No Alcohol Use?: No Pt feels they are or have been: No Immunizations Up To Date Date of Influenza Vaccine: Jul 10, 2023 First/Initial COVID19 Vaccinat: 3 SHOTS Second COVID19 Vaccination Tomás: 3 SHOTS Tetanus Booster (TDap): Unknown Date of Pneumonia Vaccine: Jun 20, 2012 Current Status status: No status: No Advance Directives: No Communicates: Verbally Primary Language: Slovenian Preferred Spoken Language: Slovenian Is interpretation needed?: No Sensory deficits: Vision impairment Family Medical History Reviewed Nursing Family Hx No Pertinent Family Hx Review of Systems Constitutional: see HPI Physical Exam Physical Exam Vital Signs Vital Signs - First Documented 08/19/23 08/20/23 22:23 05:38 Temp 37.7 Pulse 94 Resp 20 Pulse Ox 98 O2 Delivery Room Air O2 Flow Rate 2.00 Capillary Refill : Less Than 3 Seconds Height, Weight, BMI Height: 5'6.00" Weight: 285lbs. 0.0oz. 129.568441cx; 65.53 BMI Method: General Appearance: No Apparent Distress, Chronically ill, Obese Respiratory: Lungs Clear, No Respiratory Distress Cardiovascular: Regular Rate, Rhythm, No Murmur Gastrointestinal: Normal Bowel Sounds, Soft Extremity: Pedal Edema, Swelling (lymphedema), Other (both lower extremities with erythema and weaping wounds) Neurologic/Psychiatric: Alert, Oriented x3 Results Results/Procedures Labs Laboratory Tests 08/19/23 22:35 08/20/23 09:05 08/21/23 05:22 Patient resulted labs reviewed. Imaging: Reviewed Imaging Report Imaging [facility]. [place], [place] NAME: GEORGESEAN TAMAYO [facility] REC#: [id number] PT STATUS: ADM IN : 1950 PHYSICIAN: SUSANNE HERNANDEZ DO ADMIT DATE: 08/20/23/ICU Signed Date of Exam:08/19/23 CHEST 1 VIEW, AP/PA ONLY HISTORY: Edema COMPARISON: None TECHNIQUE: Frontal view of the chest. FINDINGS: The lung volumes are mildly low. The cardiac silhouette is mildly prominent, likely related to technique. There is mild central vascular congestion. No large effusion or pneumothorax is seen. No consolidation is seen. The right Port-A-Cath projects over the SVC. IMPRESSION: 1. Mild central vascular congestion, may be accentuated by low lung volumes. Dictated by: Dictated on workstation # [id number] Dict: 08/20/23 0731 Trans: 08/20/23 1051 [facility] [id number] Interpreted by: YUE GRANDA MD Electronically signed by: YUE GRANDA MD 08/20/23 1051 Assessment/Plan Admission Diagnosis Anemia Admission Status: Inpatient Order (span 2 midnights) Reason for Inpatient Admission: see below Assessment and Plan Symptomatic anemia Anemia of chronic disease Chronic kidney disease, stage 4 Hgb 6.4 on arrival s/p 2 units PRBC FOBT positive earlier this month Spoke with Dr Orellana who will see her while inpatient Renal function improved from last visit (1.5 today from ~2) Chronic lymphedema Decubitus ulcer Verito intertrigo Wound care consulted, spoke with Dr Salmon, appreciate assistance on wound management Vanc and Zosyn Cultures pending Diflucan Miconazole powder T2DM Sliding scale insulin Super super obesity Debility PT/OT HTN HLD Resume home meds when med rec done DVT prophylaxis: RAAD Vicente MD Aug 20, 2023 12:47
[2023-08-20] MEDS ORDERED: FUROSEMIDE 40 MG TABLET PO SCH (13:00)
[2023-08-20] MEDS: ENOXAPARIN 40 MG/0.4 ML SYRINGE SQ SCH (13:39)
[2023-08-20] MEDS: GABAPENTIN 100 MG CAPSULE PO SCH ×2 (13:39→20:06)
[2023-08-20] MEDS: FUROSEMIDE 40 MG TABLET PO SCH (13:39)
--- NOTE | 2023-08-20 13:46 | Consultation - Surgery ---
History of Present Illness History of Present Illness Patient Consulted On(robbin/time) 08/20/23 13:41 Time Seen by Provider: 10:45 History of Present Illness Surgery asked to consult regarding Anemia; need for endoscopy. HPI per ED: PT ARRIVES VIA EMS FROM HOME, WITH MULTIPLE FIREMEN FOR LIFT ASSIST--REQUIRES 6 + PERSON ASSIST FOR TRANSFER FROM EMS COT TO ER COT, PT LIVES AT HOME ALONE. PT HAS NOT BEEN ABLE TO GET OUT OF HER CHAIR FOR 3-4 DAYS, C/O BILATERAL FOOT PAIN AND CHRONIC LEG SWELLING AND CHRONIC LEG WOUNDS, WELL SORES ON HER BUTTOCKS. PT HAS NOT TAKEN ANY OF HER MEDICATIONS FOR 3-4 DAYS BECAUSE SHE COULD NOT GET OUT OF HER CHAIR NO INCREASE IN CHRONIC SHORTNESS OF BREATH, STATES HER HEART HAS BEEN POUNDING AT TIMES. PT WAS ADMITTED 07/29-07/30 FOR ANEMIA AND RECEIVED BLOOD TRANSFUSIONS. SHE STATES SHE IS SUPPOSED TO BE HAVING AN UPPER AND LOWER ENDOSCOPY AT SOME TIME FOR FURTHER EVALUATION OF THIS PROBLEM, SHE WAS SEEN HERE 08/07/23 FOR FALL--NO INJURIES NOTED. PT HAS CHRONIC LEG WOUNDS, AND CHRONIC BUTTOCKS/SACRAL WOUNDS SHE HAS CHRONIC LEG SWELLING. SHE IS NON INSULINT When I saw pt she was lying in her bed comfortably, had received 2 units of PRBCs. This pt is known to me; I actually saw her during her last visit and set her up to see me as an outpt. She was in my office on and was set up for endoscopy in two weeks. She states not much has changed since I saw her. She was weak, but feeling better after transfusion. Allergies and Home Medications Allergies Coded Allergies: tramadol (Verified Allergy, Mild, Abdominal Pain, 08/07/23) NAUSEA Patient Home Medication List Home Medication List Reviewed: Yes Amlodipine Besylate (Amlodipine Besylate) 5 Mg Tablet, 5 MG PO DAILY, (Reported) Entered as Reported by: AGUILA MACK on 10/20/17913 Last Action: Continued Ascorbate Calcium (Vitamin C) 500 Mg Tablet, 500 MG PO DAILY, (Reported) Entered as Reported by: AGUILA MACK on 10/20/17913 Last Action: Held Aspirin (Aspirin EC) 81 Mg Tablet., 81 MG PO HS, (Reported) Entered as Reported by: AGUILA MACK on 10/20/17913 Last Action: Continued Cholecalciferol (Vitamin D3) (Vitamin D3) 25 Mcg (1000 Unit) Tablet, 25 MCG PO DAILY, (Reported) Entered as Reported by: LINDA MURCIA on 07/29/231624 Last Action: Continued Cyanocobalamin (Vitamin B-12) (Vitamin B-12) 2,000 Mcg Tablet.er, 2,000 MCG PO DAILY, (Reported) Entered as Reported by: AGUILA MACK on 10/20/17913 Last Action: Held Furosemide (Furosemide) 40 Mg Tablet, 40 MG PO MO,WE,FR, (Reported) Entered as Reported by: LINDA MURCIA on 08/20/23 112 Last Action: Continued Gabapentin (Gabapentin) 100 Mg Capsule, 100 MG PO TID, (Reported) Entered as Reported by: LINDA MURCIA on 08/20/23 111 Last Action: Continued Slaughters-3/Dha/Epa/Fish Oil (Slaughters-3 Fish Oil 1,000 mg Sfgl) 1,000 Mg (120 Mg-180 Mg) Capsule, 2,000 MG PO DAILY, (Reported) Entered as Reported by: AGUILA MACK on 10/20/17913 Last Action: Held Slaughters-3/Dha/Epa/Fish Oil (Slaughters-3 Fish Oil 1,000 mg Sfgl) 1,000 Mg (120 Mg-180 Mg) Capsule, 1,000 MG PO HS, (Reported) Entered as Reported by: AGUILA MACK on 10/20/17913 Last Action: Held Pioglitazone HCl (Pioglitazone HCl) 45 Mg Tablet, 45 MG PO DAILY, (Reported) Entered as Reported by: LINDA MURCIA on 07/29/231624 Last Action: Converted Pravastatin Sodium (Pravastatin Sodium) 40 Mg Tablet, 40 MG PO HS, (Reported) Entered as Reported by: AGUILA MACK on 10/20/17913 Last Action: Converted Discontinued Medications Doxycycline Hyclate (Doxycycline Hyclate) 100 Mg Tablet, 100 MG PO BID@ Discontinued Reason: No Longer Taking Prescribed by: JAYLENE JACKSON on 07/30/23 1103 Last Action: Discontinued Ferrous Sulfate (Iron) 325 Mg (65 Mg Iron) Tablet, 650 MG PO DAILY, (Reported) Discontinued Reason: Duplicate Order Entered as Reported by: LINDA MURCIA on 11/9/23 1625 Last Action: Discontinued Fluconazole (Fluconazole) 100 Mg Tablet, 100 MG PO DAILY Discontinued Reason: No Longer Taking Prescribed by: JAYLENE JACKSON on 07/30/231102 Last Action: Discontinued Miconazole Nitrate (Lotrimin AF) 2 % Powder, 1 GM TOP BID Discontinued Reason: No Longer Taking Prescribed by: JAYLENE JACKSON on 07/30/231102 Last Action: Discontinued Past Cpbmupa-Nakyqk-Xtfvom Hx Patient Social History Smoking Status: Former Smoker (quit 16 yrs ago) Recent Hopitalizations: No Alcohol Use?: No Immunizations Up To Date Tetanus Booster (TDap): Unknown Date of Pneumonia Vaccine: Jun 20, 2012 Date of Influenza Vaccine: Jul 10, 2023 Surgeries History of Surgeries: Yes (toenail surgery, Cataract surgery) Respiratory History of Respiratory Disorde: Yes Respiratory Disorders: Sleep Apnea, COPD Cardiovascular History of Cardiac Disorders: Yes Cardiac Disorders: Chronic Edema/Swelling, Peripheral Vascular Neurological History of Neurological Disord: Yes Neurological Disorders: Neuropathy Genitourinary History of Genitourinary Disor: Yes Genitourinary Disorders: Renal Failure (chronic) Gastrointestinal History of Gastrointestinal Di: Yes Gastrointestinal Disorders: Gastrointestinal Bleed Musculoskeletal History of Musculoskeletal Dis: Yes Musculoskeletal Disorders: Degenerate Disk Disease, Arthritis, Chronic Back Pain Endocrine History of Endocrine Disorders: Yes Endocrine Disorders: Diabetes, Non-Insulin dep HEENT History of HEENT Disorders: Yes HEENT Disorders: Cataract Loss of Vision: Bilateral Cancer History of Cancer: No Psychosocial History of Psychiatric Problem: No Integumentary History of Skin or Integumenta: Yes Family Medical History Significant Family History: Cancer (Father), Hypertension (mother), Stroke (mother) Review of Systems-General Constitutional: malaise, weakness EENTM: blurred vision; No eye pain, No epistaxis Respiratory: cough, dyspnea on exertion; No hemoptysis; short of breath Cardiovascular: No chest pain; edema Gastrointestinal: No abdominal pain, No hematemesis, No jaundice; melena Genitourinary: No dysuria, No hematuria Musculoskeletal: back pain, joint pain, muscle pain, muscle stiffness Skin: change in color; No change in hair/nails Psychiatric/Neurological: Denies Seizure, Denies Tremors Physical Exam-General Problems Physical Exam Vital Signs Vital Signs - First Documented 08/19/23 08/20/23 22:23 05:38 Temp 37.7 Pulse 94 Resp 20 Pulse Ox 98 O2 Delivery Room Air O2 Flow Rate 2.00 Capillary Refill : Less Than 3 Seconds General Appearance: obese (super morbidly) Eyes: Bilateral Eye PERRL, Bilateral Eye EOMI HEENT: pharynx normal; No scleral icterus (R), No scleral icterus (L) Neck: non-tender, supple Respiratory: no respiratory distress, no accessory muscle use, decreased breath sounds Cardiovascular: regular rate, rhythm, no murmur Gastrointestinal: non tender, soft Extremities: no calf tenderness, other (chronic venous stasis changes, thickened skin, and ulcers) Neurologic/Psychiatric: alert, normal mood/affect, oriented x 3 Skin: warm/dry, pallor Lymphatic: no adenopathy (neck or axilla) Data Review Labs Laboratory Tests 08/19/23 22:35: White Blood Count 8.7, Red Blood Count 2.24L, Hemoglobin 6.4*L, Hematocrit 22L, Mean Corpuscular Volume 97, Mean Corpuscular Hemoglobin 29, Mean Corpuscular Hem oglobin Concent 29L, Red Cell Distribution Width 17.0H, Platelet Count 269, Mean Platelet Volume 10.2, Immature Granulocyte % (Auto) 1, Neutrophils (%) (Auto) 70, Lymphocytes (%) (Auto) 17, Monocytes (%) (Auto) 9, Eosinophils (%) (Auto) 3, Basophils (%) (Auto) 0, Neutrophils # (Auto) 6.1, Lymphocytes # (Auto) 1.5, Monocytes # (Auto) 0.8, Eosinophils # (Auto) 0.3, Basophils # (Auto) 0.0, Immature Granulocyte # (Auto) 0.0, Erythrocyte Sedimentation Rate > 140H, Prothrombin Time 14.4, INR Comment 1.1, Activated Partial Thromboplast Time 33, D-Dimer 2.04H, Sodium Level 138, Potassium Level 5.1H, Chloride Level 110H, Carbon Dioxide Level 21, Anion Gap 7, Blood Urea Nitrogen 24H, Creatinine 1.57H, Estimat Glomerular Filtration Rate 35, BUN/Creatinine Ratio 15, Glucose Level 110H, Lactic Acid Level 0.84, Calcium Level 8.8, Corrected Calcium 9.4, Magnesium Level 2.4, Total Bilirubin 0.3, Aspartate Amino Transf (AST/SGOT) 21, Alanine Aminotransferase (ALT/SGPT) 10, Alkaline Phosphatase 64, Troponin I < 0.028, C-Reactive Protein High Sensitivity 3.32H, B-Type Natriuretic Peptide 103.2H, Total Protein 7.6, Albumin 3.3, TSH [place] Testing 1.15 08/19/23 22:45: Total Creatine Kinase 288H 08/19/23 22:47: Influenza Type A (RT-PCR) Not Detected, Influenza Type B (RT-PCR) Not Detected, SARS-CoV-2 RNA (RT-PCR) Not Detected 08/20/23 00:11: Urine Color YELLOW, Urine Clarity CLEAR, Urine pH 5.0, Urine Specific [place] 1.015L, Urine Protein NEGATIVE, Urine Glucose (UA) NEGATIVE, Urine Ketones T RACEH, Urine Nitrite NEGATIVE, Urine Bilirubin NEGATIVE, Urine Urobilinogen 0.2, Urine Leukocyte Esterase NEGATIVE, Urine RBC (Auto) NEGATIVE, Urine RBC RARE, Urine WBC NONE, Urine Squamous Epithelial Cells 0-2, Urine Crystals PRESENTH, Urine Amorphous Sediment FEW JAY URATESH, Urine Bacteria NEGATIVE, Urine Casts NONE, Urine Mucus NEGATIVE, Urine Culture Indicated CULTURE PENDING 08/20/23 06:18: Glucometer 112H 08/20/23 09:05: White Blood Count 7.2, Red Blood Count 2.47L, Hemoglobin 7.0L, Hematocrit 23L, Mean Corpuscular Volume 92, Mean Corpuscular Hemoglobin 28, Mean Corpuscular Hemoglobin Concent 31L, Red Cell Distribution Width 17.2H, Platelet Count 211, Mean Platelet Volume 9.8, Immature Granulocyte % (Auto) 0, Neutrophils (%) (Auto) 72, Lymphocytes (%) (Auto) 15, Monocytes (%) (Auto) 10, Eosinophils (%) (Auto) 3, Basophils (%) (Auto) 0, Neutrophils # (Auto) 5.2, Lymphocytes # (Auto) 1.0, Monocytes # (Auto) 0.7, Eosinophils # (Auto) 0.2, Basophils # (Auto) 0.0, Immature Granulocyte # (Auto) 0.0, Sodium Level 138, Potassium Level 5.1H, Chloride Level 114H, Carbon Dioxide Level 21, Anion Gap 3L, Blood Urea Nitrogen 21H, Creatinine 1.54H, Estimat Glomerular Filtration Rate 36, BUN/Creatinine Ratio 14, Glucose Level 105, Calcium Level 8.2L, Corrected Calcium 9.1, Total Bilirubin 0.5, Aspartate Amino Transf (AST/SGOT) 21, Alanine Aminotransferase (ALT/SGPT) 10, Alkaline Phosphatase 58, Total Creatine Kinase 520H, Total Protein 6.8, Albumin 2.9L 08/20/23 11:23: Glucometer 112H Microbiology 08/20/23 Urine Culture - Preliminary, Resulted NO GROWTH 08/19/23 Gram Stain, Resulted Pending 08/19/23 Wound Culture - Preliminary, Resulted Culture In Progress Radiology Date of Exam:08/19/23 CHEST 1 VIEW, AP/PA ONLY HISTORY: Edema COMPARISON: None TECHNIQUE: Frontal view of the chest. FINDINGS: The lung volumes are mildly low. The cardiac silhouette is mildly prominent, likely related to technique. There is mild central vascular congestion. No large effusion or pneumothorax is seen. No consolidation is seen. The right Port-A-Cath projects over the SVC. IMPRESSION: 1. Mild central vascular congestion, may be accentuated by low lung volumes. Dictated by: Dictated on workstation # [id number] Dict: 08/20/23 0731 Trans: 08/20/23 1051 [facility] [id number] Interpreted by: YUE GRANDA MD Electronically signed by: YUE GRANDA MD 08/20/23 1051 Assessment/Plan Assessment/Plan Assessment/Plan Anemia of unknown origin Morbid Obesity DM Chronic Leg ulcers Hyperkalemia Hyperchloremia Pt has received a transfusion and Hg came up, plus she feels better. I spoke wi th Dr. Neil regarding her case; unfortunately she will be here through the weekend. I think therefore that it would be best to just set up her EGD and Colonoscopy for Wednesday. Will get consent and prep her on Wednesday. Maximize medical management to bring down Electrolyte abnormalities and monitor hemoglobin in case she needs another transfusion. Local wound care on legs and can consult wound care team. SUNIL GUTIERREZ DO Aug 20, 2023 13:46
--- NOTE | 2023-08-20 14:04 | Physical Therapy Evaluation ---
PT Evaluation-General Medical Diagnosis Admission Date Aug 20, 2023 at 00:44 Medical Diagnosis: anemia/bilateral LE cellulitis Onset Date: Aug 20, 2023 Therapy Diagnosis Therapy Diagnosis: impaired mobility/generalized weakness Height/Weight Height (Feet): 5 Height (Inches): 6.00 Weight (Pounds): 285 Weight (Ounces): 0.0 Precautions Precautions/Isolations: Fall Prevention, Standard Precautions Referral Physician: Jolynn Reason for Referral: Evaluation/Treatment Medical History Pertinent Medical History: DM, HTN Additional Medical History super obese Current History EMs secondary to foot pain/falls Reviewed History: Yes Social History Home: Single Level Current Living Status: Alone Prior Prior Level of Function SCALE: Activities may be completed with or without assistive devices. 7-Xtbrvmzjsp-keflbdi completes the activity by him/herself with no assistance from a helper. 5-Set-up or Clean-up Assistance-helper sets up or cleans up; patient completes activity. [place] assists only prior to or following the activity. 4-Supervision or Touching Assistance-helper provides verbal cues and/or touching/steadying and/or contact guard assistance as patient completes activity. Assistance may be provided throughout the activity or intermittently. 3-Partial/Moderate Assistance-helper does LESS THAN HALF the effort. [place] lifts, holds or supports trunk or limbs, but provides less than half the effort. 2-Substantial/Maximal Assistance-helper does MORE THAN HALF the effort. [place] lifts or holds trunk or limbs and provides more than half the effort. 1-Nhyxejumy-qbkcbn does ALL the effort. Patient does none of the effort to complete the activity. Or, the assistance of 2 or more helpers is required for the patient to complete the activity. If activity was not attempted, code reason: 7-Patient Refused. 9-Not Applicable-not attempted and the patient did not perform the activity before the current illness, exacerbation or injury. 10-Not Attempted due to Environmental Limitations-(lack of equipment, weather restraints, etc.). 88-Not Attempted due to Medical Conditions or Safety Concerns. Bed Mobility: 6 Transfers (B,C,W/C): 6 Gait: 6 Stairs: 9 Wheelchair Mobility: 6 Indoor Mobility (Ambulation): Independent Prior Devices Use: Manual wheelchair, Mechanical lift, Walker PT Evaluation-Current Subjective Patient agrees to PT. Objective Patient Orientation: Normal For Age Attachments: Central Line, Oxygen, Pichardo Catheter ROM/Strength ROM Lower Extremities bilateral LE limited due to size/edema Strength Lower Extremities 3-/5 grossly bilateral LE all planes Integumentary/Posture Integumentary refer to nursing notes Bladder Incontinence: Pichardo Cath Neuromuscular (Tone, Coordination, Reflexes) grossly intact Sensory Vision: Wears Glasses Hearing: Functional Transfers Roll Left to Right (QC): 1 (x 2) Sit to Lying (QC): 1 (x2) Lying to Sitting/Side of Bed(Q: 2 Balance Sitting Static: Fair Sitting Dynamic: Fair Assessment/Needs Patient will benefit from skilled PT to address functional strength and mobility to improve current LOF. Patient currently limited by edema bilateral LE and super obesity. Rehab Potential: Guarded PT Custodial Goals Custodial Goals PT Baseball Winder Goals Time Frame: Sep 18, 2023 Roll Left & Right (QC): 4 Sit to Lying (QC): 4 Lying-Sitting on Side/Bed(QC): 4 Sit to Stand (QC): 3 Chair/Rpu-nb-Jqcub Xfer(QC): 3 Toilet Transfer (QC): 3 Walk 10 feet (QC): 3 Walk 50ft with 2 Turns (QC): 3 PT Plan Problem List Problem List: Activity Tolerance, Functional Strength, Safety, Balance, Gait, Transfer, Bed Mobility, ROM Treatment/Plan Treatment Plan: Continue Plan of Care Treatment Plan: Bed Mobility, Education, Functional Activity Magaly, Functional Strength, Gait, Safety, Therapeutic Exercise, Transfers Treatment Duration: Sep 18, 2023 Frequency: 5 times per week Estimated Hrs Per Day: .25 hour per day Time Time In: 1305 Time Out: 1338 DATE: Aug 20, 2023 Total Billed Treatment Time: 33 Total Billed Treatment 1 visit EVModC 15 min FA 18 min EMI NG PT Aug 20, 2023 14:04
--- NOTE | 2023-08-20 15:04 | Occupational Therapy Eval ---
OT Evaluation-General/PLF Medical Diagnosis Admission Date Aug 20, 2023 at 00:44 Medical Diagnosis: anemia/bilateral LE cellulitis Onset Date: Aug 20, 2023 Therapy Diagnosis Therapy Diagnosis: WEAKNESS Height/Weight Height (Feet): 5 Height (Inches): 6.00 Weight (Pounds): 285 Weight (Ounces): 0.0 Precautions Precautions/Isolations: Fall Prevention, Standard Precautions Weight Bear Status Weight Bearing Restriction: Weight Bearing/Tolerated Location Restriction: LE Bilateral Referral Physician: Jolynn Referral Reason: Evaluation/Treatment Medical History Pertinent Medical History: DM, HTN Reviewed History: Yes Social History Home: Single Level Current Living Status: Alone ADL-Prior Level of Function SCALE: Activities may be completed with or without assistive devices. 0-Rebzfhcgwf-gdnfhuq completes the activity by him/herself with no assistance from a helper. 5-Set-up or Clean-up Assistance-helper sets up or cleans up; patient completes activity. [place] assists only prior to or following the activity. 4-Supervision or Touching Assistance-helper provides verbal cues and/or touching/steadying and/or contact guard assistance as patient completes activity. Assistance may be provided throughout the activity or intermittently. 3-Partial/Moderate Assistance-helper does LESS THAN HALF the effort. [place]ton lifts, holds or supports trunk or limbs, but provides less than half the effort. 2-Substantial/Maximal Assistance-helper does MORE THAN HALF the effort. [place] lifts or holds trunk or limbs and provides more than half the effort. 6-Moowxbkaa-palodb does ALL the effort. Patient does none of the effort to complete the activity. Or, the assistance of 2 or more helpers is required for the patient to complete the activity. If activity was not attempted, code reason: 7-Patient Refused. 9-Not Applicable-not attempted and the patient did not perform the activity before the current illness, exacerbation or injury. 10-Not Attempted due to Environmental Limitations-(lack of equipment, weather restraints, etc.). 88-Not Attempted due to Medical Conditions or Safety Concerns. ADL PLOF Comments DAUGHTER PRESENT IN ROOM, REPORTS PATIENT SLEEPS IN RECLINER NO LIFT CHAIR. AMBULATED W/O DEVICE IN HOME USES WC ON TRANSPORTATION APPOINTMENTS Self Care: Needed Some Help Functional Cognition: Independent DME/Equipment: Bedside Commode Drive Self: No OT Current Status Subjective AGREES TO PARTICIPATE FEELS SHE WILL BE UNSUCCESSFUL Mental Status/Objective Patient Orientation: Person, Place, Time, Situation Attachments: IV (BUE, LUE NEEDLE NOT PRESENT, BLOOD ON BLANKET), Oxygen Current Upper Extremity ROM EXCESSIVE TISSUE LIMITS ROM Upper Extremity Coordination FAIR+ Upper Extremity Sensation FAIR Upper Extremity Strength +3/5 SITS EOB 7 MINUTES, MAX X2 TO TRANSFER SIT TO SUPINE. ADL-Treatment Eating (QC): 6 Oral Hygiene (QC): 5 Shower/Bathe Self (QC): 7 Upper Body Dressing (QC): 3 Lower Body Dressing (QC): 1 On/Off Footwear (QC): 1 Toileting Hygiene (QC): 1 Education OT Patient Education: Correct positioning, Instructions to caregiver, Modified ADL techniques, Progress toward Goal/Update tx plan, Purpose of tx/functional activities, Reviewed precautions, Rehab process, Safety issues, Transfer techniques Teaching Recipient: Patient, Family Teaching Methods: Demonstration, Discussion Response to Teaching: Reinforcement Needed OT Parole Director Goals Parole Director Goals Eating (QC): 6 Oral Hygiene (QC): 6 Toileting Hygiene (QC): 4 Shower/Bathe Self (QC): 4 Upper Body Dressing (QC): 4 Lower Body Dressing (QC): 4 On/Off Footwear (QC): 4 1=Demonstrate adherence to instructed precautions during ADL tasks. 2=Patient will verbalize/demonstrate understanding of assistive devices/modifications for ADL. 3=Patient will improve strength/tolerance for activity to enable patient to perform ADL's. OT Education/Plan Problem List/Assessment Assessment: Decreased Activ Tolerance, Decreased UE Strength, Dependent Transfers, Impaired Coordination, Impaired Funct Balance, Impaired Self-Care Skills Discharge Recommendations Plan/Recommendations: Continue POC Treatment Plan/Plan of Care Treatment,Training & Education: Yes Patient would benefit from OT for education, treatment and training to promote independence in ADL's, mobility, safety and/or upper extremity function for ADL's. Plan of Care: ADL Retraining, Functional Mobility, Group Exercise/Act as Ind, UE Funct Exercise/Act Treatment Duration: Aug 27, 2023 Frequency: 3 times per week (3-5 TIMES PER WEEK) Estimated Hrs Per Day: .25 hour per day Agreement: Yes Rehab Potential: Guarded Time Start Time: 13:01 Stop Time: 13:23 DATE: Aug 20, 2023 Total Time Billed (hr/min): 22 Billed Treatment Time EVM22 MIN PANKAJ ARGUETA OT Aug 20, 2023 15:03
[2023-08-20] MEDS: ASPIRIN enteric coated 81MG TABLET PO SCH (20:06)
[2023-08-20] MEDS: MICONAZOLE 2% CREAM 30 GM TP SCH (20:07)
[2023-08-20] MEDS: MICONAZOLE 2% POWDER 90 GM TOP SCH (20:07)
[2023-08-20] MEDS ORDERED: NON-FORMULARY MEDICATION 1 EA EA (Pravastatin Sodium 40 MG) PO SCH (21:00)
[2023-08-21] VITALS (10 sets, daily range): BP systolic 116–147; BP diastolic 58–82
[2023-08-21] MEDS: inSUlin ASPART 1 UNIT/0.01 ML (PER UNIT) SC SCH ×4 (04:41→20:41)
[2023-08-21] MEDS: PIPERACILLIN/Tazobactam 4.5 GM in NS (IVPB) 100 ML 100 ML IV SCH ×3 (05:30→21:35)
[2023-08-21] MEDS: PIOGLITAZONE 30MG TABLET PO SCH (05:31)
[2023-08-21 05:42] LABS: BASOPHILS % (AUTO) 0 % (0-10); EOSINOPHILS # (AUTO) 0.3 10^3/uL (0.0-0.3); EOSINOPHILS % (AUTO) 4 % (0-10); HEMATOCRIT 23 % (35-52); LYMPHOCYTES # (AUTO) 1.3 10^3/uL (1.0-4.0); LYMPHOCYTES % (AUTO) 17 % (12-44); MEAN CORPUSCULAR HEMOGLOBIN 28 pg (25-34); MEAN CORPUSCULAR HGB CONC 30 g/dL (32-36); MEAN CORPUSCULAR VOLUME 93 fL (80-99); MEAN PLATELET VOLUME 9.8 fL (9.0-12.2); MONOCYTES # (AUTO) 0.7 10^3/uL (0.0-1.0); MONOCYTES % (AUTO) 10 % (0-12); NEUTROPHILS # (AUTO) 5.1 10^3/uL (1.8-7.8); NEUTROPHILS % (AUTO) 69 % (42-75); PLATELET COUNT 192 10^3/uL (130-400); WHITE BLOOD COUNT 7.5 10^3/uL (4.3-11.0)
[2023-08-21 05:48] LABS: HEMOGLOBIN 6.9 g/dL (11.5-16.0)
[2023-08-21 05:49] LABS: ALBUMIN 2.7 GM/DL (3.2-4.5)
[2023-08-21 05:50] LABS: POTASSIUM 4.8 MMOL/L (3.6-5.0)
[2023-08-21 05:51] LABS: CALCIUM 8.1 MG/DL (8.5-10.1)
[2023-08-21 05:52] LABS: TOTAL PROTEIN 6.5 GM/DL (6.4-8.2)
[2023-08-21 05:54] LABS: BILIRUBIN,TOTAL 0.3 MG/DL (0.1-1.0)
[2023-08-21 05:56] LABS: CREATININE SERUM 1.8 MG/DL (0.60-1.30)
[2023-08-21] MEDS ORDERED: NS IV 500 ML 500 ML IV PRN (06:15)
[2023-08-21] MEDS ORDERED: NON-FORMULARY MEDICATION 1 EA EA (Pioglitazone HCl 45 MG) PO SCH (09:00)
[2023-08-21] MEDS: GABAPENTIN 100 MG CAPSULE PO SCH ×3 (09:22→21:34)
[2023-08-21] MEDS: VITAMIN D3 25 MCG (1,000 UNITS) TABLET PO SCH (09:22)
[2023-08-21] MEDS: amLODIPine 5 MG TABLET PO SCH (09:22)
[2023-08-21] MEDS: MICONAZOLE 2% POWDER 90 GM TOP SCH ×2 (09:23→21:35)
[2023-08-21] MEDS: MICONAZOLE 2% CREAM 30 GM TP SCH ×2 (09:23→21:34)
--- NOTE | 2023-08-21 10:12 | Progress Note - Surgery ---
ANTON CURTIS 08/21/23 1012: Subjective Date Seen by a Provider: Aug 21, 2023 Subjective/Events-last exam Glenda reports she is doing well. She states she was able to sleep well overnight and has no pain or acute concerns. She reports some fatigue and tiredness but thinks it is due to her low iron. Her hemoglobin dropped from 7.0 yesterday to 6.9 this morning, so she is receiving another unit of PRBC's this morning and is requesting some IV iron. Review of Systems General: No Chills; Fatigue HEENT: No Head Aches, No Visual Changes Pulmonary: No Dyspnea, No Cough Cardiovascular: No: Chest Pain, Palpitations Gastrointestinal: No: Nausea, Vomiting Neurological: No: Weakness, Confusion Focused Exam Lactate Level 08/19/23 22:35: Lactic Acid Level 0.84 Time of Focused Exam: 23:25 Objective Exam Vital Signs Date Time Temp Pulse Resp B/P (MAP) Pulse Ox O2 Delivery O2 Flow Rate FiO2 08/21/23 10:02 36.0 74 18 124/58 97 Nasal Cannula 2.00 08/21/23 09:38 36.1 74 20 116/72 96 Room Air 08/21/23 08:55 Nasal Cannula 2.00 08/21/23 07:45 36.6 69 18 121/70 (87) 98 Nasal Cannula 2.00 08/21/23 06:07 Nasal Cannula 2.00 08/21/23 03:28 37.0 70 16 147/62 (90) 98 Nasal Cannula 2.00 2.00 08/21/23 00:10 37.6 08/20/23 23:25 38.0 83 16 149/70 (96) 97 Nasal Cannula 2.00 2.00 08/20/23 20:22 Nasal Cannula 2.00 08/20/23 19:45 37.5 82 20 107/58 (74) 95 Room Air 08/20/23 15:31 37.5 74 18 144/70 (94) 96 Nasal Cannula 2.00 08/20/23 13:00 82 08/20/23 12:03 37.2 08/20/23 12:00 81 25 138/50 (86) 95 Nasal Cannula 2.00 I & O 08/21/23 06:59 Intake Total 1570 ml Output Total 1825 ml Balance -255 ml Capillary Refill : Less Than 3 Seconds General Appearance: No Apparent Distress, Obese (MORBIDLY OBESE) HEENT: PERRL/EOMI, Pharynx Normal Neck: Normal Inspection, Non Tender, Supple Respiratory: Lungs Clear, No Accessory Muscle Use, No Respiratory Distress Cardiovascular: Regular Rate, Rhythm, No Murmur Gastrointestinal: non tender, soft Extremity: No Calf Tenderness, Other (thick skin on feet) Neurologic/Psychiatric: Alert, Oriented x3 Skin: Warm/Dry, Other (thickened skin on feet) Results Lab Laboratory Tests 08/20/23 11:23: Glucometer 112H 08/20/23 15:18: Glucometer 104 08/20/23 20:02: Glucometer 136H 08/21/23 04:37: Glucometer 90 08/21/23 05:22: White Blood Count 7.5, Red Blood Count 2.44L, Hemoglobin 6.9*L, Hematocrit 23L, Mean Corpuscular Volume 93, Mean Corpuscular Hemoglobin 28, Mean Corpuscular Hemoglobin Concent 30L, Red Cell Distribution Width 17.2H, Platelet Count 192, Mean Platelet Volume 9.8, Immature Granulocyte % (Auto) 1, Neutrophils (%) (Auto) 69, Lymphocytes (%) (Auto) 17, Monocytes (%) (Auto) 10, Eosinophils (%) (Auto) 4, Basophils (%) (Auto) 0, Neutrophils # (Auto) 5.1, Lymphocytes # (Auto) 1.3, Monocytes # (Auto) 0.7, Eosinophils # (Auto) 0.3, Basophils # (Auto) 0.0, Immature Granulocyte # (Auto) 0.0, Sodium Level 138, Potassium Level 4.8, Ch loride Level 112H, Carbon Dioxide Level 22, Anion Gap 4L, Blood Urea Nitrogen 22H, Creatinine 1.80H, Estimat Glomerular Filtration Rate 30, BUN/Creatinine Ratio 12, Glucose Level 97, Calcium Level 8.1L, Corrected Calcium 9.1, Total Bilirubin 0.3, Aspartate Amino Transf (AST/SGOT) 23, Alanine Aminotransferase (ALT/SGPT) 10, Alkaline Phosphatase 55, Total Protein 6.5, Albumin 2.7L Microbiology 08/20/23 Urine Culture - Preliminary, Resulted NO GROWTH 08/19/23 Gram Stain, Resulted Pending 08/19/23 Wound Culture - Preliminary, Resulted Culture In Progress 08/19/23 Blood Culture - Preliminary, Resulted Assessment/Plan Assessment/Plan Assessment/Plan Anemia of unknown origin Morbid Obesity DM Chronic Leg ulcers Hyperkalemia Hyperchloremia * Planning for EGD and Colonoscopy for Wednesday. Will get consent and prep her on Wednesday * Manage electrolyte abnormalities and monitor hemoglobin, she is receiving another transfusion this morning along with iron due to hemoglobin drop to 6.9. JEFFREY ORELLANA DO 08/21/23 1349: Subjective Time Seen by a Provider: 11:29 Subjective/Events-last exam Pt seen and examined, states no abdominal pain and tolerating diet. She does feel tired and is getting another PRBC. Review of Systems General: No Chills; Fatigue Pulmonary: No Dyspnea, No Cough Cardiovascular: No: Chest Pain, Palpitations Gastrointestinal: No: Nausea, Vomiting Objective Exam General Appearance: No Apparent Distress, Obese (MORBIDLY OBESE) HEENT: PERRL/EOMI, Pharynx Normal Respiratory: Lungs Clear, Normal Breath Sounds, No Accessory Muscle Use, No Respiratory Distress Cardiovascular: Regular Rate, Rhythm, No Murmur Gastrointestinal: non tender, soft Extremity: No Calf Tenderness, Other (thick skin on feet) Neurologic/Psychiatric: Alert, Oriented x3 Skin: Other (chronic LE ulcers) Assessment/Plan Assessment/Plan Assessment/Plan Anemia of unknown origin Morbid Obesity DM Chronic Leg ulcers Hyperkalemia Hyperchloremia * Planning for EGD and Colonoscopy for Wednesday. Will get consent and prep her on Wednesday, start clears today * Manage electrolyte abnormalities and monitor hemoglobin, she is receiving another transfusion this morning along with iron due to hemoglobin drop to 6. 9. Supervisory-Addendum Brief Verification & Attestation Participated in pt care: history, MDM, physical Personally performed: exam, history, MDM, supervision of care Care discussed with: Medical Student Procedures: n/a Verification and Attestation of Medical Student E/M Service A medical student performed and documented this service. I then reviewed and verified all information documented by the medical student and made modifications to such information, when appropriate. I personally performed a physical exam, medical decision making and then discussed any differences between the notes and made revisions as necessary to create one note. Jeffrey Orellana , 08/21/23 , 13:49 ANTON CURTIS Aug 21, 2023 10:12 JEFFREY ORELLANA DO Aug 21, 2023 13:49
[2023-08-21] MEDS ORDERED: TROUGH ORDER-PHARMACY XX ONE ×2 (11:00→15:00)
[2023-08-21] MEDS ORDERED: diphenhydrAMINE INJ 50 MG/ML VIAL IV PRN (11:30)
[2023-08-21] MEDS ORDERED: EPINEPHrine INJECTION 1 MG/ML AMP IM PRN (11:30)
[2023-08-21] MEDS ORDERED: HYDROCORTISONE INJECTION 100 MG/2 ML VIAL IV PRN (11:30)
[2023-08-21] MEDS ORDERED: RT-ALBUTEROL SULF 2.5 MG/3 ML PRE-MIX VIAL IH PRN (11:30)
[2023-08-21] MEDS: NS IV 500 ML 500 ML IV SCH ×2 (11:40→19:17)
[2023-08-21] MEDS ORDERED: VANCOMYCIN 1,750 MG/NS 500 ML IVPB IV SCH ×2 (12:00)
[2023-08-21] MEDS ORDERED: IRON DEXTRAN INJECTION 25 MG in NS (IVPB) 250 ML 5.75 ML IV ONE (12:00)
--- NOTE | 2023-08-21 12:13 | Progress Note - Hospitalist ---
Subjective HPI/CC On Admission Date Seen by Provider: Aug 21, 2023 Pt is a 73yo with PMH HTN, T2DM, HLD, CKD, lymphedema, decubitus ulcer, morbid obesity who presented to the ER due to weakness and leg pain. She was admitted here earlier this month due to similar was found to be quite anemic and have cellulitis of her lower extremities. She was discharged home and has been having home health but per Dr. Lezama did not make her follow-up appointment with her and per patient has not even been able to get out of bed for the past 3 to 4 days due to her pain. She has had to call the infusion nurse for assistance and if she could not get up yesterday to go to the bathroom so called them again. She relates it all due to pain in her legs. In the emergency room she was found to weeping erythematous legs and was started on IV antibiotics. She was also fo und to be anemic again. This morning she reports feeling better now that she has gotten some rest. Subjective/Events-last exam Pt reports doing well today just tired. Requesting IV iron as this is normally how she feels when she gets iron. Focused Exam Lactate Level 08/19/23 22:35: Lactic Acid Level 0.84 Time of Focused Exam: 23:25 Objective Exam Vital Signs Vital Signs Date Time Temp Pulse Resp B/P (MAP) Pulse Ox O2 Delivery O2 Flow Rate FiO2 08/21/23 11:40 36.8 73 20 135/82 (99) 97 Nasal Cannula 2.00 Capillary Refill : Less Than 3 Seconds General Appearance: No Apparent Distress, Chronically ill, Obese Respiratory: Lungs Clear, No Respiratory Distress Cardiovascular: Regular Rate, Rhythm, No Murmur Extremity: Swelling Neurologic/Psychiatric: Alert, Oriented x3 Results/Procedures Lab Laboratory Tests 08/21/23 05:22 Patient resulted labs reviewed. Imaging: Reviewed Imaging Report Assessment/Plan Assessment and Plan Assess & Plan/Chief Complaint Symptomatic anemia Anemia of chronic disease Chronic kidney disease, stage 4 Hgb 6.4 on arrival, up to 6.9 today s/p 2 units PRBC, will given another FOBT positive earlier this month Spoke with Dr Orellana who will see her while inpatient- planning for EGD/Colonoscopy 08/23 Renal function at baseline 1.8, up slightly from yesterday, trend Will give Infed Chronic lymphedema Decubitus ulcer Verito intertrigo Wound care consulted appreciate assistance on wound management Vanc and Zosyn Cultures with mixed heath Diflucan Miconazole powder T2DM Sliding scale insulin Super super obesity Debility PT/OT HTN HLD Continue home meds as appropriate DVT prophylaxis: RAAD Vicnete MD Aug 21, 2023 12:13
[2023-08-21] MEDS ORDERED: IRON DEXTRAN INJECTION 1,000 MG in NS (IVPB) 250 ML 250 ML IV ONE (12:30)
[2023-08-21] MEDS: ENOXAPARIN 40 MG/0.4 ML SYRINGE SQ SCH (13:04)
[2023-08-21] MEDS ORDERED: IRON SUCROSE 200 MG/10 ML VIAL IV NR (13:30)
[2023-08-21 16:14] LABS: BASOPHILS % (AUTO) 0 % (0-10); EOSINOPHILS # (AUTO) 0.4 10^3/uL (0.0-0.3); EOSINOPHILS % (AUTO) 4 % (0-10); HEMATOCRIT 25 % (35-52); HEMOGLOBIN 7.7 g/dL (11.5-16.0); LYMPHOCYTES # (AUTO) 1.3 X 10^3 (1.0-4.0); LYMPHOCYTES % (AUTO) 16 % (12-44); MEAN CORPUSCULAR HEMOGLOBIN 28 pg (25-34); MEAN CORPUSCULAR HGB CONC 30 g/dL (32-36); MEAN CORPUSCULAR VOLUME 92 fL (80-99); MEAN PLATELET VOLUME 9.9 fL (9.0-12.2); MONOCYTES # (AUTO) 0.7 X 10^3 (0.0-1.0); MONOCYTES % (AUTO) 9 % (0-12); NEUTROPHILS % (AUTO) 71 % (42-75); PLATELET COUNT 196 10^3/uL (130-400); WHITE BLOOD COUNT 8.5 10^3/uL (4.3-11.0)
[2023-08-21] MEDS: ASPIRIN enteric coated 81MG TABLET PO SCH (21:34)
[2023-08-22 03:08] VITALS: BP 127/67
[2023-08-22 04:08] LABS: BASOPHILS % (AUTO) 0 % (0-10); EOSINOPHILS # (AUTO) 0.4 10^3/uL (0.0-0.3); EOSINOPHILS % (AUTO) 6 % (0-10); HEMATOCRIT 25 % (35-52); HEMOGLOBIN 7.6 g/dL (11.5-16.0); LYMPHOCYTES # (AUTO) 1.4 10^3/uL (1.0-4.0); LYMPHOCYTES % (AUTO) 18 % (12-44); MEAN CORPUSCULAR HEMOGLOBIN 28 pg (25-34); MEAN CORPUSCULAR HGB CONC 30 g/dL (32-36); MEAN CORPUSCULAR VOLUME 93 fL (80-99); MEAN PLATELET VOLUME 10.1 fL (9.0-12.2); MONOCYTES # (AUTO) 0.8 10^3/uL (0.0-1.0); MONOCYTES % (AUTO) 11 % (0-12); NEUTROPHILS # (AUTO) 4.8 10^3/uL (1.8-7.8); NEUTROPHILS % (AUTO) 65 % (42-75); PLATELET COUNT 183 10^3/uL (130-400); WHITE BLOOD COUNT 7.5 10^3/uL (4.3-11.0)
[2023-08-22 04:24] LABS: ALBUMIN 2.6 GM/DL (3.2-4.5); POTASSIUM 4.8 MMOL/L (3.6-5.0)
[2023-08-22 04:27] LABS: TOTAL PROTEIN 6.4 GM/DL (6.4-8.2)
[2023-08-22 04:28] LABS: BILIRUBIN,TOTAL 0.4 MG/DL (0.1-1.0)
[2023-08-22 04:30] LABS: CREATININE SERUM 1.81 MG/DL (0.60-1.30)
[2023-08-22] MEDS: inSUlin ASPART 1 UNIT/0.01 ML (PER UNIT) SC SCH ×4 (04:30→21:25)
[2023-08-22] MEDS: PIOGLITAZONE 30MG TABLET PO SCH (06:02)
[2023-08-22] MEDS: PIPERACILLIN/Tazobactam 4.5 GM in NS (IVPB) 100 ML 100 ML IV SCH ×3 (06:02→21:26)
[2023-08-22 07:25] VITALS: BP 133/61
[2023-08-22] MEDS ORDERED: VANCOMYCIN 1,750 MG/NS 500 ML IVPB IV SCH ×2 (08:00)
[2023-08-22] MEDS: amLODIPine 5 MG TABLET PO SCH (08:35)
[2023-08-22] MEDS: GABAPENTIN 100 MG CAPSULE PO SCH ×3 (08:35→21:24)
[2023-08-22] MEDS: VITAMIN D3 25 MCG (1,000 UNITS) TABLET PO SCH (08:35)
[2023-08-22] MEDS: MICONAZOLE 2% CREAM 30 GM TP SCH ×2 (08:36→21:26)
[2023-08-22] MEDS: MICONAZOLE 2% POWDER 90 GM TOP SCH ×2 (08:36→21:26)
--- NOTE | 2023-08-22 10:41 | Progress Note - Hospitalist ---
Subjective HPI/CC On Admission Date Seen by Provider: Aug 22, 2023 Pt is a 73yo with PMH HTN, T2DM, HLD, CKD, lymphedema, decubitus ulcer, morbid obesity who presented to the ER due to weakness and leg pain. She was admitted here earlier this month due to similar was found to be quite anemic and have cellulitis of her lower extremities. She was discharged home and has been having home health but per Dr. Lezama did not make her follow-up appointment with her and per patient has not even been able to get out of bed for the past 3 to 4 days due to her pain. She has had to call the equity structurer for assistance and if she could not get up yesterday to go to the bathroom so called them again. She relates it all due to pain in her legs. In the emergency room she was found to weeping erythematous legs and was started on IV antibiotics. She was also fo und to be anemic again. This morning she reports feeling better now that she has gotten some rest. Subjective/Events-last exam Pt reports doing well today. No complaints. Starting bowel prep today. RN reports no new concerns. Focused Exam Lactate Level 08/19/23 22:35: Lactic Acid Level 0.84 Time of Focused Exam: 23:25 Objective Exam Vital Signs Vital Signs Date Time Temp Pulse Resp B/P (MAP) Pulse Ox O2 Delivery O2 Flow Rate FiO2 08/22/23 09:44 95 Nasal Cannula 2.00 08/22/23 07:25 36.8 66 18 133/61 (85) Capillary Refill : Less Than 3 Seconds General Appearance: No Apparent Distress, Chronically ill, Obese Respiratory: Lungs Clear Cardiovascular: Regular Rate, Rhythm Neurologic/Psychiatric: Alert, Oriented x3 Results/Procedures Lab Laboratory Tests 08/21/23 16:05 08/22/23 04:00 Patient resulted labs reviewed. Imaging: Reviewed Imaging Report Assessment/Plan Assessment and Plan Assess & Plan/Chief Complaint Symptomatic anemia Anemia of chronic disease Chronic kidney disease, stage 4 Hgb 6.4 on arrival, up to 7.6 s/p 3 units PRBC total FOBT positive earlier this month Surgery consulted, planning for EGD/Colonoscopy 08/23 Renal function at baseline 1.8, stable Will give Venofer (infed made her itch) Chronic lymphedema Decubitus ulcer Verito intertrigo Wound care consulted appreciate assistance on wound management Continue Zosyn- DC vanc Cultures with mixed heath Diflucan Miconazole powder T2DM Sliding scale insulin Super super obesity Debility PT/OT HTN HLD Continue home meds as appropriate DVT prophylaxis: RAAD Vicente MD Aug 22, 2023 10:41
--- NOTE | 2023-08-22 11:17 | Progress Note - Surgery ---
ANTON CURTIS 08/22/23 1117: Subjective Date Seen by a Provider: Aug 22, 2023 Subjective/Events-last exam Pt reports that she is feeling better today after getting Iron and another unit of blood. She reports having more energy and has no acute concerns today. She reports pain from her ulcers is significantly improved. Her hemoglobin went up to 7.7 yesterday after the transfusion and was at 7.6 this morning. She is on clear liquid diet. She has had 2 BM's today. Review of Systems General: No Night Sweats, No Fatigue HEENT: No Head Aches, No Sore Throat Pulmonary: No Dyspnea, No Cough Cardiovascular: No: Chest Pain, Lt Headedness Gastrointestinal: Melena (chronic); No: Nausea, Vomiting, Diarrhea Genitourinary: No Dysuria, No Frequency Musculoskeletal: No: neck pain, arm pain Neurological: No: Weakness, Numbness, Confusion Focused Exam Lactate Level 08/19/23 22:35: Lactic Acid Level 0.84 Time of Focused Exam: 23:25 Objective Exam Vital Signs Date Time Temp Pulse Resp B/P (MAP) Pulse Ox O2 Delivery O2 Flow Rate FiO2 08/22/23 09:44 95 Nasal Cannula 2.00 08/22/23 08:00 Nasal Cannula 2.00 08/22/23 07:25 36.8 66 18 133/61 (85) 95 Nasal Cannula 2.00 08/22/23 03:08 36.6 67 16 127/67 (87) 95 Nasal Cannula 2.00 2.00 08/21/23 23:36 36.7 69 16 123/64 (83) 95 Nasal Cannula 2.00 2.00 08/21/23 21:28 Nasal Cannula 2.00 08/21/23 19:57 37.1 76 16 143/65 (91) 96 Nasal Cannula 2.00 08/21/23 15:52 37.3 74 16 129/60 (83) 96 Nasal Cannula 2.00 08/21/23 13:08 36.6 77 18 143/66 98 Nasal Cannula 2.00 08/21/23 13:06 36.6 75 18 143/66 97 Nasal Cannula 2.00 08/21/23 11:40 36.8 73 20 135/82 (99) 97 Nasal Cannula 2.00 I & O 08/22/23 06:59 Intake Total 1890 ml Output Total 1750 ml Balance 140 ml Capillary Refill : Less Than 3 Seconds General Appearance: No Apparent Distress, Chronically ill, Obese (morbidly obese) HEENT: PERRL/EOMI; No Scleral Icterus (L), No Scleral Icterus (R) Neck: Non Tender, Supple Respiratory: Lungs Clear, No Accessory Muscle Use, No Respiratory Distress Cardiovascular: Regular Rate, Rhythm, No Murmur Gastrointestinal: non tender, soft Extremity: No Calf Tenderness, Other (thick scaly skin on ankle and midway up calf, erythema, crusting, and yellow brown discoloration) Neurologic/Psychiatric: Alert, Oriented x3 Skin: Normal Color, Other (chronic LE ulcers) Results Lab Laboratory Tests 08/21/23 15:10: Vancomycin Level Trough 17.2 08/21/23 16:05: White Blood Count 8.5, Red Blood Count 2.76L, Hemoglobin 7.7L, Hematocrit 25L, Mean Corpuscular Volume 92, Mean Corpuscular Hemoglobin 28, Mean Corpuscular Hemoglobin Concent 30L, Red Cell Distribution Width 17.3H, Platelet Count 196, Mean Platelet Volume 9.9, Immature Granulocyte % (Auto) 0, Neutrophils (%) (Auto) 71, Lymphocytes (%) (Auto) 16, Monocytes (%) (Auto) 9, Eosinophils (%) (Auto) 4, Basophils (%) (Auto) 0, Neutrophils # (Auto) 6.0, Lymphocytes # (Auto) 1.3, Monocytes # (Auto) 0.7, Eosinophils # (Auto) 0.4H, Basophils # (Auto) 0.0, Immature Granulocyte # (Auto) 0.0, Glucometer 112H 08/21/23 20:38: Glucometer 117H 08/22/23 04:00: White Blood Count 7.5, Red Blood Count 2.71L, Hemoglobin 7.6L, Hematocrit 25L, Mean Corpuscular Volume 93, Mean Corpuscular Hemoglobin 28, Mean Corpuscular Hemoglobin Concent 30L, Red Cell Distribution Width 17.1H, Platelet Count 183, Mean Platelet Volume 10.1, Immature Granulocyte % (Auto) 1, Neutrophils (%) (Auto) 65, Lymphocytes (%) (Auto) 18, Monocytes (%) (Auto) 11, Eosinophils (%) (Auto) 6, Basophils (%) (Auto) 0, Neutrophils # (Auto) 4.8, Lymphocytes # (Auto) 1.4, Monocytes # (Auto) 0.8, Eosinophils # (Auto) 0.4H, Basophils # (Auto) 0.0, Immature Granulocyte # (Auto) 0.0, Sodium Level 140, Potassium Level 4.8, Chloride Level 112H, Carbon Dioxide Level 21, Anion Gap 7, Blood Urea Nitrogen 23H, Creatinine 1.81H, Estimat Glomerular Filtration Rate 30, BUN/Creatinine Ratio 13, Glucose Level 91, Calcium Level 8.0L, Corrected Calcium 9.1, Total Bilirubin 0.4, Aspartate Amino Transf (AST/SGOT) 18, Alanine Aminotransferase (ALT/SGPT) 9, Alkaline Phosphatase 54, Total Protein 6.4, Albumin 2.6L 08/22/23 10:37: Glucometer 93 Microbiology 08/20/23 Urine Culture - Final, Complete NO GROWTH 08/19/23 Gram Stain - Final, Resulted 08/19/23 Wound Culture - Preliminary, Resulted Mixed Bacterial Faith 08/19/23 Blood Culture - Preliminary, Resulted Assessment/Plan Assessment/Plan Assessment/Plan Anemia of unknown origin Morbid Obesity DM Chronic Leg ulcers Hyperkalemia Hyperchloremia * Planning for EGD and Colonoscopy for Wednesday. Will get consent and prep her on Wednesday, started clears * Manage electrolyte abnormalities and monitor hemoglobin, she was at 7.6 this morning after transfusion yesterday JEFFREY ORELLANA DO 08/22/23 1556: Subjective Time Seen by a Provider: 14:25 Subjective/Events-last exam Pt seen and examined, no complaints and states no changes. States she is ready for "scopes" tomorow. Review of Systems General: No Night Sweats, No Fatigue Pulmonary: No Dyspnea, No Cough Cardiovascular: No: Chest Pain Gastrointestinal: Melena (chronic); No: Nausea, Vomiting, Diarrhea Genitourinary: Frequency Musculoskeletal: arm pain Objective Exam General Appearance: No Apparent Distress, Chronically ill, Obese (morbidly obese) HEENT: PERRL/EOMI; No Scleral Icterus (L), No Scleral Icterus (R) Respiratory: Lungs Clear, Normal Breath Sounds, No Accessory Muscle Use, No Respiratory Distress Cardiovascular: Regular Rate, Rhythm, No Murmur Gastrointestinal: non tender, soft Extremity: No Calf Tenderness, Other (thick scaly skin on ankle and midway up calf, erythema, crusting, and yellow brown discoloration) Neurologic/Psychiatric: Alert, Oriented x3 Assessment/Plan Assessment/Plan Assessment/Plan Anemia of unknown origin Morbid Obesity DM Chronic Leg ulcers Hyperkalemia - resolved Hyperchloremia - improving Mild Renal insufficiency * Planning for EGD and Colonoscopy for Wednesday. Will get consent, pt has started her prep * Manage electrolyte abnormalities and monitor hemoglobin, she was at 7.6 this morning after transfusion yesterday Supervisory-Addendum Brief Verification & Attestation Participated in pt care: history, MDM, physical Personally performed: exam, history, MDM, supervision of care Care discussed with: Medical Student Procedures: n/a Verification and Attestation of Medical Student E/M Service A medical student performed and documented this service. I then reviewed and verified all information documented by the medical student and made modifications to such information, when appropriate. I personally performed a physical exam, medical decision making and then discussed any differences between the notes and made revisions as necessary to create one note. Jeffrey Orellana , 08/22/23 , 15:56 ANTON CURTIS Aug 22, 2023 11:17 JEFFREY ORELLANA DO Aug 22, 2023 15:56
[2023-08-22 11:40] VITALS: BP 137/61
[2023-08-22] MEDS ORDERED: BISACODYL 5 MG TABLET PO NR ×2 (12:00→15:00)
[2023-08-22] MEDS: ENOXAPARIN 40 MG/0.4 ML SYRINGE SQ SCH (12:32)
[2023-08-22 15:20] VITALS: BP 133/67
[2023-08-22] MEDS ORDERED: [UNRECOGNIZED DRUG - OTHER] PO NR (18:00)
[2023-08-22 19:48] VITALS: BP 141/67
[2023-08-22] MEDS: NS IV 500 ML 500 ML IV SCH (21:07)
[2023-08-22] MEDS: ASPIRIN enteric coated 81MG TABLET PO SCH (21:24)
[2023-08-23] VITALS (10 sets, daily range): BP systolic 109–157; BP diastolic 54–71
[2023-08-23] MEDS: inSUlin ASPART 1 UNIT/0.01 ML (PER UNIT) SC SCH ×4 (05:21→20:53)
[2023-08-23] MEDS: PIPERACILLIN/Tazobactam 4.5 GM in NS (IVPB) 100 ML 100 ML IV SCH ×3 (05:21→22:21)
[2023-08-23 05:31] LABS: BASOPHILS % (AUTO) 0 % (0-10); EOSINOPHILS # (AUTO) 0.4 10^3/uL (0.0-0.3); EOSINOPHILS % (AUTO) 5 % (0-10); HEMATOCRIT 26 % (35-52); HEMOGLOBIN 7.8 g/dL (11.5-16.0); LYMPHOCYTES # (AUTO) 1.2 10^3/uL (1.0-4.0); LYMPHOCYTES % (AUTO) 16 % (12-44); MEAN CORPUSCULAR HEMOGLOBIN 29 pg (25-34); MEAN CORPUSCULAR HGB CONC 31 g/dL (32-36); MEAN CORPUSCULAR VOLUME 93 fL (80-99); MONOCYTES # (AUTO) 0.8 10^3/uL (0.0-1.0); MONOCYTES % (AUTO) 10 % (0-12); NEUTROPHILS # (AUTO) 5.4 10^3/uL (1.8-7.8); NEUTROPHILS % (AUTO) 70 % (42-75); PLATELET COUNT 175 10^3/uL (130-400); WHITE BLOOD COUNT 7.8 10^3/uL (4.3-11.0)
[2023-08-23 05:43] LABS: ALBUMIN 2.7 GM/DL (3.2-4.5); POTASSIUM 4.7 MMOL/L (3.6-5.0)
[2023-08-23 05:45] LABS: CALCIUM 8.1 MG/DL (8.5-10.1)
[2023-08-23 05:46] LABS: TOTAL PROTEIN 6.4 GM/DL (6.4-8.2)
[2023-08-23 05:48] LABS: BILIRUBIN,TOTAL 0.3 MG/DL (0.1-1.0)
[2023-08-23 05:49] LABS: CREATININE SERUM 1.74 MG/DL (0.60-1.30)
[2023-08-23] MEDS: PIOGLITAZONE 30MG TABLET PO SCH (05:55)
--- NOTE | 2023-08-23 06:47 | Progress Note - Surgery ---
ANTON CURTIS 08/23/23 0647: Subjective Date Seen by a Provider: Aug 23, 2023 Subjective/Events-last exam Pt reports the fatigue is better and she still has good amount of energy. She is prepped for the colonscopy and EGD today. She denies any acute concerns. Her hemoglobin is up to 7.8 today from 7.6 without anymore transfusions, her last one was 08/21. Review of Systems General: No Chills; Fatigue HEENT: No Head Aches, No Visual Changes Pulmonary: No Dyspnea, No Cough Cardiovascular: No: Chest Pain, Lt Headedness Gastrointestinal: No: Nausea, Vomiting, Abdominal Pain Genitourinary: No Dysuria, No Frequency Musculoskeletal: No: neck pain, back pain Neurological: No: Weakness, Numbness, Confusion Objective Exam Vital Signs Date Time Temp Pulse Resp B/P (MAP) Pulse Ox O2 Delivery O2 Flow Rate FiO2 08/23/23 04:18 36.7 66 18 127/65 (85) 98 Nasal Cannula 2.00 2.00 08/23/23 00:50 37.0 70 18 146/70 (95) 98 Nasal Cannula 2.00 2.00 08/22/23 20:11 Nasal Cannula 2.00 08/22/23 19:48 37.1 77 18 141/67 (91) Nasal Cannula 2.00 08/22/23 15:20 36.9 69 20 133/67 (89) 98 Nasal Cannula 2.00 08/22/23 11:40 36.9 72 20 137/61 (86) 97 Nasal Cannula 2.00 08/22/23 09:44 95 Nasal Cannula 2.00 08/22/23 08:00 Nasal Cannula 2.00 08/22/23 07:25 36.8 66 18 133/61 (85) 95 Nasal Cannula 2.00 I & O 08/23/23 06:59 Intake Total 2865.5 ml Output Total 1700 ml Balance 1165.5 ml Capillary Refill : Less Than 3 Seconds General Appearance: No Apparent Distress, Chronically ill, Obese (morbidly obes e) HEENT: PERRL/EOMI; No Scleral Icterus (L), No Scleral Icterus (R) Neck: Non Tender, Supple Respiratory: Lungs Clear, No Accessory Muscle Use, No Respiratory Distress Cardiovascular: Regular Rate, Rhythm, No Murmur Gastrointestinal: non tender, soft Extremity: No Calf Tenderness, Other (thick scaly skin on ankle and midway up calf, erythema, crusting, and yellow brown discoloration) Neurologic/Psychiatric: Alert, Oriented x3 Skin: Normal Color, Other (chronic LE ulcers) Results Lab Laboratory Tests 08/22/23 10:37: Glucometer 93 08/22/23 15:31: Glucometer 97 08/22/23 19:53: Glucometer 180H 08/23/23 05:15: White Blood Count 7.8, Red Blood Count 2.73L, Hemoglobin 7.8L, Hematocrit 26L, Mean Corpuscular Volume 93, Mean Corpuscular Hemoglobin 29, Mean Corpuscular Hemoglobin Concent 31L, Red Cell Distribution Width 16.8H, Platelet Count 175, Mean Platelet Volume 10.0, Immature Granulocyte % (Auto) 1, Neutrophils (%) (A uto) 70, Lymphocytes (%) (Auto) 16, Monocytes (%) (Auto) 10, Eosinophils (%) (Auto) 5, Basophils (%) (Auto) 0, Neutrophils # (Auto) 5.4, Lymphocytes # (Auto) 1.2, Monocytes # (Auto) 0.8, Eosinophils # (Auto) 0.4H, Basophils # (Auto) 0.0, Immature Granulocyte # (Auto) 0.0, Sodium Level 138, Potassium Level 4.7, Chloride Level 112H, Carbon Dioxide Level 20L, Anion Gap 6, Blood Urea Nitrogen 18, Creatinine 1.74H, Estimat Glomerular Filtration Rate 31, BUN/Creatinine Ratio 10, Glucose Level 92, Calcium Level 8.1L, Corrected Calcium 9.1, Total Bilirubin 0.3, Aspartate Amino Transf (AST/SGOT) 15, Alanine Aminotransferase (ALT/SGPT) 10, Alkaline Phosphatase 59, Total Protein 6.4, Albumin 2.7L 08/23/23 05:17: Glucometer 90 Microbiology 08/20/23 Urine Culture - Final, Complete NO GROWTH 08/19/23 Gram Stain - Final, Resulted 08/19/23 Wound Culture - Preliminary, Resulted Mixed Bacterial Faith 08/19/23 Blood Culture - Preliminary, Resulted Assessment/Plan Assessment/Plan Assessment/Plan Anemia of unknown origin Morbid Obesity DM Chronic Leg ulcers Hyperkalemia - resolved Hyperchloremia - improving Mild Renal insufficiency * EGD and colonoscopy today * Manage electrolyte abnormalities and monitor hemoglobin, she was at 7.8 this morning JEFFREY ORELLANA DO 08/23/23 1113: Subjective Time Seen by a Provider: 11:07 Subjective/Events-last exam Pt seen and examined, no new complaints and states she is ready for scopes. Review of Systems General: Fatigue Pulmonary: No Dyspnea, No Cough Cardiovascular: No: Chest Pain Gastrointestinal: No: Nausea, Abdominal Pain Genitourinary: No Dysuria, No Frequency Objective Exam General Appearance: No Apparent Distress, Chronically ill, Obese (morbidly obese) HEENT: PERRL/EOMI; No Scleral Icterus (L), No Scleral Icterus (R); Other (poor dentition) Respiratory: Lungs Clear, Normal Breath Sounds, No Accessory Muscle Use, No Respiratory Distress Cardiovascular: Regular Rate, Rhythm, No Murmur Gastrointestinal: non tender, soft Extremity: Other (thick scaly skin on ankle and midway up calf, erythema, crusting, and yellow brown discoloration) Skin: Other (chronic LE ulcers) Assessment/Plan Assessment/Plan Assessment/Plan Anemia of unknown origin Morbid Obesity DM Chronic Leg ulcers Hyperkalemia - resolved Hyperchloremia - improving Mild Renal insufficiency * EGD and colonoscopy today * Manage electrolyte abnormalities and monitor hemoglobin, she was at 7.8 this morning Supervisory-Addendum Brief Verification & Attestation Participated in pt care: history, MDM, physical Personally performed: exam, history, MDM, supervision of care Care discussed with: Medical Student Procedures: n/a Verification and Attestation of Medical Student E/M Service A medical student performed and documented this service. I then reviewed and verified all information documented by the medical student and made modifications to such information, when appropriate. I personally performed a physical exam, medical decision making and then discussed any differences between the notes and made revisions as necessary to create one note. Jeffrey Orellana , 08/23/23 , 11:13 ANTON CURTIS Aug 23, 2023 06:47 JEFFREY ORELLANA DO Aug 23, 2023 11:13
[2023-08-23] MEDS ORDERED: LACTATED RINGERS 1,000 ML 1,000 ML IV STA (10:38)
[2023-08-23] MEDS ORDERED: HURRICAINE EXT TUBE (BENZOCAINE) XX PRN (10:45)
--- NOTE | 2023-08-23 11:13 | Physical Therapy Daily Note ---
PT Daily Note-Current Subjective Patient sitting EOB. Agrees to therapy. Pain Section J - Health Conditions 1. Rarely or not at all 2. Occasionally 3. Frequently 4. Almost constantly 8. Unable to answer Pain Effect on Sleep: 1 Pain Interference with Therapy: 1 Pain Interference w/Day-to-Day: 1 Mental Status Patient Orientation: Normal For Age Attachments: Oxygen, Pichardo Catheter, IV Transfers SCALE: Activities may be completed with or without assistive devices. 8-Smukkfpmbq-ubcbgna completes the activity by him/herself with no assistance from a helper. 5-Set-up or Clean-up Assistance-helper sets up or cleans up; patient completes activity. [place] assists only prior to or following the activity. 4-Supervision or Touching Assistance-helper provides verbal cues and/or touching/steadying and/or contact guard assistance as patient completes activity. Assistance may be provided throughout the activity or intermittently. 3-Partial/Moderate Assistance-helper does LESS THAN HALF the effort. [place] lifts, holds or supports trunk or limbs, but provides less than half the effort. 2-Substantial/Maximal Assistance-helper does MORE THAN HALF the effort. [place] lifts or holds trunk or limbs and provides more than half the effort. 5-Jlxpuifcq-olwjys does ALL the effort. Patient does none of the effort to com plete the activity. Or, the assistance of 2 or more helpers is required for the patient to complete the activity. If activity was not attempted, code reason: 7-Patient Refused. 9-Not Applicable-not attempted and the patient did not perform the activity before the current illness, exacerbation or injury. 10-Not Attempted due to Environmental Limitations-(lack of equipment, weather restraints, etc.). 88-Not Attempted due to Medical Conditions or Safety Concerns. Sit to Stand (QC): 3 (x 3 sets with side stepping) Gait Training Distance: 5 side steps x 2 Gait Assistive Device: FWW Assessment Patient much improved on this date. Continue to increase activity as tolerated by patient. PT Skilled Nursing Goals Chief Counsel Goals PT Chief Counsel Goals Time Frame: Sep 18, 2023 Roll Left & Right (QC): 4 Sit to Lying (QC): 4 Lying-Sitting on Side/Bed(QC): 4 Sit to Stand (QC): 3 Chair/Udb-kr-Etmhb Xfer(QC): 3 Toilet Transfer (QC): 3 Walk 10 feet (QC): 3 Walk 50ft with 2 Turns (QC): 3 PT Plan Treatment/Plan Treatment Plan: Continue Plan of Care Treatment Plan: Bed Mobility, Education, Functional Activity Magaly, Functional Strength, Gait, Safety, Therapeutic Exercise, Transfers Treatment Duration: Sep 18, 2023 Frequency: 5 times per week Estimated Hrs Per Day: .25 hour per day Time Time In: 940 Time Out: 953 DATE: Aug 23, 2023 Total Billed Treatment Time: 13 Total Billed Treatment 1 visit FA 13 min EMI NG PT Aug 23, 2023 11:13
[2023-08-23] MEDS: amLODIPine 5 MG TABLET PO SCH (11:18)
[2023-08-23] MEDS: IRON SUCROSE 200 MG/10 ML VIAL IV SCH ×2 (11:18→14:46)
[2023-08-23] MEDS: GABAPENTIN 100 MG CAPSULE PO SCH ×3 (11:19→19:58)
[2023-08-23] MEDS: MICONAZOLE 2% CREAM 30 GM TP SCH ×2 (11:19→19:58)
[2023-08-23] MEDS: MICONAZOLE 2% POWDER 90 GM TOP SCH ×2 (11:19→19:58)
[2023-08-23] MEDS: FUROSEMIDE 40 MG TABLET PO SCH (11:19)
[2023-08-23] MEDS: VITAMIN D3 25 MCG (1,000 UNITS) TABLET PO SCH (11:19)
--- NOTE | 2023-08-23 11:22 | Occupational Ther Daily Note ---
OT Current Status-Daily Note Subjective Patient sitting EOB on arrival, BLE dangle and patient reports feet fell asleep Mental Status/Objective Patient Orientation: Person, Place, Time, Situation Attachments: Pichardo Catheter, IV ADL-Treatment Patient is dangling BLES over EOB and rubbing flaked skin cells onto floor. Uses slip on slippers however reports she cant feel the slipper and needs someone to put on her footwear. 3 count rock and push to stand 4 times last 2 trial successful Therapy Code Descriptions/Definitions Functional [place] Measure: 0=Not Assessed/NA 4=Minimal Assistance 1=Total Assistance 5=Supervision or Setup 2=Maximal Assistance 6=Modified [place] 3=Moderate Assistance 7=Complete IndependenceSCALE: Activities may be completed with or without assistive devices. 3-Zqaxwziqbm-lfxwoyv completes the activity by him/herself with no assistance from a helper. 5-Set-up or Clean-up Assistance-helper sets up or cleans up; patient completes activity. [place] assists only prior to or following the activity. 4-Supervision or Touching Assistance-helper provides verbal cues and/or touching/steadying and/or contact guard assistance as patient completes activity. Assistance may be provided throughout the activity or intermittently. 3-Partial/Moderate Assistance-helper does LESS THAN HALF the effort. [place] lifts, holds or supports trunk or limbs, but provides less than half the effort. 2-Substantial/Maximal Assistance-helper does MORE THAN HALF the effort. [place] lifts or holds trunk or limbs and provides more than half the effort. 7-Xuakfpkmu-mkbwbp does ALL the effort. Patient does none of the effort to complete the activity. Or, the assistance of 2 or more helpers is required for the patient to complete the activity. If activity was not attempted, code reason: 7-Patient Refused. 9-Not Applicable-not attempted and the patient did not perform the activity before the current illness, exacerbation or injury. 10-Not Attempted due to Environmental Limitations-(lack of equipment, weather restraints, etc.). 88-Not Attempted due to Medical Conditions or Safety Concerns. Eating (QC): 88 (NPO for procedure) Oral Hygiene (QC): 7 (declined) On/Off Footwear: 2 Toileting Hygiene (QC): 2 Toilet Transfer (QC): 2 Other Treatment Side stepping and standing endurance training Education OT Patient Education: Correct positioning, Exercise program, Modified ADL techniques, Progress toward Goal/Update tx plan, Purpose of tx/functional activities, Reviewed precautions, Rehab process, Safety issues, Transfer techniques, Use of adapted equipment Teaching Recipient: Patient, Family (daughter present) Teaching Methods: Demonstration Response to Teaching: Verbalize Understanding, Return Demonstration, Reinf orcement Needed OT Bar Supervisor Goals Bar Supervisor Goals Eating (QC): 6 Oral Hygiene (QC): 6 Toileting Hygiene (QC): 4 Shower/Bathe Self (QC): 4 Upper Body Dressing (QC): 4 Lower Body Dressing (QC): 4 On/Off Footwear (QC): 4 1=Demonstrate adherence to instructed precautions during ADL tasks. 2=Patient will verbalize/demonstrate understanding of assistive devices/modifications for ADL. 3=Patient will improve strength/tolerance for activity to enable patient to perf orm ADL's. OT Education/Plan Problem List/Assessment Assessment: Decreased Activ Tolerance, Decreased Safety Aware, Decreased UE Strength, Impaired Coordination, Impaired Funct Balance, Impaired Self-Care Skills Discharge Recommendations Plan/Recommendations: Continue POC Treatment Plan/Plan of Care Treatment,Training & Education: Yes Patient would benefit from OT for education, treatment and training to promote independence in ADL's, mobility, safety and/or upper extremity function for ADL's. Plan of Care: ADL Retraining, Functional Mobility, Group Exercise/Act as Ind, UE Funct Exercise/Act Treatment Duration: Aug 27, 2023 Frequency: 3 times per week Estimated Hrs Per Day: .25 hour per day Agreement: Yes Rehab Potential: Guarded Time Start Time: 09:44 Stop Time: 09:55 DATE: Aug 23, 2023 Total Time Billed (hr/min): 11 Billed Treatment Time ADL 11 min PANKAJ ARGUETA OT Aug 23, 2023 11:22
--- NOTE | 2023-08-23 12:21 | Anesthesia-General Post-Op ---
MAC Patient Condition Mental Status/LOC: Same as Preop Cardiovascular: Satisfactory Nausea/Vomiting: Absent Respiratory: Satisfactory Pain: Controlled Complications: Absent Post Op Complications Complications None Follow Up Care/Instructions Patient Instructions None needed. Anesthesiology Discharge Order Discharge Order Patient is awake and doing well, no complaints, stable vital signs, no apparent adverse anesthesia problems. No complications reported per nursing. DANIELA MCDANIELS DO Aug 23, 2023 12:21
[2023-08-23] MEDS: ENOXAPARIN 40 MG/0.4 ML SYRINGE SQ SCH (13:02)
--- NOTE | 2023-08-23 14:07 | Progress Note-Post Operative ---
Post-Operative Progess Note Surgeon (s)/Crown Pouncer (s) Surgeon SUNIL GUTIERREZ DO Crown Pouncer: GALEN HagenII Pre-Operative Diagnosis Anemia Post-Operative Diagnosis Gastritis with bleed Hiatal hernia Esophagitis Polyps Diverticula int hemorrhoids Procedure & Operative Findings Date of Procedure 08/23/23 Procedure Performed/Findings EGD with biopsy Colonoscopy with snare polypectomy PROCEDURE NOTE: After informed consent was obtained, the patient was brought to the endoscopy suite, placed in bed in left lateral decubitus position. She was administered IV sedation by the PICKLING SOLUTION MAKER who then monitored vitals the entire time, heart rate, blood pressure and pulse ox and the scope was inserted down the mouth through the esophagus into the stomach. On the way down, noted some mild esophagitis, took a picture, pushed into the stomach, pushed past the antrum into the duodenum. Duodenum looked good. Pulled back, noted moderate gastritis with some flecks of blood and took a picture. I then did a biopsy of the antrum and retroflexed the scope, saw a 1cm Grade II AFS hiatal hernia, took a picture of this and then pulled the scope into the GE junction. I took another picture of the hiatal hernia and then did a biopsy of the GE junction. Pushed the scope back into the stomach, suctioned all the air out of the stomach. At this point pulled the scope up the esophagus and out the mouth. Switched camera, switched gloves, went down below and started the colonoscopy. On the way in I saw some diverticula and took a picture of them. Pushed all the way to about 150 cm and pushed into the cecum, took a picture of appendiceal orifice and noted the ileocecal valve. Just before the cecum I found a large polyp and I removed it with a hot snare. It was too large to suction up so I used a Kim net to grab it and hold it on the way out of the colon. Right near there I found another small polyp but could not get the larger polyp out of the net and had to leave it. Then slowly withdrew the scope insufflating to look circumferentially at the robin from the cecum, up the ascending colon to the hepatic flexure, then down the transverse colon to the splenic flexure, into the descending colon down in the sigmoid and then into the rectal vault. I saw another polyp here, but removed the scope completely to get the large polyp out of the net. I then reinserted the scope and snared the rectal polyp. Finally, I retroflexed t the scope and took a picture of the internal hemorrhoids. The patient tolerated the procedure and she recovered in the endoscopy suite. Recommended for repeat colonoscopy in 1 year because a portion of the large polyp may have been left, plus another small polyp in the same area. Anesthesia Type IV sedation by Anesthesia Estimated Blood Loss Estimated blood loss (mL): scant Specimens/Packing Specimens Removed antral bx GE jxn bx Asc colon polyp rectal polyp SUNIL GUTIERREZ DO Aug 23, 2023 14:07
[2023-08-23] MEDS: NS IV 500 ML 500 ML IV SCH ×2 (14:44→19:29)
--- NOTE | 2023-08-23 15:53 | Progress Note - Hospitalist ---
Subjective HPI/CC On Admission Date Seen by Provider: Aug 23, 2023 Time Seen by Provider: 09:55 Pt is a 73yo with PMH HTN, T2DM, HLD, CKD, lymphedema, decubitus ulcer, morbid obesity who presented to the ER due to weakness and leg pain. She was admitted here earlier this month due to similar was found to be quite anemic and have sarthak lulitis of her lower extremities. She was discharged home and has been having home health but per Dr. Lezama did not make her follow-up appointment with her and per patient has not even been able to get out of bed for the past 3 to 4 days due to her pain. She has had to call the wardrobe specialty worker for assistance and if she could not get up yesterday to go to the bathroom so called them again. She relates it all due to pain in her legs. In the emergency room she was found to weeping erythematous legs and was started on IV antibiotics. She was also found to be anemic again. This morning she reports feeling better now that she has gotten some rest. Subjective/Events-last exam She is feeling well. She is sitting on the edge of her bed. She is ready to get her scopes done. She has no other complaints. Objective Exam Vital Signs Vital Signs Date Time Temp Pulse Resp B/P (MAP) Pulse Ox O2 Delivery O2 Flow Rate FiO2 08/23/23 12:46 36.4 65 16 121/57 (78) 94 Room Air 08/23/23 08:50 2.00 Capillary Refill : Less Than 3 Seconds General Appearance: No Apparent Distress, Obese Respiratory: Lungs Clear, No Respiratory Distress Cardiovascular: Regular Rate, Rhythm, No Murmur Gastrointestinal: Normal Bowel Sounds, Soft Extremity: Normal Inspection, Pedal Edema Neurologic/Psychiatric: Alert, Normal Mood/Affect Results/Procedures Lab Laboratory Tests 08/23/23 05:15 Patient resulted labs reviewed. Imaging: Reviewed Imaging Report Assessment/Plan Assessment and Plan Assess & Plan/Chief Complaint Symptomatic anemia Anemia of chronic disease Chronic kidney disease, stage 4 Hgb 6.4 on arrival, now improved s/p 3 units PRBC FOBT positive earlier this month Surgery following, planning for EGD/Colonoscopy today Renal function at baseline 1.8, stable s/p Venofer Chronic lymphedema Decubitus ulcer Verito intertrigo Wound care consulted appreciate assistance on wound management Continue Zosyn Cultures pending Diflucan Miconazole powder T2DM Sliding scale insulin Super super obesity Debility PT/OT HTN HLD Continue home meds as appropriate DVT prophylaxis: Lovenox Diagnosis/Problems Diagnosis/Problems (1) Severe anemia Status: Acute (2) Symptomatic anemia Status: Acute (3) Lymphedema Status: Acute (4) HTN (hypertension) Status: Chronic (5) HLD (hyperlipidemia) Status: Chronic (6) T2DM (type 2 diabetes mellitus) Status: Chronic (7) CKD (chronic kidney disease) stage 4, GFR 15-29 ml/min Status: Chronic (8) Anemia of chronic disease Status: Chronic (9) Decubitus ulcer Status: Acute (10) Super-super obese Status: Chronic JAYLENE JACKSON MD Aug 23, 2023 15:53
[2023-08-23] MEDS: SUCRALFATE 1 GM TABLET PO SCH ×2 (16:50→19:58)
[2023-08-23] MEDS: PANTOPRAZOLE 40 MG TABLET PO SCH (19:58)
[2023-08-23] MEDS: ASPIRIN enteric coated 81MG TABLET PO SCH (19:58)
[2023-08-24 03:29] VITALS: BP 148/67
[2023-08-24 04:26] LABS: BASOPHILS % (AUTO) 1 % (0-10); EOSINOPHILS # (AUTO) 0.3 10^3/uL (0.0-0.3); EOSINOPHILS % (AUTO) 5 % (0-10); HEMATOCRIT 26 % (35-52); HEMOGLOBIN 7.6 g/dL (11.5-16.0); LYMPHOCYTES # (AUTO) 1.3 10^3/uL (1.0-4.0); LYMPHOCYTES % (AUTO) 19 % (12-44); MEAN CORPUSCULAR HEMOGLOBIN 28 pg (25-34); MEAN CORPUSCULAR HGB CONC 30 g/dL (32-36); MEAN CORPUSCULAR VOLUME 94 fL (80-99); MEAN PLATELET VOLUME 10.2 fL (9.0-12.2); MONOCYTES # (AUTO) 0.7 10^3/uL (0.0-1.0); MONOCYTES % (AUTO) 11 % (0-12); NEUTROPHILS # (AUTO) 4.3 10^3/uL (1.8-7.8); NEUTROPHILS % (AUTO) 64 % (42-75); PLATELET COUNT 167 10^3/uL (130-400); WHITE BLOOD COUNT 6.7 10^3/uL (4.3-11.0)
[2023-08-24 05:30] LABS: ALBUMIN 2.6 GM/DL (3.2-4.5); POTASSIUM 4.4 MMOL/L (3.6-5.0)
[2023-08-24 05:31] LABS: CALCIUM 8.1 MG/DL (8.5-10.1)
[2023-08-24 05:33] LABS: TOTAL PROTEIN 6.5 GM/DL (6.4-8.2)
[2023-08-24 05:34] LABS: BILIRUBIN,TOTAL 0.3 MG/DL (0.1-1.0)
[2023-08-24 05:36] LABS: CREATININE SERUM 1.7 MG/DL (0.60-1.30)
[2023-08-24] MEDS: PIOGLITAZONE 30MG TABLET PO SCH (06:25)
[2023-08-24] MEDS: SUCRALFATE 1 GM TABLET PO SCH ×4 (06:25→20:49)
[2023-08-24] MEDS: PIPERACILLIN/Tazobactam 4.5 GM in NS (IVPB) 100 ML 100 ML IV SCH ×2 (06:25→14:19)
[2023-08-24] MEDS: inSUlin ASPART 1 UNIT/0.01 ML (PER UNIT) SC SCH ×4 (06:25→20:38)
--- NOTE | 2023-08-24 06:46 | Progress Note - Surgery ---
ANTON CURTIS 08/24/23 0646: Subjective Date Seen by a Provider: Aug 24, 2023 Subjective/Events-last exam Pt is feeling well today after colonoscopy and EGD yesterday. She reports that she is going to try and get up and walk today. She reports only being a little tired due to liquid diet and is hungry today. No acute concerns. Her Hgb was at 7.6 this morning and 7.8 yesterday with last transfusion on 08/21 Review of Systems General: No Chills, No Fatigue HEENT: No Head Aches, No Visual Changes, No Sore Throat Pulmonary: No Dyspnea, No Cough Cardiovascular: No: Chest Pain, Palpitations Gastrointestinal: No: Nausea, Vomiting, Abdominal Pain Genitourinary: No Dysuria, No Frequency, No Hematuria Musculoskeletal: No: neck pain, back pain Neurological: No: Weakness, Numbness, Confusion Objective Exam Vital Signs Date Time Temp Pulse Resp B/P (MAP) Pulse Ox O2 Delivery O2 Flow Rate FiO2 08/24/23 03:29 36.5 66 16 148/67 (94) 95 Nasal Cannula 2.00 2.00 08/23/23 23:16 36.5 66 16 131/66 (87) 95 Nasal Cannula 2.00 2.00 08/23/23 20:27 Nasal Cannula 2.00 08/23/23 20:24 93 Nasal Cannula 2.00 08/23/23 20:23 37.2 68 16 142/61 (88) 89 Room Air 08/23/23 16:29 37.2 71 18 157/71 (99) 93 Room Air 08/23/23 12:46 36.4 65 16 121/57 (78) 94 Room Air 08/23/23 12:23 65 16 96 Room Air 08/23/23 12:18 66 16 97 Room Air 08/23/23 11:41 36.4 71 16 109/57 (74) 98 Room Air 08/23/23 08:50 Nasal Cannula 2.00 08/23/23 07:58 36.2 69 16 142/65 (90) 95 Nasal Cannula 2.00 I & O 08/24/23 07:00 Intake Total 2182 ml Output Total 800 ml Balance 1382 ml Capillary Refill : Less Than 3 Seconds General Appearance: No Apparent Distress, Obese HEENT: PERRL/EOMI; No Scleral Icterus (L), No Scleral Icterus (R); Other (poor dentition) Neck: Non Tender, Supple Respiratory: Lungs Clear, No Respiratory Distress Cardiovascular: Regular Rate, Rhythm, No Murmur Gastrointestinal: non tender, soft Extremity: Normal Inspection, Pedal Edema Neurologic/Psychiatric: Alert, Normal Mood/Affect Skin: Warm/Dry, Other (chronic LE ulcers) Results Lab Laboratory Tests 08/23/23 11:28: Glucometer 85 08/23/23 12:44: Glucometer 78 08/23/23 16:34: Glucometer 127H 08/23/23 20:42: Glucometer 98 08/24/23 04:15: White Blood Count 6.7, Red Blood Count 2.73L, Hemoglobin 7.6L, Hematocrit 26L, Mean Corpuscular Volume 94, Mean Corpuscular Hemoglobin 28, Mean Corpuscular Hemoglobin Concent 30L, Red Cell Distribution Width 16.6H, Platelet Count 167, Mean Platelet Volume 10.2, Immature Granulocyte % (Auto) 0, Neutrophils (%) (Auto) 64, Lymphocytes (%) (Auto) 19, Monocytes (%) (Auto) 11, Eosinophils (%) (Auto) 5, Basophils (%) (Auto) 1, Neutrophils # (Auto) 4.3, Lymphocytes # (Auto) 1.3, Monocytes # (Auto) 0.7, Eosinophils # (Auto) 0.3, Basophils # (Auto) 0.0, Immature Granulocyte # (Auto) 0.0, Sodium Level 138, Potassium Level 4.4, Chloride Level 112H, Carbon Dioxide Level 21, Anion Gap 5, Blood Urea Nitrogen 15, Creatinine 1.70H, Estimat Glomerular Filtration Rate 32, BUN/Creatinine Ratio 9, Glucose Level 86, Calcium Level 8.1L, Corrected Calcium 9.2, Total Bilirubin 0.3, Aspartate Amino Transf (AST/SGOT) 12, Alanine Aminotransferase (ALT/SGPT) 10, Alkaline Phosphatase 53, Total Protein 6.5, Albumin 2.6L Microbiology 08/21/23 MRSA Screen - Final, Complete MRSA not isolated 08/20/23 Urine Culture - Final, Complete NO GROWTH 08/19/23 Gram Stain - Final, Resulted 08/19/23 Wound Culture - Preliminary, Resulted Staphylococcus aureus Mixed Bacterial Faith 08/19/23 Blood Culture - Preliminary, Resulted Assessment/Plan Assessment/Plan Assessment/Plan Anemia of unknown origin Cecum polyps and rectal polyp Gastritis Morbid Obesity DM Chronic Leg ulcers Hyperkalemia - resolved Hyperchloremia - improving Mild Renal insufficiency * EGD and colonoscopy yesterday- removed cecum polyp and rectal vault polyp, will follow up with colonoscopy in one year * Follow up in clinic in one week for biopsy results * Clear for discharge from surgical standpoint * Start on PPI * Manage electrolyte abnormalities and monitor hemoglobin, she was at 7.6 this morning JEFFREY ORELLANA DO 08/24/23 1507: Subjective Time Seen by a Provider: 11:21 Subjective/Events-last exam Pt seen and examined, no new complaints; she just wants to eat more today. Review of Systems HEENT: No Head Aches, No Visual Changes Cardiovascular: No: Chest Pain, Palpitations Gastrointestinal: No: Nausea, Vomiting, Abdominal Pain Genitourinary: No Dysuria, No Frequency Objective Exam General Appearance: No Apparent Distress, Obese (super morbidly) HEENT: PERRL/EOMI; No Scleral Icterus (L), No Scleral Icterus (R); Other (poor dentition) Respiratory: Lungs Clear, No Accessory Muscle Use, No Respiratory Distress Cardiovascular: Regular Rate, Rhythm, No Murmur Gastrointestinal: non tender, soft Extremity: Pedal Edema Neurologic/Psychiatric: Alert, Normal Mood/Affect Skin: Warm/Dry, Other (chronic LE ulcers) Assessment/Plan Assessment/Plan Assessment/Plan Anemia of unknown origin Cecum polyps and rectal polyp Gastritis Morbid Obesity DM Chronic Leg ulcers Hyperkalemia - resolved Hyperchloremia - improving Mild Renal insufficiency * EGD and colonoscopy yesterday- removed cecum polyp and rectal vault polyp, will follow up with colonoscopy in one year * Follow up in clinic in one week for biopsy results * Clear for discharge from surgical standpoint * Start on PPI * Manage electrolyte abnormalities and monitor hemoglobin, she was at 7.6 this morning Supervisory-Addendum Brief Verification & Attestation Participated in pt care: history, MDM, physical Personally performed: exam, history, MDM, supervision of care Care discussed with: Medical Student Procedures: n/a Verification and Attestation of Medical Student E/M Service A medical student performed and documented this service. I then reviewed and verified all information documented by the medical student and made modifications to such information, when appropriate. I personally performed a physical exam, medical decision making and then discussed any differences between the notes and made revisions as necessary to create one note. Jeffrey Orellana , 08/24/23 , 15:07 ANTON CURTIS Aug 24, 2023 06:46 JEFFREY ORELLANA DO Aug 24, 2023 15:07
[2023-08-24] MEDS ORDERED: TROUGH ORDER-PHARMACY XX ONE (07:00)
[2023-08-24 08:11] VITALS: BP 148/66
[2023-08-24] MEDS: GABAPENTIN 100 MG CAPSULE PO SCH ×3 (08:27→20:49)
[2023-08-24] MEDS: VITAMIN D3 25 MCG (1,000 UNITS) TABLET PO SCH (08:28)
[2023-08-24] MEDS: amLODIPine 5 MG TABLET PO SCH (08:28)
[2023-08-24] MEDS: PANTOPRAZOLE 40 MG TABLET PO SCH ×2 (08:29→20:49)
[2023-08-24] MEDS: MICONAZOLE 2% POWDER 90 GM TOP SCH ×2 (08:30→20:50)
[2023-08-24] MEDS: MICONAZOLE 2% CREAM 30 GM TP SCH ×2 (08:30→20:50)
--- NOTE | 2023-08-24 10:07 | Physical Therapy Daily Note ---
PT Daily Note-Current Subjective Patient agrees to therapy. Pain Section J - Health Conditions 1. Rarely or not at all 2. Occasionally 3. Frequently 4. Almost constantly 8. Unable to answer Pain Effect on Sleep: 1 Pain Interference with Therapy: 1 Pain Interference w/Day-to-Day: 1 Transfers SCALE: Activities may be completed with or without assistive devices. 0-Lvxgmulgsn-tpahpqc completes the activity by him/herself with no assistance from a helper. 5-Set-up or Clean-up Assistance-helper sets up or cleans up; patient completes activity. [place] assists only prior to or following the activity. 4-Supervision or Touching Assistance-helper provides verbal cues and/or touching/steadying and/or contact guard assistance as patient completes activity. Assistance may be provided throughout the activity or intermittently. 3-Partial/Moderate Assistance-helper does LESS THAN HALF the effort. [place] lifts, holds or supports trunk or limbs, but provides less than half the effort. 2-Substantial/Maximal Assistance-helper does MORE THAN HALF the effort. [place] lifts or holds trunk or limbs and provides more than half the effort. 1-Bezemdenc-zqkeuz does ALL the effort. Patient does none of the effort to complete the activity. Or, the assistance of 2 or more helpers is required for the patient to complete the activity. If activity was not attempted, code reason: 7-Patient Refused. 9-Not Applicable-not attempted and the patient did not perform the activity before the current illness, exacerbation or injury. 10-Not Attempted due to Environmental Limitations-(lack of equipment, weather restraints, etc.). 88-Not Attempted due to Medical Conditions or Safety Concerns. Lying to Sitting/Side of Bed(Q: 4 Sit to Stand (QC): 4 Chair/Jhx-ao-Znqhd Xfer(QC): 4 Gait Training Distance: 10' Walk 10 feet (QC): 4 Gait Assistive Device: FWW WBOS Assessment Patient requires time to complete all functional tasks and is up in recliner with needs met. Patient is SBA with all mobility PT Golf Course Designer Goals Golf Course Designer Goals PT Senior Living Goals Time Frame: Sep 18, 2023 Roll Left & Right (QC): 4 Sit to Lying (QC): 4 Lying-Sitting on Side/Bed(QC): 4 Sit to Stand (QC): 3 Chair/Rix-wl-Qwvwl Xfer(QC): 3 Toilet Transfer (QC): 3 Walk 10 feet (QC): 3 Walk 50ft with 2 Turns (QC): 3 PT Plan Treatment/Plan Treatment Plan: Continue Plan of Care Treatment Plan: Bed Mobility, Education, Functional Activity [place], Functional Strength, Gait, Safety, Therapeutic Exercise, Transfers Treatment Duration: Sep 18, 2023 Frequency: 5 times per week Estimated Hrs Per Day: .25 hour per day Time Time In: 845 Time Out: 900 DATE: Aug 24, 2023 Total Billed Treatment Time: 15 Total Billed Treatment 1 visit FA 15 min EMI NG PT Aug 24, 2023 10:07
--- NOTE | 2023-08-24 10:21 | Occupational Ther Daily Note ---
OT Current Status-Daily Note Subjective Agreeable to get out of bed and use recliner, patient reports she was told therapy gets her out of bed and her nurse didn't want to be responsible if she fell Mental Status/Objective Patient Orientation: Person, Place, Time, Situation Attachments: Pichardo Catheter ADL-Treatment Daughter assists patient at home w/ ADL and monitoring toilet hygiene. OT noted residual bowel on bedding and performed hygiene task. Patient reports she does not sleep in a bed and only uses a recliner, Patient able to sit/stand 3 times from recliner w/o assistance supervision only w/ FWW positioned in front of patient. Patient is at [facility] for ADLS Therapy Code Descriptions/Definitions Functional [place] Measure: 0=Not Assessed/NA 4=Minimal Assistance 1=Total Assistance 5=Supervision or Setup 2=Maximal Assistance 6=Modified [place] 3=Moderate Assistance 7=Complete IndependenceSCALE: Activities may be completed with or without assistive devices. 4-Egchrxaxvs-dvugzlz completes the activity by him/herself with no assistance from a helper. 5-Set-up or Clean-up Assistance-helper sets up or cleans up; patient completes activity. [place] assists only prior to or following the activity. 4-Supervision or Touching Assistance-helper provides verbal cues and/or touching/steadying and/or contact guard assistance as patient completes activity. Assistance may be provided throughout the activity or intermittently. 3-Partial/Moderate Assistance-helper does LESS THAN HALF the effort. [place] lifts, holds or supports trunk or limbs, but provides less than half the effort. 2-Substantial/Maximal Assistance-helper does MORE THAN HALF the effort. [place] lifts or holds trunk or limbs and provides more than half the effort. 7-Lpofqtxst-ewdaof does ALL the effort. Patient does none of the effort to c omplete the activity. Or, the assistance of 2 or more helpers is required for the patient to complete the activity. If activity was not attempted, code reason: 7-Patient Refused. 9-Not Applicable-not attempted and the patient did not perform the activity before the current illness, exacerbation or injury. 10-Not Attempted due to Environmental Limitations-(lack of equipment, weather restraints, etc.). 88-Not Attempted due to Medical Conditions or Safety Concerns. Eating (QC): 6 Oral Hygiene (QC): 5 (Patient is able to ambulate to bathroom SBA w/ FWW) Upper Body Dressing (QC): 5 Lower Body Dressing (QC): 3 On/Off Footwear: 5 (slip on shoes) Toileting Hygiene (QC): 2 Toilet Transfer (QC): 5 Education OT Patient Education: Correct positioning, Exercise program, Modified ADL techniques, Progress toward Goal/Update tx plan, Purpose of tx/functional activities, Reviewed precautions, Rehab process, Safety issues, Transfer techniques, Use of adapted equipment Teaching Recipient: Patient Teaching Methods: Demonstration Response to Teaching: Verbalize Understanding, Return Demonstration OT Parking Enforcer Goals Parking Enforcer Goals Eating (QC): 6 Oral Hygiene (QC): 6 Toileting Hygiene (QC): 4 Shower/Bathe Self (QC): 4 Upper Body Dressing (QC): 4 Lower Body Dressing (QC): 4 On/Off Footwear (QC): 4 1=Demonstrate adherence to instructed precautions during ADL tasks. 2=Patient will verbalize/demonstrate understanding of assistive devices/modifications for ADL. 3=Patient will improve strength/tolerance for activity to enable patient to perform ADL's. OT Education/Plan Problem List/Assessment Assessment: Decreased Activ Tolerance Discharge Recommendations Plan/Recommendations: Discharge/Goals Met Treatment Plan/Plan of Care Patient would benefit from OT for education, treatment and training to promote independence in ADL's, mobility, safety and/or upper extremity function for ADL's. Plan of Care: ADL Retraining, Functional Mobility, Group Exercise/Act as Ind, UE Funct Exercise/Act Treatment Duration: Aug 27, 2023 Frequency: 3 times per week Estimated Hrs Per Day: .25 hour per day Agreement: Yes Rehab Potential: Guarded DC OT PLOF met Time Start Time: 08:50 Stop Time: 09:02 DATE: Aug 24, 2023 Total Time Billed (hr/min): 12 Billed Treatment Time ADL 12 min PANKAJ ARGUETA OT Aug 24, 2023 10:21
[2023-08-24 11:19] VITALS: BP 143/65
--- NOTE | 2023-08-24 11:55 | Wound Care Assessment ---
Wound Care Assessment Date Seen by Provider: Aug 24, 2023 Time Seen by Provider: 11:50 Chief Complaint Candidal skin infections with weeping lower extremity ulceration and sacral MASD HPI This pleasant 73 year old patient is well known to my outpatient clinic. She is massively obese with well controlled DM2 and a long h/o obesity related lymphedema with recurrent LE ulcerations. She frequently gets superinfections (both bacterial and fungal). On admit she had circumferential weeping to bilateral LE with cheesy drainage and candidal odor. There were no deep ulcerations. Her sacrum had cheesy discharge as well with evidence of MASD and shearing injury from scooting on transfers. She did also have evidence of cutaneous candidal infections in all skin folds. We did agressively treat yeast with both topical and order preparations. Unfortunately, we have counseled Glenda on weight loss many times in the past with no movement in the area. Her recurrent ulcerations have no chance of resolving without reoccurence with her current state of health. On exam today, her candidal infections appear resolved. As a result, all open ulcerations appear epithelialized. I do not see a need for additional advanced dressings at this time, nor does she need outpatient wound care follow up on d/c home. She notes that she will likely discharge soon and that surgery discussed removing rojo catheter (appropriately). Past Medical History: Admits Diabetes Type II, Admits Heart Disease Smoking Status: Former Smoker (quit 16 yrs ago) Recreational Drug Use: No Alcohol Use: Denies Use Exam Vital Signs Date Time Temp Pulse Resp B/P (MAP) Pulse Ox O2 Delivery O2 Flow Rate FiO2 08/24/23 11:19 36.3 67 18 143/65 (91) 97 Room Air 08/24/23 10:51 0.00 Capillary Refill : Less Than 3 Seconds General Appearance: no apparent distress, obese (massive obesity) HEENT: other (normal hearing) Neck: full range of motion Respiratory: no respiratory distress, no accessory muscle use Extremities: pedal edema Neurologic/Psychiatric: alert, normal mood/affect, oriented x 3 Skin: normal color, warm/dry Skin Character: scales, thickening Results Laboratory Tests 08/23/23 12:44: Glucometer 78 08/23/23 16:34: Glucometer 127H 08/23/23 20:42: Glucometer 98 08/24/23 04:15: White Blood Count 6.7, Red Blood Count 2.73L, Hemoglobin 7.6L, Hematocrit 26L, Mean Corpuscular Volume 94, Mean Corpuscular Hemoglobin 28, Mean Corpuscular Hemoglobin Concent 30L, Red Cell Distribution Width 16.6H, Platelet Count 167, Mean Platelet Volume 10.2, Immature Granulocyte % (Auto) 0, Neutrophils (%) (Auto) 64, Lymphocytes (%) (Auto) 19, Monocytes (%) (Auto) 11, Eosinophils (%) (Auto) 5, Basophils (%) (Auto) 1, Neutrophils # (Auto) 4.3, Lymphocytes # (Auto) 1.3, Monocytes # (Auto) 0.7, Eosinophils # (Auto) 0.3, Basophils # (Auto) 0.0, Immature Granulocyte # (Auto) 0.0, Sodium Level 138, Potassium Level 4.4, Chloride Level 112H, Carbon Dioxide Level 21, Anion Gap 5, Blood Urea Nitrogen 15, Creatinine 1.70H, Estimat Glomerular Filtration Rate 32, BUN/Creatinine Ratio 9, Glucose Level 86, Calcium Level 8.1L, Corrected Calcium 9.2, Total Bilirubin 0.3, Aspartate Amino Transf (AST/SGOT) 12, Alanine Aminotransferase (ALT/SGPT) 10, Alkaline Phosphatase 53, Total Protein 6.5, Albumin 2.6L 08/24/23 10:47: Glucometer 116H Microbiology 08/21/23 MRSA Screen - Final, Complete MRSA not isolated 08/20/23 Urine Culture - Final, Complete NO GROWTH 08/19/23 Gram Stain - Final, Resulted 08/19/23 Wound Culture - Preliminary, Resulted Staphylococcus aureus Mixed Bacterial Faith 08/19/23 Blood Culture - Preliminary, Resulted Assessment/Plan/Dx Assessment: 1. Resolution of non-pressure lower extremity ulcers 2. Massive obesity with associated lymphedema 3. Cutaneous candidiasis-great improvement 4. MASD sacrum with shearing injury-epithelialized 5. Chronic refractory anemia 6. DM2 previously well controlled 7. CKD stage 4 8. Generalized weakness Plan: 1. Apply miconazole powder and cream bid and leave CORE PASTER. OK to gently scrub lower extremities to remove crusting 2. As discussed above 3. Diflucan oral. Miconazole powder and cream accordingly. OK to discontinue upon discharge home. 4. Frequent changes, cream and powder bid until discharge home 5. defer to primary team 6. Defer to primary team 7. Defer to primary team 8. Defer to primary team. OK for Rojo removal from my perspective ARASH BUENO MD Aug 24, 2023 11:55
[2023-08-24] MEDS: ENOXAPARIN 40 MG/0.4 ML SYRINGE SQ SCH (14:18)
[2023-08-24 15:35] VITALS: BP 168/70
--- NOTE | 2023-08-24 17:51 | Progress Note - Hospitalist ---
Subjective HPI/CC On Admission Date Seen by Provider: Aug 24, 2023 Time Seen by Provider: 10:50 Pt is a 73yo with PMH HTN, T2DM, HLD, CKD, lymphedema, decubitus ulcer, morbid obesity who presented to the ER due to weakness and leg pain. She was admitted here earlier this month due to similar was found to be quite anemic and have sarthak lulitis of her lower extremities. She was discharged home and has been having home health but per Dr. Lezama did not make her follow-up appointment with her and per patient has not even been able to get out of bed for the past 3 to 4 days due to her pain. She has had to call the manager web application for assistance and if she could not get up yesterday to go to the bathroom so called them again. She relates it all due to pain in her legs. In the emergency room she was found to weeping erythematous legs and was started on IV antibiotics. She was also found to be anemic again. This morning she reports feeling better now that she has gotten some rest. Subjective/Events-last exam She is feeling better. She is up in her chair. She wants to take a shower. She was not able to walk much with therapy today. Objective Exam Vital Signs Vital Signs Date Time Temp Pulse Resp B/P (MAP) Pulse Ox O2 Delivery O2 Flow Rate FiO2 08/24/23 15:35 36.4 68 17 168/70 (102) 92 Room Air 08/24/23 10:51 0.00 Capillary Refill : Less Than 3 Seconds General Appearance: No Apparent Distress, Obese Respiratory: Lungs Clear, No Respiratory Distress Cardiovascular: Regular Rate, Rhythm, No Murmur Gastrointestinal: Normal Bowel Sounds, Soft Extremity: Non Tender, Pedal Edema, Other (lymphedema) Neurologic/Psychiatric: Alert, Normal Mood/Affect Results/Procedures Lab Laboratory Tests 08/24/23 04:15 Patient resulted labs reviewed. Imaging: Reviewed Imaging Report Assessment/Plan Assessment and Plan Assess & Plan/Chief Complaint Symptomatic anemia Upper GI bleeding Gastritis and esophagitis Anemia of chronic disease Chronic kidney disease, stage 4 Hgb stable s/p 3 units PRBC s/p Venofer Surgery following s/p EGD/colonoscopy 08/23 showing gastritis with bleed, esophagitis, hiatal hernia, polyps, hemorrhoids PPI Carafate Chronic lymphedema Decubitus ulcer Verito intertrigo Wound care consulted appreciate assistance on wound management Stop Zosyn Transition to Omnicef Cultures pending, Staph aureus Diflucan Miconazole powder T2DM Sliding scale insulin Super super obesity Debility PT/OT HTN HLD Continue home meds as appropriate DVT prophylaxis: Lovenox Diagnosis/Problems Diagnosis/Problems (1) Severe anemia Status: Acute (2) Symptomatic anemia Status: Acute (3) Lymphedema Status: Acute (4) HTN (hypertension) Status: Chronic (5) HLD (hyperlipidemia) Status: Chronic (6) T2DM (type 2 diabetes mellitus) Status: Chronic (7) CKD (chronic kidney disease) stage 4, GFR 15-29 ml/min Status: Chronic (8) Anemia of chronic disease Status: Chronic (9) Decubitus ulcer Status: Acute (10) Super-super obese Status: Chronic (11) Gastritis with bleeding Status: Acute (12) Esophagitis Status: Acute (13) Hiatal hernia Status: Acute (14) Colon polyps Status: Acute (15) Hemorrhoids Status: Acute JAYLENE JACKSON MD Aug 24, 2023 17:51
[2023-08-24 19:48] VITALS: BP 155/69
[2023-08-24] MEDS: CEFDINIR 300 MG CAPSULE PO SCH (20:49)
[2023-08-24] MEDS: ASPIRIN enteric coated 81MG TABLET PO SCH (20:49)
[2023-08-24 23:15] VITALS: BP 126/62
[2023-08-24] MEDS: NS IV 500 ML 500 ML IV SCH (23:17)
[2023-08-25 03:17] VITALS: BP 127/61
[2023-08-25 05:42] LABS: BASOPHILS % (AUTO) 0 % (0-10); EOSINOPHILS # (AUTO) 0.4 10^3/uL (0.0-0.3); EOSINOPHILS % (AUTO) 5 % (0-10); HEMATOCRIT 27 % (35-52); LYMPHOCYTES # (AUTO) 1.1 10^3/uL (1.0-4.0); LYMPHOCYTES % (AUTO) 15 % (12-44); MEAN CORPUSCULAR HEMOGLOBIN 28 pg (25-34); MEAN CORPUSCULAR HGB CONC 30 g/dL (32-36); MEAN CORPUSCULAR VOLUME 94 fL (80-99); MEAN PLATELET VOLUME 10.2 fL (9.0-12.2); MONOCYTES # (AUTO) 0.7 10^3/uL (0.0-1.0); MONOCYTES % (AUTO) 9 % (0-12); NEUTROPHILS % (AUTO) 70 % (42-75); PLATELET COUNT 178 10^3/uL (130-400); WHITE BLOOD COUNT 7.2 10^3/uL (4.3-11.0)
[2023-08-25 05:54] LABS: ALBUMIN 2.8 GM/DL (3.2-4.5); POTASSIUM 4.5 MMOL/L (3.6-5.0)
[2023-08-25 05:55] LABS: CALCIUM 8.3 MG/DL (8.5-10.1)
[2023-08-25 05:57] LABS: TOTAL PROTEIN 6.8 GM/DL (6.4-8.2)
[2023-08-25 05:58] LABS: BILIRUBIN,TOTAL 0.2 MG/DL (0.1-1.0)
[2023-08-25] MEDS: inSUlin ASPART 1 UNIT/0.01 ML (PER UNIT) SC SCH ×3 (05:58→16:05)
[2023-08-25 06:00] LABS: CREATININE SERUM 1.76 MG/DL (0.60-1.30)
[2023-08-25] MEDS: PIOGLITAZONE 30MG TABLET PO SCH (06:10)
[2023-08-25] MEDS: SUCRALFATE 1 GM TABLET PO SCH ×3 (06:10→16:43)
[2023-08-25 07:11] VITALS: BP 128/67
[2023-08-25] MEDS: VITAMIN D3 25 MCG (1,000 UNITS) TABLET PO SCH (08:37)
[2023-08-25] MEDS: GABAPENTIN 100 MG CAPSULE PO SCH ×2 (08:37→11:54)
[2023-08-25] MEDS: amLODIPine 5 MG TABLET PO SCH (08:37)
[2023-08-25] MEDS: PANTOPRAZOLE 40 MG TABLET PO SCH (08:37)
[2023-08-25] MEDS: FUROSEMIDE 40 MG TABLET PO SCH (08:37)
[2023-08-25] MEDS: CEFDINIR 300 MG CAPSULE PO SCH (08:37)
[2023-08-25] MEDS: IRON SUCROSE 200 MG/10 ML VIAL IV SCH (08:37)
[2023-08-25] MEDS: MICONAZOLE 2% CREAM 30 GM TP SCH (08:38)
[2023-08-25] MEDS: MICONAZOLE 2% POWDER 90 GM TOP SCH (08:38)
[2023-08-25 11:14] VITALS: BP 121/63
[2023-08-25] MEDS: ENOXAPARIN 40 MG/0.4 ML SYRINGE SQ SCH (11:54)
[2023-08-25] MEDS ORDERED: PANT40TA52 PO (11:59)
[2023-08-25] MEDS ORDERED: FERR324T4 PO (11:59)
[2023-08-25] MEDS ORDERED: CEFD300C3 PO (11:59)
[2023-08-25] MEDS ORDERED: SUCR1TAB PO (11:59)
[2023-08-25] MEDS ORDERED: FLUC100T10 PO (11:59)
--- NOTE | 2023-08-25 12:06 | D/C HH Face to Face Order ---
D/C Face to Face Orders Instructions for Patient Via [facility], Patient Instructions/FollowUp: see instructions Physician to follow Patient: Lise Discharge Diet for Home: ADA Diet, Low Sodium Diet Patient Data-Allergies,Ht & Wt Patient Allergies: Coded Allergies: tramadol (Verified Allergy, Mild, Abdominal Pain, 08/07/23) NAUSEA iron dextran complex (Verified Adverse Reaction, Mild, itching- tolerates Venofer, 08/22/23) Height (Feet): 5 Height (Inches): 6.00 Weight (Pounds): 285 Weight (Ounces): 0.0 Home Health Need/Face to Face Date of Face to Face: Aug 25, 2023 Clinical Findings: Generalized weakness and fatigue, Instability, Muscle weakness, Wound infection I have seen Pt wvtu-ls-[id number]: Yes Discharged To: Home Diagnosis/Conditions: Anemia Gastritis Lymphedema Wound infection CKD HTN T2DM Morbid obesity Problems/Diagnosis/Condition: (1) Severe anemia (2) Gastritis with bleeding (3) Lymphedema (4) T2DM (type 2 diabetes mellitus) (5) CKD (chronic kidney disease) stage 4, GFR 15-29 ml/min (6) Super-super obese (7) HTN (hypertension) Patient is Homebound due to: [place] fall risk due to instabilty, Muscle weakness Homebound Status Due to the above stated illness, injury or surgical procedure (medical condition or diagnosis) and associated clinical findings, the patient is homebound because of his/her inability to leave home except with aid of a supportive device and/or person AND leaving the home requires a considerable and taxing effort or is medically contraindicated. Pt req the following assistanc: Aid of another person, Walker Home Health Nursing Orders Home Health Services Order: Nursing Services, Batch Unit Treater-Evaluate & Treat, Physical Therapy-Evaluate & Treat, Wound Care-Eval/Treat Home Health Infusion Therapy Line Start Date: Aug 19, 2023 Therapy Orders Therapy Orders: OT (must have SN or PT order), Physical Therapy Therapy Specific Orders: Eval assistive deivces, Teach enviro modifications/s afety, Gait training, Increase strength/endurance Certify Stmt I certify that this patient is under my care and that I, a nurse practitioner or a physician; a virtual office assistant working with me, had a face to face encounter that - meets the physician face to face encounter requirements with this patient as dated. JAYLENE JACKSON MD Aug 25, 2023 12:06
--- NOTE | 2023-08-25 12:47 | Physical Therapy Daily Note ---
PT Daily Note-Current Subjective Patient sitting in chair upon PT arrival, agreeable to treatment. Patient rates pain at 0/10 currently. Pain Section J - Health Conditions 1. Rarely or not at all 2. Occasionally 3. Frequently 4. Almost constantly 8. Unable to answer Pain Effect on Sleep: 1 Pain Interference with Therapy: 1 Pain Interference w/Day-to-Day: 1 Transfers SCALE: Activities may be completed with or without assistive devices. 9-Nbdfvxlosj-qihigyy completes the activity by him/herself with no assistance from a helper. 5-Set-up or Clean-up Assistance-helper sets up or cleans up; patient completes a ctivity. [place] assists only prior to or following the activity. 4-Supervision or Touching Assistance-helper provides verbal cues and/or touching/steadying and/or contact guard assistance as patient completes activity. Assistance may be provided throughout the activity or intermittently. 3-Partial/Moderate Assistance-helper does LESS THAN HALF the effort. [place] lifts, holds or supports trunk or limbs, but provides less than half the effort. 2-Substantial/Maximal Assistance-helper does MORE THAN HALF the effort. [place] lifts or holds trunk or limbs and provides more than half the effort. 1-Bmanvypcl-xybdcb does ALL the effort. Patient does none of the effort to complete the activity. Or, the assistance of 2 or more helpers is required for the patient to complete the activity. If activity was not attempted, code reason: 7-Patient Refused. 9-Not Applicable-not attempted and the patient did not perform the activity before the current illness, exacerbation or injury. 10-Not Attempted due to Environmental Limitations-(lack of equipment, weather restraints, etc.). 88-Not Attempted due to Medical Conditions or Safety Concerns. Sit to Stand (QC): 4 Chair/Nhc-mw-Ifsai Xfer(QC): 4 Gait Training Does the Patient Walk?: Yes Distance: 50' Walk 10 feet (QC): 4 Walk 50 ft with 2 Turns(QC): 4 Gait Assistive Device: FWW Assessment Current Status: Fair Progress Patient tolerated treatment fair. She performs all transfers with SBA/CGA. Grayson ramone ambulates 50 feet in the room with FWW, with SBA/CGA and verbal cues for safety, posture, progression. Patient in chair post treatment with all needs met, nursing notified, call light in hand. PT Nursing Home Goals Nursing Home Goals PT Nursing Home Goals Time Frame: Sep 18, 2023 Roll Left & Right (QC): 4 Sit to Lying (QC): 4 Lying-Sitting on Side/Bed(QC): 4 Sit to Stand (QC): 3 Chair/Lxa-oz-Kedpb Xfer(QC): 3 Toilet Transfer (QC): 3 Walk 10 feet (QC): 3 Walk 50ft with 2 Turns (QC): 3 PT Plan Treatment/Plan Treatment Plan: Continue Plan of Care Treatment Plan: Bed Mobility, Education, Functional Activity Magaly, Functional Strength, Gait, Safety, Therapeutic Exercise, Transfers Treatment Duration: Sep 18, 2023 Frequency: 5 times per week Estimated Hrs Per Day: .25 hour per day Safety Risks/Education Patient Education: Gait Training, Transfer Techniques Teaching Recipient: Patient Teaching Methods: Demonstration, Discussion Response to Teaching: Verbalize Understanding, Return Demonstration Time Time In: 1045 Time Out: 1055 DATE: Aug 25, 2023 Total Billed Treatment Time: 10 Total Billed Treatment Visit, GT JUAREZ MAYFIELD PT Aug 25, 2023 12:47
[2023-08-25 15:50] VITALS: BP 137/63
--- NOTE | 2023-08-25 18:22 | Discharge Summary ---
Discharge Summary Hospital Course Problems/Dx: (1) Severe anemia Status: Acute (2) Symptomatic anemia Status: Acute (3) Lymphedema Status: Acute (4) HTN (hypertension) Status: Chronic (5) HLD (hyperlipidemia) Status: Chronic (6) T2DM (type 2 diabetes mellitus) Status: Chronic (7) CKD (chronic kidney disease) stage 4, GFR 15-29 ml/min Status: Chronic (8) Anemia of chronic disease Status: Chronic (9) Decubitus ulcer Status: Acute (10) Super-super obese Status: Chronic (11) Gastritis with bleeding Status: Acute (12) Esophagitis Status: Acute (13) Hiatal hernia Status: Acute (14) Colon polyps Status: Acute (15) Hemorrhoids Status: Acute Hospital Course Date of Admission: Aug 20, 2023 at 00:44 Admission Diagnosis : Symptomatic anemia Family Physician/Provider: Mane Lezama MD Date of Discharge: 08/25/23 Discharge Diagnosis: Symptomatic anemia, upper GI bleeding, gastritis with bleeding, chronic lymphedema with wound infection Hospital Course: Glenda Iraheta is a 73 year old female with PMH HTN, T2DM, HLD, CKD, lymphedema, morbid obesity, who was admitted with symptomatic anemia. She required 3 units PRBC transfusion. She had a positive fecal occult blood test. Surgery was consulted and she underwent EGD/colonoscopy which revealed gastritis with bleed. She also had esophagitis, hiatal hernia, polyps, diverticula, and hemorrhoids. She was started on Protonix and Carafate. She was given IV iron and started on oral iron supplements. Her course was complicated by wound infection related to her chronic lymphedema. A wound culture revealed Staph aureus which was suspected MSSA. She was treated with IV Zosyn and then transitioned to Omnicef to complete as an outpatient. She was also given Diflucan for fungal infection. Wound care was consulted and recommended Miconazole twice daily to the wounds and leave them open to air. She was debilitated and was set up with home health care. She was given a prescription for a front-wheeled walker. She should follow up with Dr. Lezama in a week or two. She should follow up with Dr. Orellana as scheduled. A repeat colonoscopy in one year was recommended. She should follow up with Dr. Salmon in wound care as scheduled. She was discharged home in stable condition. Labs and Pending Lab Test: Laboratory Tests 08/24/23 19:52: Glucometer 119H 08/25/23 05:16: Glucometer 105 08/25/23 05:30: White Blood Count 7.2, Red Blood Count 2.86L, Hemoglobin 8.0L, Hematocrit 27L, Mean Corpuscular Volume 94, Mean Corpuscular Hemoglobin 28, Mean Corpuscular Hemoglobin Concent 30L, Red Cell Distribution Width 16.6H, Platelet Count 178, Mean Platelet Volume 10.2, Immature Granulocyte % (Auto) 1, Neutrophils (%) (Au to) 70, Lymphocytes (%) (Auto) 15, Monocytes (%) (Auto) 9, Eosinophils (%) (Auto) 5, Basophils (%) (Auto) 0, Neutrophils # (Auto) 5.0, Lymphocytes # (Auto) 1.1, Monocytes # (Auto) 0.7, Eosinophils # (Auto) 0.4H, Basophils # (Auto) 0.0, Immature Granulocyte # (Auto) 0.0, Sodium Level 138, Potassium Level 4.5, Chloride Level 112H, Carbon Dioxide Level 19L, Anion Gap 7, Blood Urea Nitrogen 19H, Creatinine 1.76H, Estimat Glomerular Filtration Rate 31, BUN/Creatinine Ratio 11, Glucose Level 102, Calcium Level 8.3L, Corrected Calcium 9.3, Total Bilirubin 0.2, Aspartate Amino Transf (AST/SGOT) 14, Alanine Aminotransferase (ALT/SGPT) 11, Alkaline Phosphatase 60, Total Protein 6.8, Albumin 2.8L 08/25/23 10:03: Glucometer 133H 08/25/23 15:55: Glucometer 103 Microbiology 08/21/23 MRSA Screen - Final, Complete MRSA not isolated 08/20/23 Urine Culture - Final, Complete NO GROWTH 08/19/23 Gram Stain - Final, Resulted 08/19/23 Wound Culture - Preliminary, Resulted Staphylococcus aureus Mixed Bacterial Faith 08/19/23 Blood Culture - Final, Complete Home Meds Active Ferrous Sulfate 324 Mg (65 Mg Iron) Tablet.dr 324 Mg PO DAILY 30 Days Sucralfate 1 Gram Tablet 1 Gm PO ACHS 30 Days Pantoprazole Sodium 40 Mg Tablet.dr 40 Mg PO BID 30 Days Fluconazole 100 Mg Tablet 100 Mg PO DAILY 5 Days Cefdinir 300 Mg Capsule 300 Mg PO BID 5 Days Reported Furosemide 40 Mg Tablet 40 Mg PO MO,WE,FR Gabapentin 100 Mg Capsule 100 Mg PO TID Pioglitazone HCl 45 Mg Tablet 45 Mg PO DAILY Vitamin D3 (Cholecalciferol (Vitamin D3)) 25 Mcg (1000 Unit) Tablet 25 Mcg PO DAILY Vitamin C (Ascorbate Calcium) 500 Mg Tablet 500 Mg PO DAILY Vitamin B-12 (Cyanocobalamin (Vitamin B-12)) 2,000 Mcg Tablet.er 2,000 Mcg PO DAILY Nye-3 Fish Oil 1,000 mg Sfgl (Nye-3/Dha/Epa/Fish Oil) 1,000 Mg (120 Mg-180 Mg) Capsule 1,000 Mg PO HS Pravastatin Sodium 40 Mg Tablet 40 Mg PO HS Amlodipine Besylate 5 Mg Tablet 5 Mg PO DAILY Aspirin EC (Aspirin) 81 Mg Tablet.dr 81 Mg PO HS Nye-3 Fish Oil 1,000 mg Sfgl (Nye-3/Dha/Epa/Fish Oil) 1,000 Mg (120 Mg-180 Mg) Capsule 2,000 Mg PO DAILY TAKES 2 (1000MG) CAPS Assessment/Pt Instructions see instructions Discharge Planning: >30 minutes discharge planning Discharge Instructions Discharge Diet: ADA Diet Activity as Tolerated: Yes Consultations Surgery Discharge Physical Examination Vital Signs Vital Signs Date Time Temp Pulse Resp B/P (MAP) Pulse Ox O2 Delivery O2 Flow Rate FiO2 08/25/23 15:50 36.3 67 17 137/63 (87) 95 Room Air 08/24/23 10:51 0.00 General Appearance: No Apparent Distress, Obese Respiratory: Lungs Clear, No Respiratory Distress Cardiovascular: Regular Rate, Rhythm, No Murmur Gastrointestinal: Normal Bowel Sounds, Soft Extremity: Pedal Edema, Swelling Neurologic/Psychiatric: Alert, Normal Mood/Affect Allergies: Coded Allergies: tramadol (Verified Allergy, Mild, Abdominal Pain, 08/07/23) NAUSEA iron dextran complex (Verified Adverse Reaction, Mild, itching- tolerates Venofer, 08/22/23) Copy Copies To 1: MANE LEZAMA MD Discharge Summary Date of Admission Aug 20, 2023 at 00:44 Date of Discharge Discharge Date: Aug 25, 2023 Discharge Time: 18:13 Admission Diagnosis Anemia Consults/Procedures Consulations Surgery Procedures EGD/colonoscopy Discharge Diagnosis Symptomatic anemia Upper GI bleeding Gastritis and esophagitis Anemia of chronic disease Chronic kidney disease, stage 4 Chronic lymphedema Decubitus ulcer Verito intertrigo Wound infection T2DM Super super obesity Debility HTN HLD (1) Severe anemia Status: Acute (2) Symptomatic anemia Status: Acute (3) Lymphedema Status: Acute (4) HTN (hypertension) Status: Chronic (5) HLD (hyperlipidemia) Status: Chronic (6) T2DM (type 2 diabetes mellitus) Status: Chronic (7) CKD (chronic kidney disease) stage 4, GFR 15-29 ml/min Status: Chronic (8) Anemia of chronic disease Status: Chronic (9) Decubitus ulcer Status: Acute (10) Super-super obese Status: Chronic (11) Gastritis with bleeding Status: Acute (12) Esophagitis Status: Acute (13) Hiatal hernia Status: Acute (14) Colon polyps Status: Acute (15) Hemorrhoids Status: Acute JAYLENE JACKSON MD Aug 25, 2023 18:18
[2023-08-25 18:32] VITALS: BP 137/63
== END 2023-08-25 18:33 | disposition home health service (06) | DRG 378 ==
LOC: EDUNIT# 22:20 → ER 22:21 → ICU 08-20 00:44 → 4TH 08-20 15:20
PROVIDERS: ADMIT Internal Medicine; ATTEND Internal Medicine
PROC: 0DBK8ZZ Excision of Ascending Colon, Via Natural or Artificial Opening Endoscopic (ICD-10-PCS; 2023-08-23)
PROC: 0DBP8ZZ Excision of Rectum, Via Natural or Artificial Opening Endoscopic (ICD-10-PCS; 2023-08-23)
PROC: 0DB48ZX Excision of Esophagogastric Junction, Via Natural or Artificial Opening Endoscopic, Diagnostic (ICD-10-PCS; principal; 2023-08-23 11:30)
PROC: 0DB68ZX Excision of Stomach, Via Natural or Artificial Opening Endoscopic, Diagnostic (ICD-10-PCS; 2023-08-23 11:30)
DX: K29.71 Gastritis, unspecified, with bleeding (principal); B49 Unspecified mycosis; L97.909 Non-pressure chronic ulcer of unspecified part of unspecified lower leg with unspecified severity; N18.4 Chronic kidney disease, stage 4 (severe); Z68.44 Body mass index [BMI] 60.0-69.9, adult; K44.9 Diaphragmatic hernia without obstruction or gangrene; K20.90 Esophagitis, unspecified without bleeding; K63.5 Polyp of colon; K57.30 Diverticulosis of large intestine without perforation or abscess without bleeding; K64.8 Other hemorrhoids; K62.1 Rectal polyp; E66.01 Morbid (severe) obesity due to excess calories; E87.5 Hyperkalemia; E87.8 Other disorders of electrolyte and fluid balance, not elsewhere classified; Z79.82 Long term (current) use of aspirin; Z79.899 Other long term (current) drug therapy; Z87.891 Personal history of nicotine dependence; J44.9 Chronic obstructive pulmonary disease, unspecified; E11.51 Type 2 diabetes mellitus with diabetic peripheral angiopathy without gangrene; E11.22 Type 2 diabetes mellitus with diabetic chronic kidney disease; M19.90 Unspecified osteoarthritis, unspecified site; G89.29 Other chronic pain; M54.9 Dorsalgia, unspecified; D63.1 Anemia in chronic kidney disease; I89.0 Lymphedema, not elsewhere classified; L30.4 Erythema intertrigo; R53.81 Other malaise; E78.00 Pure hypercholesterolemia, unspecified; Z20.822 Contact with and (suspected) exposure to COVID-19; Z11.52 Encounter for screening for COVID-19
CPT/HCPCS: 36415; 71045; 80053; 80202; 81000; 82550; 82947; 83605; 83735; 83880; 84443; 84484; 85025; 85379; 85610; 85652; 85730; 86141; 86850; 86900; 86901; 86920; 87040; 87070; 87077; 87081; 87088; 87186; 87205; 87636; 93005; 94760

== ENCOUNTER → 2023-08-20 | Outpatient (CLI) | payer MEDICARE, OTHER ==
[~2023-08-20] MED LIST changes: +CEFD300C3 PO; +FERR324T4 PO; +FURO40TA4 PO; +GABA-486 PO; +PANT40TA52 PO; +SUCR1TAB PO
== END | disposition home or self-care (01) ==
LOC: PREOP 07:55
PROVIDERS: ATTEND Surgery
DX: Z01.818 Encounter for other preprocedural examination (principal)